=== PATIENT | female | born 1965 | race Caucasian/White ===

== ENCOUNTER 2017-05-15 02:43 | Emergency (ER) | payer MEDICAID, SELFPAY ==
[2017-05-15 02:44] VITALS: BP 109/53; PULSE 74; RESP 19; TEMP 36.7; O2SAT 98; BMI 35.3
--- NOTE | 2017-05-15 02:45 | EKG12_ITS ---
Test Reason : CP, SOB Blood Pressure : / mmHG Vent. Rate : 065 BPM Atrial Rate : 065 BPM P-R Int : 172 ms QRS Dur : 088 ms QT Int : 440 ms P-R-T Axes : 045 036 060 degrees QTc Int : 457 ms Normal sinus rhythm Normal ECG Confirmed by BALTAZAR NULL, GEORGE ([id number]), assistant film editor MARY WANG ([id number]) on 05/16/2017 2:10:57 PM Referred By: TOD Confirmed By:GEORGE LEDESMA MD
--- NOTE | 2017-05-15 02:45 | RAD_ITS ---
STUDY: X-RAY CHEST REASON FOR EXAM: Female, 52 years old. Shortness of breath and chest pain. TECHNIQUE: AP portable chest. COMPARISON: February 24, 2015. FINDINGS: The lungs are clear and expanded. There is no demonstrated pleural abnormality. Normal size heart. Normal mediastinum and nancie. Normal visualized pulmonary arteries. Normal visualized aortic arch and descending thoracic aorta. Normal visualized thoracic spine. Normal visualized ribs, clavicles, and shoulders. There is no demonstrated abnormality of the visualized soft tissue structures of the upper abdomen. RAD/Chest 1 View (Portable) IMPRESSION: No acute cardiopulmonary disease. Electronically Signed: Aryan Field MD at 3:41 EST , Service support ,
[2017-05-15 02:51] VITALS: O2SAT 99
[2017-05-15 02:52] VITALS: O2SAT 100
[2017-05-15 02:57] VITALS: BP 109/53; PULSE 75; RESP 21; O2SAT 98
[2017-05-15 03:01] LABS: Absolute Lymphocyte Count 3.47 X10^3/ul (0.83-4.51); Absolute Neutrophil Count 2.6 X10^3/uL (2.0-7.7); Basophil# 0.06 X10^3/uL; Basophil% 0.9 % (0-1); Eosinophil# 0.17 X10^3/uL; Eosinophils% 2.5 % (0-5); Hematocrit 36.5 % (37-47); Hemoglobin 12.8 g/dl (12.0-15.0); Lymphocyte # 3.47 X10^3/ul (4.0); Lymphocyte % 50.4 % (19-41); Mean Corp Hgb Conc 35.1 g/gl (32-36); Mean Corpuscular Hgb 33.6 pg (27.0-32.0); Mean Corpuscular Volume 95.8 fL (81-99); Monocyte# 0.61 X10^3/uL; Monocyte% 8.9 % (0-10); Neutrophil # 2.57 X10^3/uL (2.7-7.7); Neutrophil % 37.2 % (47-70); POSITIVE COUNT NO; POSITIVE DIFFERENTIAL NO; POSITIVE MORPHOLOGY NO; Platelet Count 321 K/mm3 (150-450); RBC Distribution Width CV 13.3 % (11.6-14.6); RBC Distribution Width SD 44.8 fl (35.1-43.9); Red Blood Count 3.81 M/mm3 (4.2-5.4); White Blood Count 6.9 K/mm3 (4.4-11.0)
--- NOTE | 2017-05-15 03:09 | ED.VISSUMM ---
- ER Visit Summary Date of Service: 05/15/17 Chief Complaint: Chest pain, shortness of breath History of Present Illness: The patient is a 52 F with chest pain shortness of breath. Patient states that she has had a cough for the past few days. She states she cannot find anything that helps the cough go away. She states that now she has begun to have chest pain. She describes it as a heaviness across her chest into her back. Patient states that she was drinking moonshine in an attempt to get the cough to stop. She states that it did not help the pain. Tonight, she was having increasing shortness of breath and called squad. History is hard to gather from the patient. 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 She did follow with Dr. Barrientos, but states she has not seen him in some time. She does smoke daily. She denies any other cardiac risk factor. Physical Examination: Vital signs reviewed General: Well-nourished, well-developed Head: Normocephalic, atraumatic Eyes: Pupils equal and reactive, extraocular muscles intact Neck, supple, no lymphadenopathy Heart: Regular rate and rhythm Respiratory: No distress, clear bilaterally Abdomen: Soft, nontender, nondistended, no peritoneal signs Back: Nontender Extremities: Nontender, no edema, no cords Skin: Normal color no rash Neuro: Alert and oriented, no focal or lateralizing deficits Test Results: EKG was sinus rhythm. There is no acute ischemic change. Screening labs are unremarkable. Emergency Department Course and Treatment: Patient presents with chest pain, cough, shortness of breath. She had clear lungs. Her pain was not reproducible. She does give some history that she may have had a prior KS, but is never had a heart catheterization. Patient was given aspirin. Chest x-ray shows no focal or acute abnormalities. Screening labs including lipase are unremarkable. Initial cardiac enzymes are negative. With the patient's pain in the middle of her chest that goes to her back, I did want to rule out aortic dissection. Patient underwent CTA of the chest and abdomen. The read is currently pending. The patient was very upset that she had to wait so long. Both myself and the nurses did to try to redirect her. She states she does not want to wait any further. I did explain to her with her chest pain and history, it would be important to evaluate this. She states she does not want to stay. Patient is very uncomfortable staying in the room. She states I just have places to go. I have basically begged the patient to stay to complete her workup and she refused. I do feel the patient has capacity to make her own decisions. She understands the risks. I did mental health counselor her that if this is cardiac in nature she can suffer myocardial infarction leading to or permanent disability. She still does not want to stay. I did try to offer her other analgesics to help with her pain. The patient has demanded to leave. At this time, the patient will leave AGAINST MEDICAL ADVICE. She has refused to sign the paperwork. Patient was counseled that if things change that she can return for reevaluation. The patient has left AGAINST MEDICAL ADVICE prior to completion of workup. Treatment Plan: [] Disposition: AGAINST MEDICAL ADVICE Impression: 1. Chest pain This note was generated with [employer] dictation software. It may contain incorrect words, spelling, and punctuation that were not noted in review of the chart prior to signing ED Disposition - Plan for ED Patient: Chief Complaint: Chest Pain Referrals: Renaldo Duran MD [Primary Care Provider] -
[2017-05-15 03:28] LABS: Anion Gap 12 (5-15); BUN 7 mg/dL (7-18); BUN/Creat Ratio 7.7 RATIO (10-20); Calcium,Total 8.4 mg/dL (8.5-10.1); Chloride 99 mmol/L (98-107); Creatinine, Serum 0.91 mg/dL (0.55-1.02); EST Glomerular Filtration Rate 68 mL/min (>60); Est Glom Filt Rate - Afr Amer 83 mL/min (>60); Estimated Creatinine Clearance 61.03 ml/min; Glucose 96 mg/dL (74-106); Potassium 3.7 mmol/L (3.5-5.1); Sodium Level 134 mmol/L (136-145)
--- NOTE | 2017-05-15 03:47 | CT_ITS ---
STUDY: CTA OF THE ABDOMEN AND PELVIS WITH CONTRAST. REASON FOR EXAM: Female, 52 years old. Shortness breath. Chest pain. RADIATION DOSAGE (If Supplied By Facility): CTDIvol = ( 19.68 ) mGy, DLP = ( 896.22 ) mGycm. Individualized dose optimization techniques were used for this CT.? FLUOROSCOPY TIME (if supplied): ( ) minutes/seconds TECHNIQUE: Axial images through the abdomen and pelvis after administration of 100 mL Isovue-370 intravenous contrast with sagittal coronal reconstructions. COMPARISON: Chest x-ray May 15, 2017. FINDINGS: The heart is not enlarged. Lung bases are clear. The liver, gallbladder, pancreas, spleen, adrenal glands, kidneys, ureters, bladder are normal. Uterus absent compatible with hysterectomy. No adnexal masses seen. Stomach is normal. Small intestine is unremarkable. Colon is unremarkable. Postoperative changes suggestive of appendectomy. No intra-abdominal free air. Mild atherosclerotic changes of the abdominal aorta without aneurysmal dilatation. Origins of the celiac axis, superior mesenteric artery, single bilateral renal arteries and inferior mesenteric artery are patent. Mild degenerative changes of the lumbar spine. CT/CT ANGIO ABD&PEL W/O&W/DYE IMPRESSION: No acute findings in the abdomen or pelvis. Mild atherosclerotic calcification of the abdominal aorta without aneurysmal dilatation. Major aortic branch vessels are patent. Electronically Signed: Aryan Field MD at 4:49 EST , Service support ,
--- NOTE | 2017-05-15 03:47 | CT_ITS ---
STUDY: CTA CHEST REASON FOR EXAM: Female, 52 years old. Chest pain. RADIATION DOSAGE (If Supplied By Facility): CTDIvol = ( 11.56 ) mGy, DLP = ( 563.69 ) mGycm TECHNIQUE: The examination was performed with the intravenous administration of 100 ml of Isovue 370 contrast material. Post-processing of the angiographic images was performed, with multiplanar reformation and 3D reconstruction. Individualized dose optimization techniques were used for this CT. COMPARISON: Chest x-ray May 15, 2017. FINDINGS: Normal enhancement of the main pulmonary artery and right and left pulmonary arteries. Normal enhancement of the bilateral peripheral pulmonary arteries. There is no demonstrated pulmonary embolism. Normal thoracic aorta and visualized great vessels. There is no demonstrated aortic dissection. Normal heart and pericardium. Normal mediastinum. Normal hilar regions. Normal visualized trachea and bronchi. The lungs are well expanded. Normal pulmonary parenchyma. Normal pleura. Normal chest wall structures. Mild degenerative changes of the thoracic spine. Normal visualized upper abdomen. CT/CTA Chest W/WO Contrast IMPRESSION: No demonstrated pulmonary embolism or arterial dissection. Electronically Signed: Aryan Field MD at 4:54 EST , Service support ,
[2017-05-15 03:51] LABS: Lipase 168 U/L (73-393)
[2017-05-15 03:53] VITALS: BP 105/81; PULSE 79; RESP 18; O2SAT 98
--- NOTE | 2017-05-15 04:18 | ED.RN ---
WENT TO GIVE PT HER MORPHINE, PT NOT IN ROOM, HER WAS NOT IN THE ROOM EITHER. PT WAS DRESSED AND WITH HER AT THE NURSES STATION. PT WANTED TO LEAVE BECAUSE NOTHING IS WRONG AND I'M NOT GOING TO WAIT THAT LONG. DR. BARON, THIS RN, AND ALFIE RN, EXPLAINED TO PT THAT SHE HER BLOOD WORK LOOKED GOOD BUT THAT IS WHY WE SENT HER FOR THE CT. EXPLAINED TO PT THAT SHE JUST CAME BACK FROM CT AND IT WILL BE 1 HR FOR RESULTS. PT REFUSED TO STAY. IV D/C, PT IS GOING TO CALL A TAXI.
== END 2017-05-15 04:22 | disposition left against medical advice (07) ==
LOC: ED 03:34
PROVIDERS: Emergency Provider Emergency Medicine; Family Provider Family Medicine; PCP Family Medicine
DX: R07.9 Chest pain, unspecified (principal); R06.02 Shortness of breath; R05 Cough; R06.00 Dyspnea, unspecified; R11.0 Nausea; R00.2 Palpitations; F17.200 Nicotine dependence, unspecified, uncomplicated; Z79.899 Other long term (current) drug therapy; I25.2 Old myocardial infarction
CPT/HCPCS: 71045; 71275; 74174; 80048; 80320; 83690; 84484; 85025; 93005; 99285; Q9967; A4216; G0480

== ENCOUNTER 2021-04-05 18:31 | Emergency (ER) | payer MEDICAID, SELFPAY ==
[2021-04-05] VITALS (22 sets, daily range): BP systolic 124–208; BP diastolic 68–110; PULSE 68–86; RESP 11–21; TEMP 36.6–36.8; O2SAT 96–100; BMI 31.8
--- NOTE | 2021-04-05 18:35 | EKG12_ITS ---
Test Reason : DYSRHYTHMIA Blood Pressure : / mmHG Vent. Rate : 072 BPM Atrial Rate : 072 BPM P-R Int : 180 ms QRS Dur : 086 ms QT Int : 412 ms P-R-T Axes : 052 -01 050 degrees QTc Int : 451 ms Normal sinus rhythm Normal ECG Confirmed by BALTAZAR NULL, GEORGE ([id number]), purchase request editor FLORIAN HINSON ([id number]) on 04/06/2021 1:33:37 PM Referred By: EVARISTO Confirmed By:GEORGE LEDESMA MD
--- NOTE | 2021-04-05 18:35 | CT_ITS ---
We are attempting to reach an attending provider to discuss findings. An addendum with communication details will be sent when the communication is complete. EXAM: CT HEAD WITHOUT INTRAVENOUS CONTRAST CLINICAL INDICATION: Neuro deficit, acute, stroke suspected TECHNIQUE: Multiple axial images were obtained of the head without intravenous contrast. This CT exam was performed using one or more of the following dose reduction techniques: automated exposure control, adjustment of the mA and/or kV according to patient size, and/or use of iterative reconstruction technique. This report was created using [employer] report [employer] technology. COMPARISON: None. FINDINGS: BRAIN AND EXTRA-AXIAL SPACES: Unremarkable. No intra- or extra-axial hemorrhage. No evidence of acute infarct. No intracranial mass or mass effect. There is preservation of the albright/white matter interface. Posterior fossa structures are unremarkable. Ventricles are appropriate for age. No hydrocephalus. Basal cisterns are patent. BONES/JOINTS: Unremarkable. No discrete lytic or blastic abnormalities. SINUSES: Unremarkable as visualized. Clear. MASTOID AIR CELLS: Unremarkable. Clear. ORBITS: Visualized globes, extraocular muscles, optic nerves and retrobulbar fat appear unremarkable. CT/STROKE Brain/Head without Cont IMPRESSION: Negative head/brain CT without intravenous contrast. Electronically Signed: Ton Subramanian MD at 18:49 EST , Service support ,
--- NOTE | 2021-04-05 18:36 | CT_ITS ---
We are attempting to reach an attending provider to discuss findings. An addendum with communication details will be sent when the communication is complete. EXAM: CT ANGIOGRAPHY HEAD AND NECK WITH INTRAVENOUS CONTRAST CLINICAL INDICATION: Neuro deficit, acute, stroke suspected TECHNIQUE: [place]/head and neck CT angiography protocol performed with intravenous contrast. This CT exam was performed using one or more of the following dose reduction techniques: automated exposure control, adjustment of the mA and/or kV according to patient size, and/or use of iterative reconstruction technique. This report was created using [employer] report generation technology. MIP reconstructed images were created and reviewed. CONTRAST: IV 100mL Isovue-370 COMPARISON: None. FINDINGS: HEAD: RIGHT ANTERIOR CEREBRAL ARTERY: Unremarkable. No significant stenosis at the visualized segments. Anterior communicating artery is present. No aneurysm. RIGHT MIDDLE CEREBRAL ARTERY: Unremarkable. No significant stenosis at the visualized segments. No aneurysm. RIGHT POSTERIOR CEREBRAL ARTERY: Unremarkable. No occlusion or significant stenosis. No aneurysm. LEFT ANTERIOR CEREBRAL ARTERY: Unremarkable. No significant stenosis at the visualized segments. No aneurysm. LEFT MIDDLE CEREBRAL ARTERY: Unremarkable. No significant stenosis at the visualized segments. No aneurysm. LEFT POSTERIOR CEREBRAL ARTERY: Unremarkable. No occlusion or significant stenosis. No aneurysm. BASILAR ARTERY: Unremarkable. No significant stenosis. No aneurysm. GREAT VESSELS OF AORTIC ARCH: Unremarkable. Normal anatomy, patent. OTHER VASCULATURE: No vascular malformation. NECK: RIGHT COMMON CAROTID ARTERY: Unremarkable. No significant stenosis. No dissection or occlusion. RIGHT INTERNAL CAROTID ARTERY: There is significant soft atherosclerotic plaque formation vs mural thrombus of the origin of the right internal carotid artery with 84% cross sectional diameter stenosis. ALL ABOVE CRITERIA BY NASCET. RIGHT EXTERNAL CAROTID ARTERY: Unremarkable. No occlusion. RIGHT VERTEBRAL ARTERY: The origin of the right vertebral artery is not clearly noted due to motion artifact. It is difficult to exclude underlying stenosis or occlusion. Also the caliber of the right vertebral artery is small making it difficult to note. However, There is distal reconstitution into the distal vertebral artery with possible slow flow and or partial occlusion. Se 2 IM: 278. There is enhancement within the bilateral vertebral arteries with a small right vertebral artery, and a dominant left vertebral artery. LEFT COMMON CAROTID ARTERY: Unremarkable. No significant stenosis. No dissection or occlusion. LEFT INTERNAL CAROTID ARTERY: There is mild atherosclerotic plaque formation of the origin of left internal carotid artery with less than 50% cross sectional diameter stenosis. ALL ABOVE CRITERIA BY NASCET. No dissection or occlusion. LEFT EXTERNAL CAROTID ARTERY: Unremarkable. No occlusion. LEFT VERTEBRAL ARTERY: See above. LUNG APICES: Unremarkable as visualized. SOFT TISSUES: Unremarkable. OTHER FINDINGS: There are no acute findings of the [place] without a demonstrated aneurysm or hemodynamically significant stenosis. ALL ABOVE CRITERIA BY NASCET. CF called. There are degenerative findings of the cervical spine. CAROTID STENOSIS REFERENCE USING NASCET CRITERIA: % ICA stenosis = (1 - narrowest ICA diameter/diameter of distal cervical ICA) x 100. Mild - <50% stenosis. Moderate - 50-69% stenosis. Severe - 70-94% stenosis. Near occlusion - 95-99% stenosis. Occluded - 100% stenosis. CT/STROKE CTA Head AND Neck W/Con IMPRESSION: 1. There is mild atherosclerotic plaque formation of the origin of left internal carotid artery with less than 50% cross sectional diameter stenosis. ALL ABOVE CRITERIA BY NASCET. 2. There is significant soft atherosclerotic plaque formation vs mural thrombus of the origin of the right internal carotid artery with 84% cross sectional diameter stenosis. ALL ABOVE CRITERIA BY NASCET. 3. The origin of the right vertebral artery is not clearly noted due to motion artifact. It is difficult to exclude underlying stenosis or occlusion. Also the caliber of the right vertebral artery is small making it difficult to note. However, There is distal reconstitution into the distal vertebral artery with possible slow flow and or partial occlusion. Se 2 IM: 278. 4. There are no acute findings of the [place] without a demonstrated aneurysm or hemodynamically significant stenosis. ALL ABOVE CRITERIA BY NASCET. Electronically Signed: Ton Subramanian MD at 19:14 EST , Service support ,
--- NOTE | 2021-04-05 18:38 | CASEMGMT ---
Social Work Responding to Stroke Alert. No family present. Patient alert and oriented currently. Will continue to follow. Mustapha WHYTE, HEATHER
[2021-04-05 18:41] LABS: Bedside Glucose 110 mg/dL (70-110)
[2021-04-05] MEDS: Labetalol (Prefilled) 20 MG/4 ML IV (18:49)
[2021-04-05 19:00] LABS: Absolute Lymphocyte Count 2.89 X10^3/uL (0.83-4.51); Absolute Neutrophil Count 4.4 X10^3/uL (2.0-7.7); Basophil# 0.05 X10^3/uL; Basophil% 0.6 % (0-1); Eosinophil# 0.13 X10^3/uL; Eosinophils% 1.6 % (0-5); Hematocrit 45.4 % (37-47); Hemoglobin 15.6 g/dL (12.0-15.0); Lymphocyte # 2.89 X10^3/ul (0.83-4.51); Lymphocyte % 35.3 % (19-41); Mean Corp Hgb Conc 34.4 g/dL (32-36); Mean Corpuscular Hgb 34.9 pg (27.0-32.0); Mean Corpuscular Volume 101.6 fL (81-99); Mean Platelet Vol. 10.6 fl (6.2-12.0); Monocyte# 0.69 X10^3/uL; Monocyte% 8.4 % (0-10); NRBC Flagged by Analyzer 0 % (0-5); Neutrophil # 4.39 X10^3/uL (2.7-7.7); Neutrophil % 53.7 % (47-70); Platelet Count 314 K/mm3 (150-450); RBC Distribution Width CV 13.2 % (11.6-14.6); RBC Distribution Width SD 49.7 fl (35.1-43.9); Red Blood Count 4.47 M/mm3 (4.2-5.4); White Blood Count 8.2 K/mm3 (4.4-11.0)
--- NOTE | 2021-04-05 19:04 | ED.VIS.STROK ---
HPI History of Present Illness Chief Complaint: Numb/Ting Informant: patient Onset/Context/Timing Onset: Today Context: Sudden Onset Timing: Continuous Quality and Location: Positive for Left Face Parasthesia, Left Arm Parasthesia, Left Leg Parasthesia and - (Blurry vision, double vision) Onset: Today at 1700 Worsened by: Nothing Relieved by: Nothing Associated Symptoms Associated Symptoms: Negative for Headache, Nausea, Vomiting and Chest Pain Narrative Narrative: Patient presents with numbness over her left face, arm, and thigh that began today. Patient also admits to some blurred vision and double vision today. Patient states this began around 1700 tonight. Patient states it began rather suddenly. Patient denies any chest pain or shortness of breath. Patient denies any nausea or vomiting. Patient denies any headaches. Patient denies any weakness. Patient states that when she walks she feels like she is leaning to the right. Patient has a history of peripheral arterial disease and hypertension. [facility] Medical History (Updated 04/05/21 @ 20:[address] Frank Multani DO) HTN (hypertension) Mitral valve prolapse Home Medications albuterol sulfate [Ventolin HFA] 2 puff INHALATION Q4H PRN PRN 04/05/21 [History Last Taken Unknown] atenolol 75 mg PO DAILY 04/05/21 [History Last Taken Unknown] famotidine 40 mg PO DAILY 04/05/21 [History Last Taken Unknown] nitroglycerin 0.4 mg SUBLINGUAL Q5M PRN 04/05/21 [History Last Taken Unknown] Allergy/AdvReac Type Severity Reaction Status Date / Time No Known Allergies Allergy Verified 05/15/17 02:53 Surgical History (Updated 04/05/21 @ 20:14 by Eunice Barnes) H/O: hysterectomy History of appendectomy Social History Smoking Status: Current every day smoker tobacco type: cigarettes ROS ROS ED Constitutional Constitutional ED: Denies chills or fever(s) Eyes Eyes: Reports blurry vision and diplopia ENT ENT ED: Denies rhinorrhea or sore throat Cardiovascular Cardiovascular: Denies chest pain or palpitations Respiratory/Chest Respiratory/Chest: Denies cough or dyspnea Gastrointestinal Gastrointestinal: Denies nausea or vomiting Genitourinary Genitourinary ED: Denies dysuria or hematuria Musculoskeletal Musculoskeletal: Denies back pain or neck pain Integumentary Denies abscess or rash Neurologic Neurologic: Reports paresthesias LUE and LLE; Denies headache(s) or weakness Allergic/Immunologic Allergic/Immunologic ED: Denies mouth swelling or urticaria EXAM Physical Exam Const Vital Signs: 04/05/21 18:32 04/05/21 18:35 04/05/21 18:50 Temperature 97.8 F 97.8 F Temperature Source Temporal Temporal Pulse Rate 75 82 Respiratory Rate 15 15 Blood Pressure 208/104 H 179/97 H Blood Pressure Mean 138 124 Blood Pressure Source Blood Pressure Position Blood Pressure Location Pulse Ox 99 99 Oxygen Delivery Method Room Air Room Air 04/05/21 18:56 04/05/21 19:00 04/05/21 19:07 Temperature 97.8 F Temperature Source Temporal Pulse Rate 82 72 Respiratory Rate 13 14 Blood Pressure 201/105 H 205/110 H Blood Pressure Mean 137 141 Blood Pressure Source Monitor Blood Pressure Position Semi-Fowlers Blood Pressure Location Right Arm Pulse Ox 99 99 100 Oxygen Delivery Method Room Air Room Air 04/05/21 19:16 04/05/21 19:20 04/05/21 19:35 Temperature 97.8 F 97.9 F Temperature Source Temporal Temporal Pulse Rate 81 86 Respiratory Rate 11 L 13 Blood Pressure 182/95 H 165/97 H 161/92 H Blood Pressure Mean 119 115 Blood Pressure Source Monitor Monitor Blood Pressure Position Semi-Fowlers Semi-Fowlers Blood Pressure Location Right Arm Right Arm Pulse Ox 98 98 Oxygen Delivery Method Room Air Room Air 04/05/21 19:50 04/05/21 20:00 04/05/21 20:15 Temperature 98.3 F 98.2 F 98 F Temperature Source Temporal Temporal Temporal Pulse Rate 83 81 83 Respiratory Rate 17 17 14 Blood Pressure 157/90 H 148/92 H 149/71 H Blood Pressure Mean 112 110 97 Blood Pressure Source Monitor Monitor Monitor Blood Pressure Position Semi-Fowlers Semi-Fowlers Semi-Fowlers Blood Pressure Location Right Arm Right Arm Right Arm Pulse Ox 97 98 97 Oxygen Delivery Method Room Air Room Air Room Air 04/05/21 20:30 04/05/21 20:45 04/05/21 21:00 Temperature 97.8 F 98 F 98 F Temperature Source Temporal Temporal Temporal Pulse Rate 83 81 85 Respiratory Rate 16 18 14 Blood Pressure 139/89 H 141/87 H 153/95 H Blood Pressure Mean 105 105 114 Blood Pressure Source Monitor Monitor Monitor Blood Pressure Position Semi-Fowlers Supine Semi-Fowlers Blood Pressure Location Right Arm Right Arm Right Arm Pulse Ox 97 99 97 Oxygen Delivery Method Room Air Room Air Room Air 04/05/21 21:15 04/05/21 21:45 04/05/21 22:15 Temperature 97.8 F 97.8 F 97.8 F Temperature Source Temporal Temporal Temporal Pulse Rate 86 82 84 Respiratory Rate 15 17 15 Blood Pressure 155/91 H 136/92 H 141/81 H Blood Pressure Mean 112 106 101 Blood Pressure Source Monitor Monitor Monitor Blood Pressure Position Semi-Fowlers Semi-Fowlers Semi-Fowlers Blood Pressure Location Right Arm Right Arm Right Arm Pulse Ox 97 97 97 Oxygen Delivery Method Room Air Room Air Room Air 04/05/21 22:23 04/05/21 22:45 Temperature Temperature Source Pulse Rate 80 85 Respiratory Rate 12 21 H Blood Pressure 141/81 H 138/102 H Blood Pressure Mean 101 114 Blood Pressure Source Blood Pressure Position Blood Pressure Location Pulse Ox 97 96 Oxygen Delivery Method Room Air Positive well nourished and well developed General Appearance ED: well developed HEENT Reports moist mucous membranes Neck supple and no JVD Resp normal respiratory effort and clear to auscultation bilaterally Cardio regular rate, regular rhythm and no murmurs GI normal to inspection, nondistended, normoactive bowel sounds and non-tender Palpation: soft Extremity normal to inspection General Extremety ED: Negative for edema or tenderness General Extremity: Negative for edema Neuro oriented x3 and CN's II-XII intact bilaterally Neuro Narrative: There is decreased sensation with light touch in the left upper extremity, left thigh, and left face. Megha Coma Scale: document GCS findings Spontaneous Obeys Commands Oriented 15 Sensorium / Orientation: alert Motor Exam: strength 5/5 throughout Psych mental status grossly normal Skin no rashes or lesions noted STROKE Vital Signs/Narrative: Vital Signs Temp Pulse Resp BP Pulse Ox 04/05/21 22:45 85 21 H 138/102 H 96 04/05/21 22:23 80 12 141/81 H 97 04/05/21 22:15 97.8 F 84 15 141/81 H 97 04/05/21 21:45 97.8 F 82 17 136/92 H 97 04/05/21 21:15 97.8 F 86 15 155/91 H 97 04/05/21 21:00 98 F 85 14 153/95 H 97 04/05/21 20:45 98 F 81 18 141/87 H 99 04/05/21 20:30 97.8 F 83 16 139/89 H 97 04/05/21 20:15 98 F 83 14 149/71 H 97 04/05/21 20:00 98.2 F 81 17 148/92 H 98 04/05/21 19:50 98.3 F 83 17 157/90 H 97 04/05/21 19:35 97.9 F 86 13 161/92 H 98 04/05/21 19:20 97.8 F 81 11 L 165/97 H 98 04/05/21 19:16 182/95 H 04/05/21 19:07 97.8 F 72 14 205/110 H 100 04/05/21 19:00 82 13 201/105 H 99 04/05/21 18:56 99 MDM MDM MDM Narrative Medical decision making narrative: Stroke alert was activated. Initial CT scan of the brain was obtained. There is no acute abnormality noted. CTA of the head and neck was obtained. There is some stenosis of the right internal carotid artery and right vertebral artery. There is collateral flow noted. There is no large vessel occlusion. EKG was obtained. On my interpretation, it showed a normal sinus rhythm with a rate of 72. [place] interval, QRS interval, and QTc intervals were all normal. Roca was normal. There are no acute ST or T wave changes. CBC was within normal limits. PT with INR and PTT were normal. Basic metabolic profile was obtained. Initial high-sensitivity troponin was normal. Stroke neurologist from [facility] evaluated the patient. He felt that since the patient was having visual disturbances, he recommended tPA administration despite the low NIH scale. Patient is agreeable with this. Patient's blood pressure initially was 208/104. The blood pressure was treated with labetalol and then started on a Cardene drip. Patient's blood pressure improved with this. Patient's vision was still blurry. Because of this, patient is agreeable to receive tPA. This was ordered and administered. Portable 1 view chest x-ray was obtained. On my interpretation, lung noel are clear. There is normal cardiac silhouette. Bony thorax is normal. There is no acute process noted. Radiologist also interpreted the x-ray and agrees. Case was discussed with the hospitalist. He felt that the patient needed to be transferred to a facility that can manage her stenosis of her right internal carotid artery as well as her vertebral artery stenosis. Patient is agreeable with this. Case was discussed with [facility]. Patient was accepted to be transferred to the emergency department [facility] to the service of Dr. Schuster. Patient understands and is agreeable with the plan. All questions were answered. Lab Data Attestation: I reviewed the patient's lab results. Labs: Laboratory Results - last 24 hr 04/05/21 04/05/21 04/05/21 18:37 18:50 18:50 WBC 8.2 RBC 4.47 Hgb 15.6 H Hct 45.4 MCV 101.6 H MCH 34.9 H MCHC 34.4 RDW Std Deviation 49.7 H RDW Coeff of Frieda 13.2 Plt Count 314 MPV 10.6 Immature Gran % (Auto) 0.400 Neut % (Auto) 53.7 Lymph % (Auto) 35.3 [place] % (Auto) 8.4 Eos % (Auto) 1.6 Baso % (Auto) 0.6 Absolute Neuts (auto) 4.4 Absolute Lymphs (auto) 2.89 Nucleated RBC % 0 PT 12.4 INR 1.0 APTT 26.9 Sodium Potassium Chloride Carbon Dioxide Anion Gap BUN Creatinine Estim Creat Clear Calc Est GFR (MDRD) Af Amer Est GFR (MDRD) Non-Af BUN/Creatinine Ratio Glucose Calcium Troponin I High Sens POC Glucose 110 04/05/21 04/05/21 18:50 20:25 WBC RBC Hgb Hct MCV MCH MCHC RDW Std Deviation RDW Coeff of Frieda Plt Count MPV Immature Gran % (Auto) Neut % (Auto) Lymph % (Auto) [place] % (Auto) Eos % (Auto) Baso % (Auto) Absolute Neuts (auto) Absolute Lymphs (auto) Nucleated RBC % PT INR APTT Sodium 137 Potassium 3.7 Chloride 103 Carbon Dioxide 25.0 Anion Gap 9 BUN 10 Creatinine 1.19 H Estim Creat Clear Calc 48.24 Est GFR (MDRD) Af Amer 60 Est GFR (MDRD) Non-Af 50 L BUN/Creatinine Ratio 8.4 L Glucose 102 Calcium 9.2 Troponin I High Sens 4 3 POC Glucose Radiography Diagnostic Testing: Clinical Impression(s) from Imaging Studies Brain CT 04/05/21 18:35 IMPRESSION: Negative head/brain CT without intravenous contrast. Electronically Signed: Ton Subramanian MD at 18:49 EST , Service support , ADDENDUM: 04/05/21 1900 IMPRESSION: Negative head/brain CT without intravenous contrast. N.B. : The above Results were Read Back by Ton Subramanian MD to Frank Multani DO, DO, and understanding confirmed on 04/05/2021 18:53:37 (ET). Electronically Signed: Ton Subramanian MD at 18:49 EST , Service support , Head/Neck CTA 04/05/21 18:36 IMPRESSION: 1. There is mild atherosclerotic plaque formation of the origin of left internal carotid artery with less than 50% cross sectional diameter stenosis. ALL ABOVE CRITERIA BY NASCET. 2. There is significant soft atherosclerotic plaque formation vs mural thrombus of the origin of the right internal carotid artery with 84% cross sectional diameter stenosis. ALL ABOVE CRITERIA BY NASCET. 3. The origin of the right vertebral artery is not clearly noted due to motion artifact. It is difficult to exclude underlying stenosis or occlusion. Also the caliber of the right vertebral artery is small making it difficult to note. However, There is distal reconstitution into the distal vertebral artery with possible slow flow and or partial occlusion. Se 2 IM: 278. 4. There are no acute findings of the [place] without a demonstrated aneurysm or hemodynamically significant stenosis. ALL ABOVE CRITERIA BY NASCET. Electronically Signed: Ton Subramanian MD at 19:14 EST , Service support , ADDENDUM: 04/05/21 1922 IMPRESSION: 1. There is mild atherosclerotic plaque formation of the origin of left internal carotid artery with less than 50% cross sectional diameter stenosis. ALL ABOVE CRITERIA BY NASCET. 2. There is significant soft atherosclerotic plaque formation vs mural thrombus of the origin of the right internal carotid artery with 84% cross sectional diameter stenosis. ALL ABOVE CRITERIA BY NASCET. 3. The origin of the right vertebral artery is not clearly noted due to motion artifact. It is difficult to exclude underlying stenosis or occlusion. Also the caliber of the right vertebral artery is small making it difficult to note. However, There is distal reconstitution into the distal vertebral artery with possible slow flow and or partial occlusion. Se 2 IM: 278. 4. There are no acute findings of the [place] without a demonstrated aneurysm or hemodynamically significant stenosis. ALL ABOVE CRITERIA BY NASCET. N.B. : The above Results were Read Back by Ton Subramanian MD to Frank Multani DO, DO, and understanding confirmed on 04/05/2021 19:15:42 (ET). Electronically Signed: Ton Subramanian MD at 19:14 EST , Service support , Chest X-Ray 04/05/21 19:44 IMPRESSION: There are no acute findings. Electronically Signed: Ton Subramanian MD at 19:58 EST , Service support , EKG Initial EKG: Attestation: I personally reviewed and interpreted this EKG as follows: Interpretation: Sinus Rhythm (72) and No Acute Injury Pattern Prior EKG tracings: available for review Prior: Unchanged (05/15/2017) Treatment and Re-Evaluation Vital Sign Attestation:: Vital signs were reviewed prior to transfer. They are stable. Stroke Documentation Questions Stroke Team Activated: Yes Reviewed Inclusion/Exclusion criteria: Yes IV Alteplase (t-PA) Administered: Yes No contraindications for IV Alteplase (t-PA) administration.: Yes Alteplase (t-PA) risks, benefits, alternative discussed: Yes Critical Care Time Critical Care Time: Yes Critical care time (excluding procedures): 30-74 minutes (44), Including time spent:, Discussing w/Patient &/or Family/Head Of Store Operations, Discussing w/Consultants, Arranging Admission or Transfer and Performing Direct Patient Care at Bedside Discharge Plan Triage Chief Complaint: Numb/Ting ED Provider: Frank Multani Dx/Rx/DC Orders Clinical Impression: Acute stroke due to ischemia Prescriptions: No Action albuterol sulfate [Ventolin HFA] 90 mcg/actuation HFA aerosol inhaler 2 puff INHALATION Q4H PRN PRN (Reason: Wheezing) RF: 0 atenolol 50 mg tablet 75 mg PO DAILY RF: 0 famotidine 40 mg Tablet 40 mg PO DAILY RF: 0 nitroglycerin 0.4 mg Tablet, Sublingual 0.4 mg SUBLINGUAL Q5M PRN (Reason: Chest Pain) RF: 0 Primary Care Provider: Renaldo Duran Referrals: Renaldo Duran MD [Primary Care Provider] - Disposition Disposition: Acute Care Hospital Discharge Location: [facility]
[2021-04-05 19:07] LABS: Prothrombin Time (Protime)PT. 12.4 SECONDS (11.7-14.9)
[2021-04-05] MEDS: Nicardipine HCl-0.9% Sod Chlor 20 MG/200 ML IV.SOLN 50 MG IV (19:07)
[2021-04-05 19:09] LABS: Partial Thromboplast Time 26.9 Seconds (24.1-36.2)
[2021-04-05 19:14] LABS: Anion Gap 9 (5-15); BUN 10 mg/dL (7-18); BUN/Creat Ratio 8.4 RATIO (10-20); Calcium,Total 9.2 mg/dL (8.5-10.1); Chloride 103 mmol/L (98-107); Creatinine, Serum 1.19 mg/dL (0.55-1.02); EST Glomerular Filtration Rate 50 mL/min (>60); Est Glom Filt Rate - Afr Amer 60 mL/min (>60); Estimated Creatinine Clearance 48.24 ml/min; Glucose 102 mg/dL (74-106); Potassium 3.7 mmol/L (3.5-5.1); Sodium Level 137 mmol/L (136-145); Troponin-I HS 4 pg/mL (3.0-54.0)
--- NOTE | 2021-04-05 19:30 | ED.RN ---
PER [facility], TPA HELD UNTIL BLOOD PRESSURE <185/110 WITH CARDENE DRIP. AFTER BLOOD PRESSURES <185/110, REASSESS VISION, IF ANY VISUAL DEFICITS REMAIN, ADMIN TPA. PT CONTINUED WITH BLURRED VISION AFTER BLOOD PRESSURE <185/110, TPA ADMINISTERED PER DR MORAES.
--- NOTE | 2021-04-05 19:44 | RAD_ITS ---
STUDY: X-RAY CHEST REASON FOR EXAM: Female, 56 years old. CHEST PAIN Technologist Notes VISUAL CHANGES, N/T LEFT SIDE.Neuro deficit, acute, stroke suspected TECHNIQUE: XR Chest 1 View COMPARISON: 05/15/17 FINDINGS: There is no demonstrated pleural abnormality. Normal size heart. Normal mediastinum and nancie. Normal visualized pulmonary arteries. Normal visualized aortic arch and descending thoracic aorta. Normal visualized thoracic spine. Normal visualized ribs, clavicles, and shoulders. There is no demonstrated abnormality of the visualized soft tissue structures of the upper abdomen. RAD/Chest 1 View IMPRESSION: There are no acute findings. Electronically Signed: Ton Subramanian MD at 19:58 EST , Service support ,
[2021-04-05 21:02] LABS: Troponin-I HS 3 pg/mL (3.0-54.0)
== END 2021-04-05 23:32 | disposition short-term general hospital (02) ==
PROVIDERS: Emergency Provider Emergency Medicine; PCP Family Medicine; Visit Provider Emergency Medicine
DX: I63.233 Cerebral infarction due to unspecified occlusion or stenosis of bilateral carotid arteries (principal); F17.210 Nicotine dependence, cigarettes, uncomplicated; I10 Essential (primary) hypertension; Z79.899 Other long term (current) drug therapy
CPT/HCPCS: 70450; 70496; 70498; 71045; 80048; 82962; 84484; 85025; 85610; 85730; 93005; 96361; 96365; 96366; 96367; 96375; 99285; J2997; J7050; Q9967; A4216

== ENCOUNTER 2021-05-05 06:33 | Outpatient (CLI) | payer MEDICAID, SELFPAY ==
--- NOTE | 2021-05-05 13:11 | STRESSREP ---
Stress Test Report Date: 05-05-2021 Procedure: Pharmacologic stress nuclear imaging study Indications: Peripheral arterial occlusive disease/carotid artery disease; preoperative cardiovascular evaluation Consent: Per the patient Procedure: The patient underwent pharmacologic (Regadenoson 0.4mg ) evaluation with a peak heart rate of 98 beats per minute (60%predicted maximal heart rate) and a peak blood pressure of 142/80 mmHg. The baseline ECG demonstrated normal sinus rhythm. The peak pharmacologic ECG demonstrated no obvious ECG changes. There was an isolated PVC during infusion. There was no complaint of chest discomfort during pharmacologic infusion or recovery. The examination was discontinued secondary to completion of protocol. Impression: 1. Pharmacologic (Regadenoson) evaluation 2. Peak pharmacologic ECG with no obvious ECG changes. 3. There was an isolated PVC during infusion. 4. Nuclear images pending Myocardial perfusion imaging study: Technique: The patient was injected with 10.9 millicuries of technetium 99m Cardiolite and subsequently rest SPECT Cardiolite nuclear imaging was obtained in the horizontal long, vertical long, and short axis views. The patient underwent pharmacologic (Regadenoson) evaluation with a peak heart rate of 98 beats per minute (60% percent predicted maximal heart rate) and a peak blood pressure of 142/80 mmHg. The patient was injected with 33.3 millicuries of technetium 99m Cardiolite and subsequently stress SPECT Cardiolite nuclear imaging was obtained in the horizontal long, vertical long, and short axis views. A gated Cardiolite study at peak stress was obtained. Interpretation: Rest and stress SPECT Cardiolite nuclear imaging status post realignment, normalization, and attenuation correction demonstrate the appearance of an element of body motion during image acquisition and otherwise relative uniform tracer uptake and myocardial perfusion appearing within normal limits. There is end systolic thickening and brightening. The gated Cardiolite study demonstrates myocardial thickening and inward wall motion. The reported LVEF is 79%. Impression: 1. Rest and stress SPECT Cardiolite nuclear imaging demonstrate relative uniform tracer uptake and myocardial perfusion appearing within normal limits. 2. The gated Cardiolite study reports an LVEF of 79%. This note was generated with [employer] software. It may contain incorrect words, spelling, and punctuation that were not noted in checking the note before signing.
== END 2021-05-05 23:59 | disposition home or self-care (01) ==
PROVIDERS: PCP Nurse Practitioner Primary Care; Referring Provider Internal Medicine Cardiovascular Disease; Visit Provider Internal Medicine Cardiovascular Disease
DX: Z01.810 Encounter for preprocedural cardiovascular examination (principal); I65.21 Occlusion and stenosis of right carotid artery; I34.1 Nonrheumatic mitral (valve) prolapse; I10 Essential (primary) hypertension; Z86.73 Personal history of transient ischemic attack (TIA), and cerebral infarction without residual deficits
CPT/HCPCS: 78452; 93017; A9500; A4216; J2785

== ENCOUNTER 2021-06-14 11:22 | Outpatient (CLI) | payer MEDICAID, SELFPAY ==
[2021-06-14 15:30] LABS: Hematocrit 36.8 % (37-47); Hemoglobin 12.6 g/dL (12.0-15.0); Mean Corp Hgb Conc 34.2 g/dL (32-36); Mean Corpuscular Hgb 33.3 pg (27.0-32.0); Mean Corpuscular Volume 97.4 fL (81-99); Mean Platelet Vol. 10.5 fl (6.2-12.0); Platelet Count 308 K/mm3 (150-450); RBC Distribution Width CV 12.8 % (11.6-14.6); RBC Distribution Width SD 45.1 fl (35.1-43.9); Red Blood Count 3.78 M/mm3 (4.2-5.4); White Blood Count 7.2 K/mm3 (4.4-11.0)
[2021-06-14 16:03] LABS: Erythrocyte Sedimentation Rate 29 mm/hr (0-30)
[2021-06-16 18:26] LABS: ANTINUCLEAR ANTIBODIES DIRECT Negative (Negative)
[2021-06-22 18:08] LABS: Complement C3 174 mg/dL (82-167); Dilute Prothrombin Time (dPT) 35.6 sec (0.0-47.6); Dilute Russell Viper Venom 51.3 sec (0.0-47.0); PTT-LA 33.8 sec (0.0-51.9); Protein C Antigen 103 % (60-150); Protein S, Free 132 % (61-136); Thrombin Time 15.9 sec (0.0-23.0); dPT Confirm Ratio 1.15 Ratio (0.00-1.34)
[2021-06-22 20:20] LABS: Anti-Cardiolipin Ab, IgA, Qn < 9 APL U/mL (0-11); Anti-Cardiolipin Ab, IgG, Qn < 9 GPL U/mL (0-14); Anti-Cardiolipin Ab, IgM, Qn < 9 MPL U/mL (0-12); Anti-Thrombin 3 AG, Immunol 102 % (72-124); Antithrombin 3 Function 125 % (75-135); Complement CH50 55 U/mL (>41); Interpretation Comment: (.); Protein C, Functional 152 % (73-180); Protein S, Funtional 89 % (63-140); Protein S, Total 116 % (60-150)
== END 2021-06-14 23:59 | disposition home or self-care (01) ==
LOC: MTLAB 11:23
PROVIDERS: PCP Nurse Practitioner Primary Care; Referring Provider Psychiatry & Neurology Neurology; Visit Provider Psychiatry & Neurology Neurology
DX: I63.9 Cerebral infarction, unspecified (principal)
CPT/HCPCS: 36415; 81240; 81241; 85027; 85300; 85301; 85302; 85303; 85305; 85306; 85652; 86038; 86147; 86160; 86162; 86225; 86235

== ENCOUNTER 2021-06-20 11:42 | Outpatient (CLI) | payer MEDICAID, SELFPAY ==
[2021-06-20 16:25] LABS: ALB/GLOB Ratio 0.9 RATIO (0.9-2.4); AST(SGOT) 20 U/L (15-37); Alanine Aminotransfer ALT/SGPT 38 U/L (13-56); Albumin, Serum 3.7 g/dL (3.2-5.0); Alkaline Phosphatase 135 U/L (45-117); Anion Gap 9 (5-15); BUN 13 mg/dL (7-18); BUN/Creat Ratio 13.7 RATIO (10-20); Calcium,Total 8.9 mg/dL (8.5-10.1); Chloride 104 mmol/L (98-107); Cholesterol 126 mg/dL (200); Creatinine, Serum 0.95 mg/dL (0.55-1.02); EST Glomerular Filtration Rate 64 mL/min (>60); Est Glom Filt Rate - Afr Amer 78 mL/min (>60); Glucose 96 mg/dL (74-106); High Density Lipoprotein 47 mg/dL; Potassium 3.8 mmol/L (3.5-5.1); Protein, Total 7.7 g/dL (6.4-8.2); Sodium Level 138 mmol/L (136-145); Triglycerides 89 mg/dL; Very Low Density Lipoprotein 18 mg/dL (5-40)
== END 2021-06-20 23:59 | disposition home or self-care (01) ==
LOC: MTLAB 11:43
PROVIDERS: PCP Nurse Practitioner Primary Care; Referring Provider Psychiatry & Neurology Neurology; Visit Provider Psychiatry & Neurology Neurology
DX: I63.9 Cerebral infarction, unspecified (principal)
CPT/HCPCS: 36415; 80053; 80061

== ENCOUNTER 2021-06-30 10:01 | Outpatient (CLI) | payer MEDICAID, SELFPAY ==
--- NOTE | 2021-06-30 10:04 | ART_ITS ---
Reason For Study: absent pulses L foot and diminished pulses R foot Procedure A bilateral lower extremity continuous wave Doppler with analog waveform analysis and ankle brachial indexes. Left Segmental Pressures Left brachial= 146mmHg. Left posterior tibial artery = 163mmHg. Left dorsalis pedis artery = 147mmHg. The left dorsalis pedis waveforms are triphasic. The left posterior tibial artery waveforms are triphasic. Right Segmental Pressures Right brachial= 141mmHg. Right posterior tibial artery = 162mmHg. Right dorsalis pedis artery = 162mmHg. The right dorsalis pedis waveforms are triphasic. The right posterior tibial artery waveforms are triphasic. Indices The right ankle brachial index by the dorsalis pedis is 1.11. The right ankle brachial index by the posterior tibial artery is 1.11. The left ankle brachial index by the posterior tibial artery is 1.12. The left ankle brachial index by the dorsalis pedis is 1.01. VL/Ankle Brachial Index Interpretation Summary Bilateral lower extremities with no significant occlusive disease at rest with an SLOAN 1.11 and 1.12 with bilateral triphasic flow. Ordering Physician: Carlos Mehta Performed By: Hans Polk RVT
== END 2021-06-30 23:59 | disposition home or self-care (01) ==
LOC: CVS 10:03
PROVIDERS: PCP Nurse Practitioner Primary Care; Referring Provider Psychiatry & Neurology Neurology; Visit Provider Psychiatry & Neurology Neurology
DX: I73.9 Peripheral vascular disease, unspecified (principal)
CPT/HCPCS: 93922

== ENCOUNTER → 2021-09-29 | Outpatient (CLI) | payer MEDICAID, SELFPAY ==
[2021-10-01 14:10] LABS: Dilute Prothrombin Time (dPT) 33.6 sec (0.0-47.6); Dilute Russell Viper Venom 40.6 sec (0.0-47.0); Thrombin Time 16.8 sec (0.0-23.0); dPT Confirm Ratio 1.08 Ratio (0.00-1.34)
[2021-10-01 15:11] LABS: Complement C3 150 mg/dL (82-167); Interpretation Comment: (.)
== END | disposition home or self-care (01) ==
LOC: MTLAB 10:27
PROVIDERS: PCP Nurse Practitioner Primary Care; Referring Provider Psychiatry & Neurology Neurology; Visit Provider Psychiatry & Neurology Neurology
DX: Z86.73 Personal history of transient ischemic attack (TIA), and cerebral infarction without residual deficits (principal)
CPT/HCPCS: 36415; 86160

== ENCOUNTER → 2021-12-30 | Outpatient (CLI) | payer MEDICAID, SELFPAY ==
[2021-12-30 15:53] LABS: AST(SGOT) 16 U/L (15-37); Alanine Aminotransfer ALT/SGPT 32 U/L (13-56); Albumin, Serum 3.6 g/dL (3.2-5.0); Alkaline Phosphatase 120 U/L (45-117); Bilirubin, Direct 0.13 mg/dL (0.00-0.30); Cholesterol 154 mg/dL (200); High Density Lipoprotein 61 mg/dL; Protein, Total 7.6 g/dL (6.4-8.2); Triglycerides 128 mg/dL; Very Low Density Lipoprotein 26 mg/dL (5-40)
== END | disposition home or self-care (01) ==
LOC: MTLAB 13:28
PROVIDERS: PCP Nurse Practitioner Primary Care; Referring Provider Psychiatry & Neurology Neurology; Visit Provider Psychiatry & Neurology Neurology
DX: Z86.73 Personal history of transient ischemic attack (TIA), and cerebral infarction without residual deficits (principal)
CPT/HCPCS: 36415; 80061; 80076

== ENCOUNTER → 2022-01-17 | Outpatient (CLI) | payer MEDICAID, SELFPAY ==
--- NOTE | 2022-01-17 12:44 | CDU_ITS ---
Reason For Study: S/P CEA Rt. Velocities/BP Lt. Velocities/BP Prox CCA 55.1/21.1 cm/sec. Prox CCA 114.6/37.2 cm/sec. Mid CCA 70.2/27.7 cm/sec. Mid CCA 90.0/32.3 cm/sec. Dist CCA 62.6/24.8 cm/sec. Dist CCA 86.3/32.3 cm/sec. Prox ICA 63.9/28.9 cm/sec. Prox ICA 85.0/27.8 cm/sec. Mid ICA 100.2/43.7 cm/sec. Mid ICA 70.7/28.9 cm/sec. Dist ICA 89.1/37.6 cm/sec. Dist ICA 96.0/44.3 cm/sec. Rt. ICA/CCA = 1.4. Lt. ICA/CCA = 1.1. Prox ECA 46.9/13.8 cm/sec. Prox ECA 160.9/42.4 cm/sec. Rt. Vert. 12.9/4.3 cm/sec. Lt. Vert. 71.8/24.5 cm/sec. Right Extracranial There is intimal thickening but no significant atherosclerotic plaque noted in the right common carotid artery. There is heterogeneous, irregular atherosclerotic plaque noted in the right internal carotid artery. No flow could be demonstrated in the prox ECA. Flow is seen in the mid ECA. Antegrade flow is noted in the right vertebral artery. Left Extracranial There is intimal thickening but no significant atherosclerotic plaque noted in the left common carotid artery. There is homogeneous, smooth atherosclerotic plaque noted in the left internal carotid artery. There is homogeneous, smooth atherosclerotic plaque noted in the left external carotid artery. Antegrade flow is noted in the left vertebral artery. Procedure Carotid Duplex 22983. This is a Carotid Duplex examination using B-mode, color flow and specral Doppler. The exam was diagnostic. Exam performed in department. VL/Carotid Duplex Ultrasound Interpretation Summary Mild (<50%) stenosis right extracranial internal carotid. Mild (<50%) stenosis left extracranial internal carotid. Flow within the vertebral arteries is antegrade bilaterally. Ordering Physician: Zeeshan Gamboa Performed By: Hans Polk RVT
== END | disposition home or self-care (01) ==
LOC: CVS 12:44
PROVIDERS: PCP Nurse Practitioner Primary Care; Referring Provider Surgery Vascular Surgery; Visit Provider Surgery Vascular Surgery
DX: I65.23 Occlusion and stenosis of bilateral carotid arteries (principal)
CPT/HCPCS: 93880

== ENCOUNTER → 2022-10-31 | Outpatient (CLI) | payer MEDICAID, SELFPAY ==
[2022-10-31 12:22] LABS: Hematocrit 42.7 % (37-47); Mean Corp Hgb Conc 32.8 g/dL (32-36); Mean Corpuscular Hgb 34.5 pg (27.0-32.0); Mean Corpuscular Volume 105.2 fL (81-99); Platelet Count 327 K/mm3 (150-450); RBC Distribution Width CV 12.2 % (11.6-14.6); RBC Distribution Width SD 47.8 fl (35.1-43.9); Red Blood Count 4.06 M/mm3 (4.2-5.4); White Blood Count 8.3 K/mm3 (4.4-11.0)
[2022-10-31 12:46] LABS: ALB/GLOB Ratio 0.8 RATIO (0.9-2.4); AST(SGOT) 46 U/L (15-37); Alanine Aminotransfer ALT/SGPT 57 U/L (13-56); Albumin, Serum 3.5 g/dL (3.2-5.0); Alkaline Phosphatase 137 U/L (45-117); Anion Gap 9 (5-15); BUN 13 mg/dL (7-18); BUN/Creat Ratio 12.4 RATIO (10-20); Calcium,Total 9.4 mg/dL (8.5-10.1); Chloride 106 mmol/L (98-107); Cholesterol 137 mg/dL (200); Creatinine, Serum 1.05 mg/dL (0.55-1.02); EST Glomerular Filtration Rate 57 mL/min (>60); Est Glom Filt Rate - Afr Amer 69 mL/min (>60); Globulin 4.2 g/dL (2.2-4.2); Glucose 102 mg/dL (74-106); High Density Lipoprotein 64 mg/dL; Potassium 4.1 mmol/L (3.5-5.1); Protein, Total 7.7 g/dL (6.4-8.2); Sodium Level 138 mmol/L (136-145); Triglycerides 138 mg/dL; Very Low Density Lipoprotein 28 mg/dL (5-40)
== END | disposition home or self-care (01) ==
PROVIDERS: PCP Nurse Practitioner Primary Care; Referring Provider Psychiatry & Neurology Neurology; Visit Provider Psychiatry & Neurology Neurology
DX: Z86.73 Personal history of transient ischemic attack (TIA), and cerebral infarction without residual deficits (principal)
CPT/HCPCS: 36415; 80053; 80061; 85027

== ENCOUNTER 2022-11-14 02:36 | Emergency (ER) | payer MEDICAID, SELFPAY ==
[2022-11-14 02:37] VITALS: BP 157/98; PULSE 88; RESP 22; TEMP 36.9; O2SAT 95; BMI 36.3
--- NOTE | 2022-11-14 02:52 | EX.ED.DYSGE1 ---
HPI History of Present Illness Chief Complaint: Mental Health Informant: patient Narrative Narrative: Patient presents with 's deputy after being called for possible suicide attempt. Patient denies that she was trying to hurt herself. She states that she has trouble taking care of herself let alone her . She states tonight he would not leave her alone and she was trying to sleep in the back bedroom. She got up and went to the garage to sit in her car with her blanket thinking that he would leave her alone there. She does admit to having her car running. She states the garage door was closed but the side door was open to allow some ventilation. She states she had to go to the bathroom so she tried to go back in the house but her had locked her out. She states at that time she realized he was on the phone with 911 telling them that she was suicidal. [facility] Medical History Carpal tunnel syndrome Cerebral infarct COPD (chronic obstructive pulmonary disease) Essential hypertension Glaucoma High cholesterol History of stroke HTN (hypertension) Hypoglycemia Migraines Mitral valve prolapse Polycystic ovaries Preoperative cardiovascular examination Stenosis of right carotid artery Home Medications albuterol sulfate 90 mcg/actuation aerosol inhaler (Ventolin HFA) 2 puff inhalation Q4H PRN PRN Wheezing 04/05/21 [History Last Taken Unknown] nitroglycerin 0.4 mg sublingual tablet 0.4 mg sublingual Q5M PRN Chest Pain 04/05/21 [History Last Taken Unknown] atenolol 50 mg tablet 50 mg PO DAILY 06/14/21 [History Last Taken Unknown] famotidine 40 mg tablet 20 mg PO DAILY 06/14/21 [History Last Taken Unknown] aspirin 81 mg tablet,delayed release (Adult Low Dose Aspirin) 81 mg PO DAILY #30 tabs 12/20/21 [Rx Last Taken Unknown] lisinopril 5 mg tablet 5 mg PO QDAY #90 tabs 07/13/22 [Rx Last Taken Unknown] atorvastatin 40 mg tablet 40 mg PO DAILY #30 tabs 09/18/22 [Rx Last Taken Unknown] amlodipine 5 mg tablet 5 mg PO DAILY 10/26/22 [History Last Taken Unknown] folic acid 1 mg tablet 1 mg PO TID 11/14/22 [History Last Taken Unknown] lactobacillus combination no.4 3 billion cell capsule (Probiotic) 3,000 mmu cells PO DAILY 11/14/22 [History Last Taken Unknown] Allergy/AdvReac Type Severity Reaction Status Date / Time No Known Allergies Allergy Verified 11/14/22 02:36 Family History Father Myocardial infarction, Onset Age: 40 CAD (coronary artery disease) Cancer Diabetes Heart disease Hypertension Liver disease Mother Atrial fibrillation Cervical cancer Cancer Diabetes Hypertension Kidney disease Melanoma Daughter Cervical cancer Seizures Sister Thyroid disorder Surgical History Deficient knowledge of leg surgery H/O: hysterectomy History of appendectomy History of carotid endarterectomy History of carpal tunnel surgery Previous section Social History Smoking Status: Current every day smoker tobacco type: cigarettes alcohol intake: current details: occasional substance use type: does not use caffeine: No linda/bahai: None seatbelt use: always do you feel safe at home: Yes ROS ROS ED Constitutional Constitutional ED: Denies chills or fever(s) Eyes Eyes: Denies discharge from eye(s) ENT ENT ED: Denies discharge from eye(s), rhinorrhea or sore throat Cardiovascular Cardiovascular: Denies chest pain Respiratory/Chest Respiratory/Chest: Denies cough or dyspnea Gastrointestinal Gastrointestinal: Denies abdominal pain, nausea or vomiting Musculoskeletal Musculoskeletal: Denies back pain or extremity pain Integumentary Denies Abrasions or rash Neurologic Neurologic: Denies headache(s) or weakness Psychiatric Psychiatric: Reports anxiety; Denies suicidal ideation or suicidal thoughts Allergic/Immunologic Allergic/Immunologic ED: Denies lip swelling or urticaria EXAM Physical Exam Const Vital Signs: 11/14/22 02:37 11/14/22 04:01 Temperature 98.4 F Temperature Source Temporal Pulse Rate 88 Respiratory Rate 22 H 16 Blood Pressure 157/98 H Blood Pressure Mean 117 Pulse Ox 95 Oxygen Delivery Method Room Air Positive well nourished and well developed General Appearance ED: well developed Eyes EOMs intact bilaterally Chest Wall inspection of chest normal and palpation of chest normal Resp normal respiratory effort and clear to auscultation bilaterally Cardio regular rate and regular rhythm GI non-tender Palpation: soft Extremity normal to inspection Neuro oriented x3 Neuro Narrative: No focal neurologic deficits Psych Psych Narrative: Patient frustrated with the situation. She denies suicidal or homicidal ideation. She denies that any of tonight's actions were an attempt to hurt herself or anyone else. Attitude: agitated Skin no rashes or lesions noted MDM MDM MDM Narrative Medical decision making narrative: Labwork obtained to evaluate for leukocytosis, anemia, and electrolyte derangement. Lab Data Attestation: I reviewed the patient's lab results. Labs: Laboratory Results - last 24 hr 11/14/22 11/14/22 03:02 03:10 WBC 7.5 RBC 3.74 L Hgb 12.9 Hct 38.8 MCV 103.7 H MCH 34.5 H MCHC 33.2 RDW Std Deviation 46.4 H RDW Coeff of Frieda 12.2 Plt Count 267 MPV 10.1 Immature Gran % (Auto) 0.100 Neut % (Auto) 54.2 Lymph % (Auto) 33.4 Bent % (Auto) 9.6 Eos % (Auto) 2.3 Baso % (Auto) 0.4 Absolute Neuts (auto) 4.1 Absolute Lymphs (auto) 2.50 Nucleated RBC % 0 Sodium 136 Potassium 3.7 Chloride 104 Carbon Dioxide 24.0 Anion Gap 8 BUN 11 Creatinine 1.11 H Estim Creat Clear Calc 47.12 Est GFR (MDRD) Af Amer 65 Est GFR (MDRD) Non-Af 53 L BUN/Creatinine Ratio 9.9 L Glucose 102 Calcium 9.0 Urine Opiates Screen NEGATIVE Urine Methadone Screen NEGATIVE Ur Barbiturates Screen NEGATIVE Ur Phencyclidine Scrn NEGATIVE Ur Amphetamines Screen NEGATIVE MDMA (Ecstasy) Screen NEGATIVE U Benzodiazepines Scrn NEGATIVE Urine Cocaine Screen NEGATIVE U Cannabinoids Screen NEGATIVE Ur Drug Screen Comment Ethyl Alcohol 128.0 Treatment and Re-Evaluation :: CBC reveals normal white count at 7.5 and normal hemoglobin at 12.9. Chemistry studies are unremarkable. EtOH is elevated at 128. Urine tox screen is negative. Carboxyhemoglobin level is normal at 4.8. Patient was observed in the emergency room for about an hour and a half. She then got up and eloped from the emergency room. Nursing staff did follow her outside where she was ambulating normally and walking toward a local restaurant. Patient denied suicidal thoughts or attempts to me. [facility]'s office that brought her to the emergency room did not feel that she needed a pink slip. I do not feel patient needs to be kept against her wishes for any further testing. Discharge Plan Triage Chief Complaint: Mental Health ED Provider: Velma Deluca Dx/Rx/DC Orders Clinical Impression: Anxiety Prescriptions: No Action aspirin [Adult Low Dose Aspirin] 81 mg tablet,delayed release (DR/EC) 81 mg PO DAILY Qty: 30 6RF atorvastatin 40 mg tablet 40 mg PO DAILY Qty: 30 6RF amlodipine 5 mg tablet 5 mg PO DAILY albuterol sulfate [Ventolin HFA] 90 mcg/actuation HFA aerosol inhaler 2 puff INHALATION Q4H PRN PRN (Reason: Wheezing) nitroglycerin 0.4 mg Tablet, Sublingual 0.4 mg SUBLINGUAL Q5M PRN (Reason: Chest Pain) atenolol 50 mg tablet 50 mg PO DAILY famotidine 40 mg tablet 20 mg PO DAILY folic acid 1 mg tablet 1 mg PO TID Probiotic 3 billion cell capsule 3,000 mmu cells PO DAILY Rx Instructions: administer with a meal lisinopril 5 mg tablet 5 mg PO QDAY Qty: 90 3RF Primary Care Provider: Anival Post NP Referrals: Anival Post CLERICAL STOCK INSPECTOR, CLERICAL STOCK INSPECTOR-C [Primary Care Provider] - Disposition Disposition: Home, Self Care Discharge Date/Time: 11/14/22 04:26
[2022-11-14 03:12] LABS: Absolute Neutrophil Count 4.1 X10^3/uL (2.0-7.7); Basophil# 0.03 X10^3/uL; Basophil% 0.4 % (0-1); Eosinophil# 0.17 X10^3/uL; Eosinophils% 2.3 % (0-5); Hematocrit 38.8 % (37-47); Hemoglobin 12.9 g/dL (12.0-15.0); Lymphocyte % 33.4 % (19-41); Mean Corp Hgb Conc 33.2 g/dL (32-36); Mean Corpuscular Hgb 34.5 pg (27.0-32.0); Mean Corpuscular Volume 103.7 fL (81-99); Mean Platelet Vol. 10.1 fl (6.2-12.0); Monocyte# 0.72 X10^3/uL; Monocyte% 9.6 % (0-10); NRBC Flagged by Analyzer 0 % (0-5); Neutrophil # 4.06 X10^3/uL (2.7-7.7); Neutrophil % 54.2 % (47-70); Platelet Count 267 K/mm3 (150-450); RBC Distribution Width CV 12.2 % (11.6-14.6); RBC Distribution Width SD 46.4 fl (35.1-43.9); Red Blood Count 3.74 M/mm3 (4.2-5.4); White Blood Count 7.5 K/mm3 (4.4-11.0)
[2022-11-14 03:27] LABS: Anion Gap 8 (5-15); BUN 11 mg/dL (7-18); BUN/Creat Ratio 9.9 RATIO (10-20); Chloride 104 mmol/L (98-107); Creatinine, Serum 1.11 mg/dL (0.55-1.02); EST Glomerular Filtration Rate 53 mL/min (>60); Est Glom Filt Rate - Afr Amer 65 mL/min (>60); Estimated Creatinine Clearance 47.12 ml/min; Glucose 102 mg/dL (74-106); Potassium 3.7 mmol/L (3.5-5.1); Sodium Level 136 mmol/L (136-145)
[2022-11-14 03:29] LABS: Carboxyhemoglobin Order 4.8
[2022-11-14 03:33] LABS: Amphetamine Urine VISTA NEGATIVE (<1000 ng/mL); Barbiturate Urine VISTA NEGATIVE (< 200 ng/mL); Benzodiazepine Urine VISTA NEGATIVE (< 200 ng/mL); Cocaine Urine VISTA NEGATIVE (< 300 ng/mL); Ecstacy Urine VISTA NEGATIVE (< 500 ng/mL); Methadone Urine VISTA NEGATIVE (< 300 ng/mL); PCP Urine VISTA NEGATIVE (< 25 ng/mL); THC Urine VISTA NEGATIVE (< 50 ng/mL); Vista UDS pH Range 6
[2022-11-14 04:01] VITALS: RESP 16
--- NOTE | 2022-11-14 04:20 | ED.RN ---
patient noted walking out the room. patient asked several times if she needed help patient refused to answer. patient asked if she was leaving she said yes. patient witnessed walking out the door and the er ramp and across the parking lot without any issues. nursing staff attempted to talk to patient several times and patient refused to answer. Dr. Deluca made aware at this time
== END 2022-11-14 04:26 | disposition home or self-care (01) ==
PROVIDERS: Emergency Provider Emergency Medicine; PCP Nurse Practitioner Primary Care; Visit Provider Emergency Medicine
DX: F41.9 Anxiety disorder, unspecified (principal); J44.9 Chronic obstructive pulmonary disease, unspecified; E78.00 Pure hypercholesterolemia, unspecified; I10 Essential (primary) hypertension; F17.210 Nicotine dependence, cigarettes, uncomplicated; Z79.899 Other long term (current) drug therapy; Z79.82 Long term (current) use of aspirin; Z86.73 Personal history of transient ischemic attack (TIA), and cerebral infarction without residual deficits; Z90.710 Acquired absence of both cervix and uterus; Z90.49 Acquired absence of other specified parts of digestive tract
CPT/HCPCS: 80048; 80307; 82077; 85025; 99282

== ENCOUNTER 2023-01-15 16:30 | Outpatient (RCR) | payer MEDICAID, SELFPAY ==
--- NOTE | 2022-09-29 14:00 | HP.PTEVAL_ITS ---
Patient's Visit Information Visit Information Visit Information: ANA PAULA CEJA is a 57 year old F referred to Physical Therapy by Dr. Carlos Mehta MD with a diagnosis of CEREBRAL INFARCTION ,USPECIFIED ,ABNORMALITIES OF GAIT AND MOBLITY. Date of Evaluation: 09/29/22 Physical Therapist: Elier Infante, PT, Cert MDT, OCS Visit Plan Frequency: 2x /Week Duration: 6 Weeks Plan: PT INTERVENTIONS PROGRESSIVE GAIT TRAINING ,BALANCE TRAINING ,STRENGTHENING BLE( ESPEICIALLY LLE) ,ENDURANCE PROGRAM AND FUNCTIONAL STRENGTHENING Subjective Subjective: This 57 y/o female presents to physical therapy with CVA and gait abnormality. Patient had CVA last year Apr 05 2021 affecting left side with weakness. Patient had carotid surgery on 2021. Patient had 2 CAV and 4 TIA. Patient recently seen Neurologist and recommended PT. Patient reports with difficulty with walking without cane and limiting dragging left foot. Patient gets fatigues with extended walking and standing with SOB. Patient has limitations ADLS and housework task. Patient has no recent falls. Patient has no recent testing. Patient denies paresthesia/tingling. Patient has difficulty with stairs especially descending increases anxiety. [place] one steps Tub/shower with chair and grab bars. Patient goals to walk better. Patient has loop to monitor heart. VOCATION: Retired SOCIAL: Objective Objective: POSTURE: rounded shoulders head forward GAIT: ambulates with cane slow jo with cane 2 point gait( no device slow shuffle steps unsteady) STAIRS: one steps with rails NEURO: denies paresthesia/tingling, reflexes Achilles /patella 1/3 TONE: WNL MMT: ( peak force) quads 12,2,hamstrings 11.2,hip flexion 5.8 ,hip abduction 5.1,ankle 4/5 FLEXABILITY: hamstrings min tight Balance/Special Test Scores Functional Gait Assessment Score: 5 % Disability: 83.3400 CATSIB Score (Max score 120 seconds): 65 Lower Extremity Functional Score: 28 30 Second Chair Rise Test Seconds: 7 Goals Goal 1:: Patient to be I with HEP for balance and strength Goal Time Frame: 4-6 Weeks Goal 2:: Patient to ambulate with improved gait pattern without device Goal Time Frame: 4-6 Weeks Goal 3:: Patient to improve peak strength of right leg by 5-10 # [facility] to improve stairs Goal 4:: Patient improve CATSIB BY 5-10 points to improve function Goal Time Frame: 4-6 Weeks Goal 5:: Patient to improve Functional gait assessment by 5 points > to improve gait and balnce Goal Time Frame: 4-6 Weeks Goal 6:: Patient to improve LFES score by 5-10 points to improve gait and QOL Goal Time Frame: 4-6 Weeks Rehabilitation Potential Physical Therapy Diagnosis: This patient had CVA affecting left side with decrease gait ,balance and weakness impairs function and ADLS thus benefit from skilled PT Rehabilitation Potential: Good Anticipated Interventions Patient/Client Instruction: Educate patient on: Condition and Plan of Care For the Purpose of:: To decrease pain, To improve muscle performance and motor function, To improve ability to perform ADL's, To increase tolerance to activity/condition/position, To improve performance and independence with ADL's, To improve ability of physical actions for home/community/work/leisure, To improve gait and locomotor functions, To improve endurance, To improve balance and To improve tolerance to ADL's Therapeutic Exercise to Include: Strength training, Endurance training, Balance training, Gait and locomotor training and Active ROM For the Purpose of:: To improve muscle performance and motor function, To improve ability to perform ADL's, To increase tolerance to activity/condition/position, To improve ability of physical actions for home/community/work/leisure, To improve balance, To improve safety with gait, To improve self management and To improve tolerance to ADL's Text: Thank you for the opportunity to evaluate your patient. For Medicare and Medicare HMO plans, please review the plan of care and approve it. It will need to be FAXED BACK to us at [phone] for Medicare purposes. For Medicare only, by signing this I certify the plan of care. Please let me know if there are questions or concerns regarding this plan of care. Physician Signatur e: Date:
--- NOTE | 2022-12-29 13:47 | HP.PTREVAL_ITS ---
Re-Evaluation Intro: Dr. Carlos Mehta MD, It has been my pleasure to treat ANA PAULA CEJA over the last 20 visits for CEREBRAL INFARCTION ,USPECIFIED ,ABNORMALITIES OF GAIT AND MOBLITY. Please see the progress note below for an update on the physical therapy plan of care! Subjective Subjective: Doing better ,with walking . Patient reports with dizziness. Objective Objective/Function: rounded shoulders head forward GAIT: ambulates with cane slow jo with cane 2 point gai STAIRS: one steps with rails NEURO: denies paresthesia/tingling, reflexes Achilles /patella 1/3 TONE: WNL MMT: ( peak force) left quads 24,3,hamstrings 31.1,hip flexion 22.8 ,hip abduction 10.1,ankle 4/5 FLEXABILITY: hamstrings min tight Plan Plan Plan: Requesting 8 more session PT INTERVENTIONS AQUATIC THERAPYPROGRESSIVE GAIT TRAINING ,BALANCE TRAINING ,STRENGTHENING BLE (ESPEICIALLY LLE) ,ENDURANCE PROGRAM AND FUNCTIONAL STRENGTHENING Balance/Gait/Functional tests Balance/Special Test Scores Functional Gait Assessment Score: 17 % Disability: 43.3400 CATSIB Score (Max score 120 seconds): 95 Lower Extremity Functional Score: 28 30 Second Chair Rise Test Seconds: 7 Goals Goals Goal 1:: Patient to be I with HEP for balance and strength and Aquatic therapy( new goals) Goal Time Frame: 4-6 Weeks Goal Progress: Progressing Goal 2:: Patient to ambulate with improved gait pattern without device Goal Time Frame: 4-6 Weeks Goal Progress: Progressing Goal 3:: Patient to improve peak strength of right leg by 5-10 # strength to improve stairs( new goals) Goal 4:: Patient improve CATSIB BY 5-10 points to improve function Goal Time Frame: 4-6 Weeks Goal Progress: Progressing Goal 5:: Patient to improve Functional gait assessment by 5 points > to improve gait and balnce Goal Time Frame: 4-6 Weeks Goal Progress: Progressing Goal 6:: Patient to improve LFES score by 5-10 points to improve gait and QOL Goal Time Frame: 4-6 Weeks Goal Progress: Progressing Anticipated Interventions Anticipated Interventions Patient/Client Instruction: Educate patient on: Condition and Plan of Care For the Purpose of:: To decrease pain, To improve muscle performance and motor function, To improve ability to perform ADL's, To increase tolerance to activity/condition/position, To improve performance and independence with ADL's, To improve ability of physical actions for home/community/work/leisure, To improve gait and locomotor functions, To improve endurance, To improve balance and To improve tolerance to ADL's Therapeutic Exercise to Include: Strength training, Endurance training, Balance training, Gait and locomotor training, In an aquatic setting and Active ROM For the Purpose of:: To improve muscle performance and motor function, To improve ability to perform ADL's, To increase tolerance to activity/condition/position, To improve ability of physical actions for home/community/work/leisure, To improve balance, To improve safety with gait, To improve self management and To improve tolerance to ADL's Re-Evaluation Ending Re-evaluation ending: Please do not hesitate to contact me at [phone] by phone or Fax: if you have questions or concerns regarding this new plan of care! Sincerely, Elier Infante, PT, Cert MDT, OCS
== END 2023-01-15 19:00 | disposition home or self-care (01) ==
LOC: PT 16:30
PROVIDERS: PCP Nurse Practitioner Primary Care; Referring Provider Psychiatry & Neurology Neurology; Visit Provider Psychiatry & Neurology Neurology
DX: I63.9 Cerebral infarction, unspecified (principal); R26.9 Unspecified abnormalities of gait and mobility
CPT/HCPCS: 97110; 97113; 97162; 97530

== ENCOUNTER → 2023-03-23 | Outpatient (CLI) | payer MEDICAID, SELFPAY ==
--- NOTE | 2023-03-23 13:54 | CDU_ITS ---
Reason For Study: Follow-up carotid stenosis Rt. Velocities/BP Lt. Velocities/BP Prox CCA 57/21.1 cm/sec. Prox CCA 76.2/25.6 cm/sec. Mid CCA 62.6/23 cm/sec. Mid CCA 85/32.2 cm/sec. Dist CCA 48.5/21.1 cm/sec. Dist CCA 69.6/27.8 cm/sec. Prox ICA 64.5/26.7 cm/sec. Prox ICA 77.3/25.6 cm/sec. Mid ICA 87.2/38.1 cm/sec. Mid ICA 80.6/27.8 cm/sec. Dist ICA 92.5/36 cm/sec. Dist ICA 90.5/37.7 cm/sec. Rt. ICA/CCA = 1.62. Lt. ICA/CCA = 1.19. Rt. Vert. 23/6.9 cm/sec. Prox ECA 106.9/27.8 cm/sec. Lt. Vert. 61.9/22.3 cm/sec. Right Extracranial There is homogeneous, smooth atherosclerotic plaque noted in the right common carotid artery. There is heterogeneous, irregular atherosclerotic plaque noted in the right internal carotid artery. The right external carotid artery is occluded. Antegrade flow is noted in the right vertebral artery. Left Extracranial There is intimal thickening but no significant atherosclerotic plaque noted in the left common carotid artery. There is homogeneous, smooth atherosclerotic plaque noted in the left internal carotid artery. There is homogeneous, smooth atherosclerotic plaque noted in the left external carotid artery. Antegrade flow is noted in the left vertebral artery. Procedure Carotid Duplex [id number]. This is a Carotid Duplex examination using B-mode, color flow and specral Doppler. Exam performed in department. VL/Carotid Duplex Ultrasound Interpretation Summary Mild (<50%) stenosis right extracranial internal carotid. Mild (<50%) stenosis left extracranial internal carotid. Flow within the vertebral arteries is antegrade bilaterally. Ordering Physician: Carlos Mehta Referring Physician: Anival Post Performed By: Shanell Centeno RVT
--- OUTSIDE RECORDS SUMMARY | 2023-03-23 14:24 | XMS RPT_ITS | CCD ---
Author Name Unknown Address [address] [place] [address] Organization [facility] Care Team Providers Care Planner Chief Name Role Phone MEKHI WU Primary Care Physician FORD ALEX Primary Care Physician ([phone] Beronica Haley MD Primary Care Provider Beronica Haley MD Primary Care Provider Beronica Haley MD Primary Care Provider Beronica Haley MD Primary Care Provider AUGOSTINI, JAYLENE Referring Unavailable BERONICA HALEY Primary Care Unavailable AUGOSTINI, JAYLENE Referring Unavailable BERONICA HALEY Primary Care Unavailable AUGOSTINI, JAYLENE Referring Unavailable ELDERBROAUBRIE, BERONICA Marcus Primary Care Unavailable AUGOSTINI, JAYLENE Referring Unavailable ELDERBROCK, BERONICA Marcus Primary Care Unavailable AUGOSTINI, JAYLENE Referring Unavailable ELDERBROCK, BERONICA Marcus Primary Care Unavailable AUGOSTINI, JAYLENE Referring Unavailable ELDERBROCK, BERONICA Angeline Primary Care Unavailable ELDERBROCK, BERONICA Angeline Primary Care Unavailable AUGOSTINI, JAYLENE Referring Unavailable ELDERBROCK, BERONICA Angeline Primary Care Unavailable AUGOSTINI, JAYLENE Referring Unavailable ELDERBROAUBRIE, BERONICA Marcus Primary Care Unavailable AUGOSTINI, JAYLENE Referring Unavailable ELDERBROAUBRIE, BERONICA D Primary Care Unavailable AUGOSTINI, JAYLENE Referring Unavailable AUGOSTINI, JAYLENE Referring Unavailable ELDERBROCK, BERONICA D Primary Care Unavailable AUGOSTINI, JAYLENE Referring Unavailable ELDERBROAUBRIE, BERONICA D Primary Care Unavailable SAMIR NULL, CARRIE Admitting Unavailable LOREN NULL, MIN Attending Unavailable FORD ALEX Primary Care Unavailabl e JANNA DO, CHINO Consulting Unavailable BRENDA NULL, GOLD Consulting Unavailable [employer], FORD Primary Care Unavailabl e [employer], FORD Attending Unavailabl e [employer], FORD Primary Care Unavailabl e [employer], FORD Attending Unavailabl e [employer], FORD Attending Unavailabl e [employer], FORD Primary Care Unavailabl e [employer], FORD Attending Unavailabl e [employer], FORD Primary Care Unavailabl e [employer], FORD Attending Unavailabl e [employer], FORD Primary Care Unavailabl hilaria RIOS MD, CHRISTO A Attending Unavailable [employer], FROD Primary Care Unavailabl e [employer], FORD Primary Care Unavailabl hilaria RIOS MD, CHRISTO A Attending Unavailable GABRIEL NULL, CHRISTO Arlene Attending Unavailable [facility], FORD Primary Care Unavailabl hilaria RIOS MD, CHRISTO A Attending Unavailable [facility], FORD Primary Care Unavailabl e Allergies Allergy Classification Reported Allergen(s) Allergy Type Date of Onset Reaction(s) Facility (8 sources) Lactose Drug Allergy Upset stomach (finding) [facility] Work Phone: Medications Current Medications Medication Drug Class(es) Dates Sig (Normalized) Sig (Original) acetaminophen 500 mg oral tablet (5 sources) Start: 04-13-2021 acetaminophen 500 mg oral tablet Dose : 1,000 mg = 2 tab(s), Oral, TID, PRN pain or fever, 0 Refill(s) Start Date: 04/13/21 Status: Ordered Albuterol (20 sources) beta2-Adrenergic Agonist Start: 04-12-2021 take 1 puff(s) by inhalation four times daily as needed for wheezing Ventolin HFA MDI (90 mcg/inh) inhalation aerosol 1 puff(s), Inhalation, QID, PRN as needed for wheezing, # 18 gram(s), 0 Refill(s) Start Date: 04/12/21 Status: Ordered Completed/Discontinued Medications Medication Drug Class(es) Dates Sig (Normalized) Sig (Original) ALPRAZolam 0.5 mg oral tablet (2 sources) Benzodiazepine Start: 11-01-2018 take 1 tablet by mouth every eight hours as needed for anxiety and anxiety ALPRAZolam (XANAX) 0.5 mg tablet Indications: Anxiety Take 1 tablet by mouth three times daily as needed for Anxiety for up to 10 days. 30 tablet 1 11/01/2018 Active Problems Problem Classification Problem Date Documented Date Episodic/Chronic Abdominal pain (3 sources) Epigastric pain; Translations: [Epigastric pain] 12-22-2009 Episodic Acute cerebrovascular disease (17 sources) Cerebral infarction; Translations: [Cerebrovascular accident] Onset: 04-06-2021 04-13-2021 Chronic Anxiety disorders (3 sources) Anxiety; Translations: [Anxiety disorder, unspecified] Onset: 02-16-2010 02-16-2010 Chronic Asthma (4 sources) Asthma; Translations: [Unspecified asthma, uncomplicated] Onset: 10-31-2017 Chronic Essential hypertension (15 sources) Hypertensive disorder; Translations: [Essential hypertension] Onset: 05-21-2012 04-13-2021 Chronic Genitourinary symptoms and ill-defined conditions (5 sources) Disorder of the urinary system 08-17-2022 Episodic Heart valve disorders (3 sources) Mitral valve prolapse; Translations: [Nonrheumatic mitral (valve) prolapse] Onset: 10-08-2009 10-08-2009 Chronic Late effects of cerebrovascular disease (1 source) Hemiplegia of nondominant side as late effect of cerebrovascular disease; Translations: [Hemiplegia and hemiparesis following cerebral infarction affecting left non-dominant side] Chronic Menstrual disorders (3 sources) Menorrhagia; Translations: [Excessive and frequent menstruation with regular cycle] Onset: 05-02-2012 05-02-2012 Chronic Occlusion or stenosis of precerebral arteries (18 sources) Carotid artery stenosis; Translations: [Carotid artery occlusion] Onset: 04-05-2021 04-13-2021 Chronic Open wounds of extremities (5 sources) Avulsion of toenail 07-14-2022 Episodic Other circulatory disease (5 sources) Disorder of carotid artery 02-10-2022 Chronic Other circulatory disease (5 sources) History of cerebrovascular accident 02-10-2022 Episodic Other circulatory disease (6 sources) History of transient ischemic attack; Translations: [Personal history of transient ischemic attack (TIA), and cerebral infarction without residual deficits] Onset: 10-04-2022 Episodic Other hematologic conditions (4 sources) Macrocytosis 10-04-2022 Chronic Other hematologic conditions (1 source) Disorder of hematopoietic structure; Translations: [Other specified diseases of blood and blood-forming organs] Onset: 11-09-2022 Chronic Other nervous system disorders (5 sources) Peripheral nerve disease 08-17-2022 Chronic Other screening for suspected conditions (not mental disorders or infectious disease) (2 sources) Patient encounter status; Translations: [Encounter for screening for lipoid disorders] Episodic Residual codes; unclassified (5 sources) Family history of malignant neoplasm of ovary; Translations: [Family history of malignant neoplasm of ovary] Onset: 11-09-2022 10-04-2022 Episodic Residual codes; unclassified (1 source) Tobacco user; Translations: [Tobacco use] Onset: 11-09-2022 Episodic Screening and history of mental health and substance abuse codes (4 sources) Tobacco use and exposure - finding 10-04-2022 Chronic Unclassified (5 sources) Cancer cervix screening status 02-10-2022 Unclassified (15 sources) Patient encounter status 02-10-2022 Results Test Name Value Interpretation Reference Range Facil ity Vital Signs Date Time Vital Sign Value Performing Clinician Faci lity 11-20-2022 10:51-0400 Blood Pressure Cuff Size CARRIE DAWSON MD [facility] 11-20-2022 10:51-0400 Blood Pressure Location CARRIE DAWSON MD [facility] 11-20-2022 10:51-0400 Blood Pressure Method CARRIE DAWSON MD [facility] 11-20-2022 10:51-0400 Body temperature 98.06 [degF] CARRIE DAWSON MD [facility] 11-20-2022 10:51-0400 Diastolic Blood Pressure Non-Invasive 73 1 CARRIE DAWSON MD [facility] 11-20-2022 10:51-0400 Heart rate 62 /min CARRIE DAWSON MD [facility] 11-20-2022 10:51-0400 Reason For Taking VItal Signs CARRIE DAWSON MD [facility] 11-20-2022 10:51-0400 Respiratory rate 18 /min CARRIE DAWSON MD [facility] 11-20-2022 10:51-0400 Systolic Blood Pressure Non-Invasive 157 1 CARRIE DAWSON MD [facility] 11-20-2022 06:31-0400 Blood Pressure Cuff Size CARRIE DAWSON MD [address] [place] [address] 11-20-2022 06:31-0400 Blood Pressure Location CARRIE DAWSON MD [address] [place] [address] 11-20-2022 06:31-0400 Blood Pressure Method CARRIE DAWSON MD [address] [place] [address] 11-20-2022 06:31-0400 Body temperature 97.88 [degF] CARRIE DAWSON MD [address] [place] [address] 11-20-2022 06:31-0400 Diastolic Blood Pressure Non-Invasive 81 1 CARRIE DAWSON MD [address] [place] [address] 11-20-2022 06:31-0400 Heart rate 61 /min CARRIE DAWSON MD [address] [place] [address] 11-20-2022 06:31-0400 Systolic Blood Pressure Non-Invasive 156 1 CARRIE DAWSON MD [address] [place] [address] 11-20-2022 03:09-0400 Body temperature 97.7 [degF] CARRIE DAWSON MD [address] [place] [address] 11-20-2022 03:09-0400 Diastolic Blood Pressure Non-Invasive 85 1 CARRIE DAWSON MD [address] [place] [address] 11-20-2022 03:09-0400 Heart rate 64 /min CARRIE DAWSON MD [facility] 11-20-2022 03:09-0400 Reason For Taking VItal Signs CARRIE DAWSON MD [address] [place] [address] 11-20-2022 03:09-0400 Respiratory rate 18 /min CARRIE DAWSON MD [address] [place] [address] 11-20-2022 03:09-0400 Systolic Blood Pressure Non-Invasive 163 1 CARRIE DAWSON MD [address] [place] [address] 11-19-2022 23:09-0400 Blood Pressure Cuff Size CARRIE DAWSON MD [address] 11-19-2022 23:09-0400 Blood Pressure Location CARRIE DAWSON MD [address] 11-19-2022 23:09-0400 Blood Pressure Method CARRIE DAWSON MD [address] 11-19-2022 23:09-0400 Reason For Taking VItal Signs CARRIE DAWSON MD [address] [place] [address] 11-19-2022 23:09-0400 Respiratory rate 18 /min CARRIE DAWSON MD [address] 11-19-2022 11:23-0400 Heart rate 73 /min CARRIE DAWSON MD [address] 11-19-2022 02:55-0400 Heart rate 56 /min CARRIE DAWSON MD [address] [place] [address] 11-18-2022 23:48-0400 Heart rate 55 /min CARRIE DAWSON MD [address] [place] [address] 11-18-2022 21:01-0400 Body height 162.6 cm CARRIE DAWSON MD [address] [place] [address] 11-18-2022 21:01-0400 Body weight 94.9 kg CARRIE DAWSON MD [address] [place] [address] 11-18-2022 21:01-0400 Body weight 35.89 kg/m2 CARRIE DAWSON MD [address] [place] [address] 11-18-2022 15:06-0400 Body height 162.6 cm CARRIE DAWSON MD [facility] 11-18-2022 15:06-0400 Body weight 94.9 kg CARRIE DAWSON MD [facility] 05-13-2021 11:58-0500 Heart rate 46 /min MARTHA MALCOLM MD [facility] 05-13-2021 11:58-0500 Reason For Taking VItal Signs MARTHA MALCOLM MD [facility] 05-13-2021 11:04-0500 Body temperature 97.88 [degF] MARTHA MALCOLM MD [facility] 05-13-2021 11:04-0500 Diastolic Blood Pressure NBP 66 1 MARTHA MALCOLM MD [facility] 05-13-2021 11:04-0500 Heart rate 49 /min MARTHA MALCOLM MD [facility] 05-13-2021 11:04-0500 Mean blood pressure 80 mm[Hg] MARTHA MALCOLM MD [facility] 05-13-2021 11:04-0500 Reason For Taking VItal Signs MARTHA MALCOLM MD [facility] 05-13-2021 11:04-0500 Respiratory rate 16 /min MARTHA MALCOLM MD [facility] 05-13-2021 11:04-0500 Systolic Blood Pressure NBP 111 1 MARTHA MALCOLM MD [facility] 05-13-2021 10:35-0500 Diastolic Blood Pressure NBP 63 1 MARTHA MALCOLM MD [facility] 05-13-2021 10:35-0500 Heart rate 52 /min MARTHA MALCOLM MD [facility] 05-13-2021 10:35-0500 Mean blood pressure 77 mm[Hg] MARTHA MALCOLM MD [facility] 05-13-2021 10:35-0500 Systolic Blood Pressure NBP 110 1 MARTHA MALCOLM MD [facility] 05-13-2021 10:31-0500 Diastolic Blood Pressure NBP 64 1 MARTHA MALCOLM MD [facility] 05-13-2021 10:31-0500 Mean blood pressure 81 mm[Hg] MARTHA MALCOLM MD [facility] 05-13-2021 10:31-0500 Systolic Blood Pressure NBP 117 1 MARTHA MALCOLM MD [facility] 05-13-2021 08:32-0500 Body temperature 98.06 [degF] MARTHA MALCOLM MD [facility] 05-13-2021 08:32-0500 Reason For Taking VItal Signs MARTHA MALCOLM MD [facility] 05-13-2021 08:32-0500 Respiratory rate 18 /min MARTHA MALCOLM MD [facility] 05-13-2021 07:03-0500 Heart rate 61 /min MARTHA MALCOLM MD [facility] 05-13-2021 07:03-0500 Respiratory rate 18 /min MARTHA MALCOLM MD [facility] 05-13-2021 03:38-0500 Body temperature 97.88 [degF] MARTHA MALCOLM MD [facility] 05-12-2021 22:00-0500 Diastolic blood pressure 63 mm[Hg] MARTHA MALCOLM MD [facility] 05-12-2021 22:00-0500 Mean blood pressure 74 mm[Hg] MARTHA MALCOLM MD [facility] 05-12-2021 22:00-0500 Systolic blood pressure 91 mm[Hg] MARTHA MALCOLM MD [facility] 05-12-2021 19:00-0500 Diastolic blood pressure 46 mm[Hg] MARTHA MALCOLM MD [facility] 05-12-2021 19:00-0500 Mean blood pressure 64 mm[Hg] MARTHA MALCOLM MD [facility] 05-12-2021 19:00-0500 Systolic blood pressure 98 mm[Hg] MARTHA MALCOLM MD [facility] 05-12-2021 18:58-0500 Heart rate 45 /min MARTHA MALCOLM MD [facility] 05-12-2021 18:27-0500 Diastolic blood pressure 48 mm[Hg] MARTHA MALCOLM MD [facility] 05-12-2021 18:27-0500 Mean blood pressure 65 mm[Hg] MARTHA MALCOLM MD [facility] 05-12-2021 18:27-0500 Systolic blood pressure 96 mm[Hg] MARTHA MALCOLM MD [facility] 05-12-2021 10:10-0500 Body height 162.6 cm MARTHA MALCOLM MD [facility] 05-12-2021 10:10-0500 Body weight 83.2 kg MARTHA MALCOLM MD [facility] 05-12-2021 10:10-0500 Body weight 31.47 kg/m2 MARTHA MALCOLM MD [facility] 05-12-2021 10:10-0500 diastolic 86 mm[Hg] MARTHA MALCOLM MD [facility] 05-12-2021 10:10-0500 Heart rate 85 /min MARTHA MALCOLM MD [facility] 05-12-2021 10:10-0500 systolic 149 mm[Hg] MARTHA MALCOLM MD [facility] 04-30-2021 11:00-0500 Body temperature 98.24 [degF] JOSÉ LUNA MD [facility] 04-30-2021 11:00-0500 Diastolic blood pressure 81 mm[Hg] JOSÉ LUNA MD [facility] 04-30-2021 11:00-0500 Heart rate 55 /min JOSÉ LUNA MD [facility] 04-30-2021 11:00-0500 Respiratory rate 16 /min JOSÉ LUNA MD [facility] 04-30-2021 11:00-0500 Systolic blood pressure 141 mm[Hg] JOSÉ LUNA MD [facility] 04-30-2021 08:50-0500 Diastolic blood pressure 89 mm[Hg] JOSÉ LUNA MD [facility] 04-30-2021 08:50-0500 Heart rate 66 /min JOSÉ LUNA MD [facility] 04-30-2021 08:50-0500 Systolic blood pressure 137 mm[Hg] JOSÉ LUNA MD [facility] 04-30-2021 07:16-0500 Heart rate 62 /min JOSÉ LUNA MD [facility] 04-30-2021 07:08-0500 Body temperature 98.6 [degF] JOSÉ LUNA MD [facility] 04-30-2021 07:08-0500 Diastolic blood pressure 90 mm[Hg] JOSÉ LUNA MD [facility] 04-30-2021 07:08-0500 Heart rate 62 /min JOSÉ LUNA MD [facility] 04-30-2021 07:08-0500 Respiratory rate 18 /min JOSÉ LUNA MD [facility] 04-30-2021 07:08-0500 Systolic blood pressure 128 mm[Hg] JOSÉ LUNA MD [facility] 04-30-2021 03:51-0500 Body temperature 97.52 [degF] JOSÉ LUNA MD [facility] 04-30-2021 03:51-0500 Heart rate 62 /min JOSÉ LUNA MD [facility] 04-30-2021 03:51-0500 Respiratory rate 18 /min JOSÉ LUNA MD [facility] 04-30-2021 01:16-0500 Reason For Taking VItal Signs JOSÉ LUNA MD [facility] 04-29-2021 20:48-0500 Body height 162.6 cm JOSÉ LUNA MD [facility] 04-29-2021 20:48-0500 Body weight 84.9 kg JOSÉ LUNA MD [facility] 04-29-2021 20:48-0500 Body weight 32.11 kg/m2 JOSÉ LUNA MD [facility] 04-29-2021 20:47-0500 Reason For Taking VItal Signs JOSÉ LUNA MD [facility] 04-29-2021 18:17-0500 Diastolic blood pressure 88 mm[Hg] MYNOR FROMMELT DO [facility] 04-29-2021 18:17-0500 Heart rate 76 /min MYNOR FROMMELT DO [facility] 04-29-2021 18:17-0500 Respiratory rate 18 /min MYNOR FROMMELT DO [facility] 04-29-2021 18:17-0500 Systolic blood pressure 156 mm[Hg] MYNOR FROMMELT DO [facility] 04-29-2021 16:46-0500 Diastolic blood pressure 99 mm[Hg] MYNOR FROMMELT DO [facility] 04-29-2021 16:46-0500 Heart rate 74 /min MYNOR FROMMELT DO [facility] 04-29-2021 16:46-0500 Respiratory rate 18 /min MYNOR FROMMELT DO [facility] 04-29-2021 16:46-0500 Systolic blood pressure 164 mm[Hg] MYNOR FROMMELT DO [facility] 04-29-2021 15:07-0500 Body temperature 98.6 [degF] MYNOR CONNORT DO [facility] 04-29-2021 15:07-0500 Body weight 86.2 kg MYNOR CONNORT DO [facility] 04-29-2021 15:07-0500 Diastolic blood pressure 83 mm[Hg] MYNOR CONNORT DO [facility] 04-29-2021 15:07-0500 Heart rate 78 /min MYNOR CONNORT DO [facility] 04-29-2021 15:07-0500 Respiratory rate 16 /min MYNOR CONNORT DO [facility] 04-29-2021 15:07-0500 Systolic blood pressure 161 mm[Hg] MYNOR CONNROT DO [facility] 04-12-2021 20:16-0500 Diastolic blood pressure 76 mm[Hg] DR URIAH GARCIA DO [facility] 04-12-2021 20:16-0500 Heart rate 67 /min DR URIAH GARCIA DO [facility] 04-12-2021 20:16-0500 Respiratory rate 16 /min DR URIAH GARCIA DO [facility] 04-12-2021 20:16-0500 Systolic blood pressure 135 mm[Hg] DR URIAH GARCIA DO [facility] 04-12-2021 20:03-0500 Diastolic blood pressure 76 mm[Hg] DR URIAH GARCIA DO [facility] 04-12-2021 20:03-0500 Heart rate 72 /min DR URIAH GARCIA DO [facility] 04-12-2021 20:03-0500 Respiratory rate 16 /min DR URIAH GARCIA DO [facility] 04-12-2021 20:03-0500 Systolic blood pressure 135 mm[Hg] DR URIAH GARCIA DO [facility] 04-12-2021 19:32-0500 Diastolic blood pressure 118 mm[Hg] DR URIAH GARCIA DO [facility] 04-12-2021 19:32-0500 Heart rate 56 /min DR URIAH GARCIA DO [facility] 04-12-2021 19:32-0500 Respiratory rate 16 /min DR URIAH GARCIA DO [facility] 04-12-2021 19:32-0500 Systolic blood pressure 138 mm[Hg] DR URIAH GARCIA DO [facility] 04-12-2021 19:15-0500 Mean blood pressure 113 mm[Hg] DR URIAH GARCIA DO [facility] 04-12-2021 19:00-0500 Mean blood pressure 117 mm[Hg] DR URIAH GARCIA DO [facility] 04-12-2021 18:15-0500 Mean blood pressure 128 mm[Hg] DR URIAH GARCIA DO [facility] 04-12-2021 14:15-0500 Body temperature 98.42 [degF] DR URIAH GARCIA DO [facility] 04-12-2021 14:15-0500 Body weight 87.[address] URIAH GARCIA DO [facility] Encounters Encounter Date Encounter Type Care Provider Facility Start: 03-14-2023 ambulatory FORD [facility] [employer] [facility] [facility] Fa cility:[facility] Start: 02-23-2023 End: 02-24-2023 ambulatory FORD [employer] Facility:[facility] Start: 12-08-2022 End: 12-09-2022 ambulatory FORD [employer] Facility:[facility] Start: 12-08-2022 End: 12-08-2022 Patient encounter procedure OFRD [employer] [facility] Start: 12-07-2022 End: 12-08-2022 ambulatory FORD [employer] Facility:A Start: 11-18-2022 End: 11-20-2022 Evaluation and management of inpatient CARRIE DAWSON MD Facility:A Start: 11-18-2022 End: 11-20-2022 Evaluation and management of inpatient CARRIE DAWSON MD [facility] Start: 11-09-2022 End: 11-10-2022 ambulatory CHRISTO RIOS MD Facility:A Start: 11-09-2022 End: 11-09-2022 Patient encounter procedure CHRISTO RIOS MD [facility] Start: 11-02-2022 End: 11-03-2022 ambulatory CHRISTO RIOS MD Facility:A Start: 10-04-2022 End: 10-05-2022 ambulatory CHRISTO RIOS MD Facility:A Start: 10-04-2022 End: 10-04-2022 Patient encounter procedure CHRISTO RIOS MD [facility] Start: 09-30-2022 ambulatory JAYLENE AUGOSTINI Facilit y:[facility] Start: 09-30-2022 End: 09-30-2022 Subsequent hospital visit by physician [facility] Work Phone: [facility] Start: 08-31-2022 ambulatory JAYLENE AUGOSTINI Facilit y:[facility] Start: 08-25-2022 End: 08-26-2022 ambulatory FORD BALDIVINE [employer] Facility:B Start: 08-17-2022 End: 08-18-2022 ambulatory FORD BALDIVINE [employer] Facility:[facility] Start: 08-17-2022 End: 08-17-2022 Patient encounter procedure FORD BENJAMIN [employer] Start: 08-01-2022 ambulatory JAYLENE AUGOSTINI Facilit y:[facility] Start: 07-02-2022 ambulatory JAYLENE AUGOSTINI Facilit y:[facility] Start: 07-02-2022 End: 07-02-2022 Subsequent hospital visit by physician [facility] Work Phone: [facility] Start: 06-02-2022 ambulatory JAYLENE AUGOSTINI Facilit y:[facility] Start: 05-03-2022 ambulatory JAYLENE AUGOSTINI Facilit y:[facility] Start: 05-03-2022 End: 05-03-2022 Subsequent hospital visit by physician [facility] Work Phone: [facility] Start: 04-03-2022 ambulatory JAYLENE FLORES Facilit y:[facility] Start: 03-04-2022 End: 03-04-2022 Subsequent hospital visit by physician [facility] Work Phone: [facility] Procedures Date Procedure Procedure Detail Performing Clinician Start: 09-30-2022 DEVICE EVALUATION Other Other Start: 03-04-2022 DEVICE EVALUATION Other Other Start: 02-02-2022 DEVICE EVALUATION Other Other Start: 12-04-2021 DEVICE EVALUATION Other Other Start: 11-04-2021 DEVICE EVALUATION Other Other Start: 10-05-2021 DEVICE EVALUATION Other Other Start: 09-05-2021 DEVICE EVALUATION Other Other Start: 07-07-2021 DEVICE EVALUATION Other Other Start: 06-07-2021 DEVICE EVALUATION Other Other Start: 05-12-2021 Carotid endarterectomy MARTHA MALCOLM MD Start: 04-06-2021 Lipid 1996 panel - S renata or Plasma [facility] Work Phone: Start: 11-01-2018 Adult depression scr eening assessment Murali Brown [employer] Work Phone: Start: 05-06-2018 Mammography Murali bentley [employer] Work Phone: Start: 03-19-1972 Structure of left lo wer leg (body structure) MARTHA MALCOLM MD Plan of Treatment Date Care Activity Detail Author Start: 04-06-2026 Fasting lipid profile LIPID SCREENIN [facility] Start: 04-06-2026 Lipid panel LIPID SCREENING [facility] Start: 11-17-2022 Influenza vaccination [facility] Start: 03-07-2022 LIPID SCREEN LIPID SCREEN [facility] Start: 11-17-2021 Influenza vaccination [facility] Start: 11-01-2021 DIABETES SCREEN DIABETES SCREEN [facility] Start: 08-31-2021 End: 08-31-2021 Patient encounter procedure 08/31/2021 Office Visit Neurology Abimael Jett, Abhijit Araiza MD [address] [place] [address] [facility] Start: 07-11-2021 End: 09-10-2021 Comprehensive metabolic 2000 panel - Serum or Plasma COMP METABOLIC PANEL Lab Routine Essential hypertension, benign Expected: 07/11/2021, Expires: 09/10/2021 [facility] Work Phone: Immunizations Immunization Date Immunization Notes Care Provider Fa cilisolitario 01-22-2018 influenza virus vacc ine, unspecified formulation DR URIAH GARCIA DO [facility] 02-10-2017 influenza virus vacc ine, unspecified formulation DR URIAH GARCIA DO [facility] 12-31-2012 influenza virus vacc ine, unspecified formulation Murali Declan [employer] Work Phone: [facility] Work Phone: 01-09-2011 influenza virus vacc ine, unspecified formulation Murali Declan [employer] Work Phone: [facility] 08-27-2009 tetanus toxoid, redu carie diphtheria toxoid, and acellular pertussis vaccine, adsorbed Murali Declan [employer] Work Phone: [facility] Work Phone: 12-17-2008 pneumococcal polysaccharide vaccine, 23 valent Murali Declan [employer] Work Phone: [facility] Payers Date Payer Category Payer Medicaid [id number] 2021 Medicaid [id number] 2021 Medicaid [id number] 2016 Medicaid [facility] MEDICAID UHC [facility] MEDICAID [id number] 2016-Present [phone] [address] [place] [address] Medicaid [id number] 1963 Unknown [id number] 2.16.840.1.785904.3.579.2.594 1963 Unknown [id number] 2.16.840.1.661931.3.579.2.594 1963 Unknown [id number] 2.16.840.1.582888.3.579.2.594 1963 Unknown [id number] 2.16.840.1.750615.3.579.2.594 1963 Unknown [id number] 2.16.840.1.869091.3.579.2.594 1963 Unknown [id number] 2.16.840.1.412724.3.579.2.594 1963 Unknown [id number] 2.16.840.1.230376.3.579.2.594 1963 Unknown [id number] 2.16.840.1.275499.3.579.2.594 1963 Unknown [id number] 2.16.840.1.552612.3.579.2.594 1963 Unknown [id number] 2.16.840.1.019688.3.579.2.594 1963 Unknown [id number] 2.16.840.1.785534.3.579.2.594 1963 Unknown [id number] 2.16.840.1.281060.3.579.2.594 1963 Unknown [id number] 2.16.840.1.022962.3.579.2.627 1963 Unknown [id number] 2.16.840.1.204520.3.579.2.627 1963 Unknown [id number] 2.16.840.1.673085.3.579.2.627 1963 Unknown [id number] 2.16.840.1.469634.3.579.2.627 1963 Unknown [id number] 2.16.840.1.506356.3.579.2.627 1963 Unknown [id number] 2.16.840.1.647997.3.579.2.627 1963 Unknown [id number] 2.16.840.1.623694.3.579.2.627 1963 Unknown [id number] 2.16.840.1.220202.3.579.2.627 1963 Unknown [id number] 2.16.840.1.273539.3.579.2.627 1963 Unknown [id number] 2.16.840.1.362785.3.579.2.627 Social History Date Type Detail Facility Start: 04-12-2021 Light tobacco smoker (finding) [facility] Assigned At [facility] Start: 05-12-2021 Heavy tobacco smoker (finding) [facility] Start: 04-06-2021 [facility] Work Phone: History of tobacco use Cigarette Smoker [facility] Work Phone: Start: 12-30-2019 Alcohol intake Current drinke r of alcohol (finding) [facility] Start: 12-30-2019 End: 04-10-2021 Alcohol intake [facility] Start: 1965 Sex Assigned At Not on file [facility] Start: 04-06-2021 Tobacco use and exposure Smokeless tobacco non-user [facility] Start: 03-09-2021 End: 09-12-2021 Exposure to SARS-CoV-2 (event) Unable to assess [facility] Start: 04-10-2021 Tobacco use panel [facility] Medical Equipment Procedure Code Equipment Code Equipment Origin al Text Equipment Identifier Dates System Surgery Tech Insertable Reveal Linq - [id number] Start: 04-08-2021 Functional Status Date Assessment Result Facility 11-20-2022 Functional Status Lunch Percent 75 [facility] 11-20-2022 Functional Status Room check performed [facility] 11-20-2022 Functional Status [facility] 11-20-2022 Functional Status [facility] 11-19-2022 Functional Status Hospital bed [facility] 11-19-2022 Functional Status bilateral knee [place] lied/on [facility] 11-19-2022 Functional Status [facility] 11-19-2022 Functional Status [facility] 11-19-2022 Functional Status 80 [facility] 11-19-2022 Functional Status Pt was going t o outpatient PT at [facility] in [place] 2x/week. Pt also driving there as he also working with outpatient PT on same days/times as her (11/19/22) [facility] 11-18-2022 Functional Status One assist [facility] Mental Status Date Assessment Result Facility 11-20-2022 Mental Status Oriented x 4 [facility] 11-20-2022 Mental Status [facility] 11-19-2022 Mental Status [facility] 11-19-2022 Mental Status [facility] Clinical Notes 12-23-2009 to 11-20-2022 Note Date & Type Note Facility 11-20-2022 Hospital Discharg e instructions Patient Education 11/20/2022 13:35:27 Transient Ischemic Attack, Izlv-dg-Gyth Transient Ischemic Attack A transient ischemic attack (TIA) is a warning stroke that causes stroke-like symptoms that go away quickly. A TIA does not cause lasting damage to the brain. But having a TIA is a sign that you may be at risk for a stroke. Lifestyle changes and medical treatments can help prevent a stroke. It is important to know the symptoms of a TIA and what to do. Get help right away, even if your symptoms go away. The symptoms of a TIA are the same as those of a stroke. They can happen fast, and they usually go away within minutes or hours. They can include: Weakness or loss of feeling in your face, arm, or leg. This often happens on one side of your body. Trouble walking. Trouble moving your arms or legs. Trouble talking or understanding what people are saying. Trouble seeing. Seeing two of one object (double vision). Feeling dizzy. Feeling confused. Loss of balance or coordination. Feeling sick to your stomach (nauseous) and throwing up (vomiting). A very bad headache for no reason. What increases the risk? Certain things may make you more likely to have a TIA. Some of these are things that you can change, such as: Being very overweight (obese). Using products that contain nicotine or tobacco, such as cigarettes and e-cigarettes. Taking control pills. Not being active. Drinking too much alcohol. Using drugs. Other risk factors include: Having an irregular heartbeat (atrial fibrillation). Being or . Having had blood clots, stroke, TIA, or heart attack in the past. Being a woman with a history of high blood pressure in (preeclampsia). Being over the age of 60. Being male. Having family history of stroke. Having the following diseases or conditions: ?High blood pressure. ?High cholesterol. ?Diabetes. ?Heart disease. ?Sickle cell disease. ?Sleep apnea. ?Migraine headache. ?Long-term (chronic) diseases that cause soreness and swelling (inflammation). ?Disorders that affect how your blood clots. Follow these instructions at home: Medicines Take eqlb-erd-mettfcc and prescription medicines only as told by your doctor. If you were told to take aspirin or another medicine to thin your blood, take it exactly as told by your doctor. ?Taking too much of the medicine can cause bleeding. ?Taking too little of the medicine may not work to treat the problem. Eating and drinking Eat 5 or more servings of fruits and vegetables each day. Follow instructions from your doctor about your diet. You may need to follow a certain diet to help lower your risk of having a stroke. You may need to: ?Eat a diet that is low in fat and salt. ?Eat foods that contain a lot of fiber. ?Limit the amount of carbohydrates and sugar in your diet. Limit alcohol intake to 1 drink a day for non women and 2 drinks a day for men. One drink equals 12 oz of beer, 5 oz of wine, or 1 oz of hard liquor. General instructions Keep a healthy weight. Stay active. Try to get at least 30 minutes of activity on all or most days. Find out if you have a condition called sleep apnea. Get treatment if needed. Do not use any products that contain nicotine or tobacco, such as cigarettes and e-cigarettes. If you need help quitting, ask your doctor. Do not abuse drugs. Keep all follow-up visits as told by your doctor. This is important. Get help right away if: You have any signs of stroke. BE FAST is an easy way to remember the main warning signs: ?B - Balance. Signs are dizziness, sudden trouble walking, or loss of balance. ?E - Eyes. Signs are trouble seeing or a sudden change in how you see. ?F - Face. Signs are sudden weakness or loss of feeling of the face, or the face or eyelid drooping on one side. ?A - Arms. Signs are weakness or loss of feeling in an arm. This happens suddenly and usually on one side of the body. ?S - Speech. Signs are sudden trouble speaking, slurred speech, or trouble understanding what people say. ?T - Time. Time to call emergency services. Write down what time symptoms started. You have other signs of stroke, such as: ? A sudden, very bad headache with no known cause. ? Feeling sick to your stomach (nausea). ? Throwing up (vomiting). ?Jerky movements that you cannot control (seizure). These symptoms may be an emergency. Do not wait to see if the symptoms will go away. Get medical help right away. Call your local emergency services (911 in the [place] Do not drive yourself to the hospital. Summary A transient ischemic attack (TIA) is a warning stroke that causes stroke-like symptoms that go away quickly. A TIA is a medical emergency. Get help right away, even if your symptoms go away. A TIA does not cause lasting damage to the brain. Having a TIA is a sign that you may be at risk for a stroke. Lifestyle changes and medical treatments can help prevent a stroke. This information is not intended to replace advice given to you by your health care provider. Make sure you discuss any questions you have with your health care provider. Document Released: 12/12/2008 Document Revised: 11/29/2018 Document Reviewed: 06/06/2017 [employer] [facility] Patient Education 2020 [employer]. Follow Up Care 11/18/2022 14:35:23 With:FORD BENJAMIN Address: [address] [place] [address] [phone] When:5 to 7 days [facility] 11-20-2022 Note Discharge Instructions Thank you for allowing [facility] to assist you with your healthcare needs. The following is important discharge information regarding your hospital visit. Your Care Team FORD BENJAMIN Your Diagnosis Folate deficiency Potential stroke What to do next Scheduled Follow-Up Appointments Appointment Type When With Where Contact InformationHEM ONC OV Follow Up 12/07/2022 04:00 PM EDT [facility] Medicare 02/23/2023 03:00 PM EST FORD BENJAMIN [address] [phone] Follow Up Appointments Follow Up with FORD BENJAMIN When Within 5 to 7 days Where: [address] [place] [address] [phone] The Following Activity and Diet Have Been Ordered for You Discharge Activity - Ordered -- NO activity restrictions, 11/20/22 13:00:00 EDT Discharge Diet - Ordered -- Type of Diet: Regular, 11/20/22 13:00:00 EDT The Following Equipment Has Been Ordered for You No qualifying data available. The Following Treatments Have Been Ordered for You Discharge Labs No qualifying data available. Discharge Radiology No qualifying data available. Other Therapies Discharge Event Monitor Instructions - Ordered -- 11/20/22 13:00:53 EDT, You have been ordered mobile outpatient telemetry. You should receive a device in the mail with further instructions. If you have not received a device within 7 days after discharge, please call [facility] at [phone]. Post Acute Orders No qualifying data available. Someone Will Contact You Regarding These Home Health Referrals No home referrals have been ordered for you. No one will call you. Allergies Lactose (Upset stomach) Medications Please ask your primary doctor or pharmacist before taking any other medication not listed, including over the counter drugs, herbal medications, vitamins and or supplements as they may interact with your home medications. What How Much When Why Instructions Last Dose New clopidogrel (Plavix 75 mg oral tablet) 1 tab(s) by mouth Once a day Duration: 21 Days Pickup at [facility] Unchanged amLODIPine (Norvasc 5 mg oral tablet) 1 tab(s) by mouth Once a day Hypertension Unchanged aspirin (aspirin 81 mg oral tablet, chewable) 1 tab(s) Chewed Once a day History of stroke History of carotid endarterectomy Unchanged atenolol (atenolol 50 mg oral tablet) 1 tab(s) by mouth Every day Hypertension Unchanged atorvastatin (atorvastatin 80 mg oral tablet) 1 tab(s) by mouth Once a day Cerebral infarct Hypertension Unchanged famotidine (famotidine 20 mg oral tablet) 1 tab(s) by mouth Once a day Unchanged folic acid (folic acid 1 mg oral tablet) 3 tab(s) by mouth Once a day Folate deficiency Duration: 90 Days Unchanged herbal/ nutritional product (Probiotic) 1 tab(s) by mouth Once a day Unchanged lisinopril (lisinopril 5 mg oral tablet) 1 tab(s) by mouth Once a day Unchanged multivitamin with minerals (Hair, skin and Nails) 1 tab(s) by mouth Once a day Unchanged nitroGLYcerin (nitroglycerin 0.4 mg sublingual tablet) 1 tab(s) under the tongue Every 5 minutes as needed for as needed for chest pain not to exceed 3 doses/ 15 min--if pain persists, seek medical attention Pharmacy Information [id number]: [address] [place], [place] [phone] Please take this list to your next doctor s visit. Bring all medications you take, including over the counter medications, herbals and other supplements with you to your doctor s visit. Patients and families are reminded to discard old lists and to update any records with all medication providers or retail pharmacies. Education Materials Transient Ischemic Attack A transient ischemic attack (TIA) is a warning stroke that causes stroke-like symptoms that go away quickly. A TIA does not cause lasting damage to the brain. But having a TIA is a sign that you may be at risk for a stroke. Lifestyle changes and medical treatments can help prevent a stroke. It is important to know the symptoms of a TIA and what to do. Get help right away, even if your symptoms go away. The symptoms of a TIA are the same as those of a stroke. They can happen fast, and they usually go away within minutes or hours. They can include: Weakness or loss of feeling in your face, arm, or leg. This often happens on one side of your body. Trouble walking. Trouble moving your arms or legs. Trouble talking or understanding what people are saying. Trouble seeing. Seeing two of one object (double vision). Feeling dizzy. Feeling confused. Loss of balance or coordination. Feeling sick to your stomach (nauseous) and throwing up (vomiting). A very bad headache for no reason. What increases the risk? Certain things may make you more likely to have a TIA. Some of these are things that you can change, such as: Being very overweight (obese). Using products that contain nicotine or tobacco, such as cigarettes and e-cigarettes. Taking control pills. Not being active. Drinking too much alcohol. Using drugs. Other risk factors include: Having an irregular heartbeat (atrial fibrillation). Being or . Having had blood clots, stroke, TIA, or heart attack in the past. Being a woman with a history of high blood pressure in (preeclampsia). Being over the age of 60. Being male. Having family history of stroke. Having the following diseases or conditions: ? High blood pressure. ? High cholesterol. ? Diabetes. ? Heart disease. ? Sickle cell disease. ? Sleep apnea. ? Migraine headache. ? Long-term (chronic) diseases that cause soreness and swelling (inflammation). ? Disorders that affect how your blood clots. Follow these instructions at home: Medicines Take mond-jyt-iflzvft and prescription medicines only as told by your doctor. If you were told to take aspirin or another medicine to thin your blood, take it exactly as told by your doctor. ? Taking too much of the medicine can cause bleeding. ? Taking too little of the medicine may not work to treat the problem. Eating and drinking Eat 5 or more servings of fruits and vegetables each day. Follow instructions from your doctor about your diet. You may need to follow a certain diet to help lower your risk of having a stroke. You may need to: ? Eat a diet that is low in fat and salt. ? Eat foods that contain a lot of fiber. ? Limit the amount of carbohydrates and sugar in your diet. Limit alcohol intake to 1 drink a day for non women and 2 drinks a day for men. One drink equals 12 oz of beer, 5 oz of wine, or 1 oz of hard liquor. General instructions Keep a healthy weight. Stay active. Try to get at least 30 minutes of activity on all or most days. Find out if you have a condition called sleep apnea. Get treatment if needed. Do not use any products that contain nicotine or tobacco, such as cigarettes and e-cigarettes. If you need help quitting, ask your doctor. Do not abuse drugs. Keep all follow-up visits as told by your doctor. This is important. Get help right away if: You have any signs of stroke. BE FAST is an easy way to remember the main warning signs: ? B - Balance. Signs are dizziness, sudden trouble walking, or loss of balance. ? E - Eyes. Signs are trouble seeing or a sudden change in how you see. ? F - Face. Signs are sudden weakness or loss of feeling of the face, or the face or eyelid drooping on one side. ? A - Arms. Signs are weakness or loss of feeling in an arm. This happens suddenly and usually on one side of the body. ? S - Speech. Signs are sudden trouble speaking, slurred speech, or trouble understanding what people say. ? T - Time. Time to call emergency services. Write down what time symptoms started. You have other signs of stroke, such as: ? A sudden, very bad headache with no known cause. ? Feeling sick to your stomach (nausea). ? Throwing up (vomiting). ? Jerky movements that you cannot control (seizure). These symptoms may be an emergency. Do not wait to see if the symptoms will go away. Get medical help right away. Call your local emergency services (911 in the [place] Do not drive yourself to the hospital. Summary A transient ischemic attack (TIA) is a warning stroke that causes stroke-like symptoms that go away quickly. A TIA is a medical emergency. Get help right away, even if your symptoms go away. A TIA does not cause lasting damage to the brain. Having a TIA is a sign that you may be at risk for a stroke. Lifestyle changes and medical treatments can help prevent a stroke. This information is not intended to replace advice given to you by your health care provider. Make sure you discuss any questions you have with your health care provider. Document Released: 12/12/2008 Document Revised: 11/29/2018 Document Reviewed: 06/06/2017 Elsevier Patient Education 2020 [employer] Additional Information VACCINATE! IT SAVES LIVES! Members of the community who have not yet received the COVID-19 vaccine and would like to receive it can visit one of [facility] vaccine clinics. There are many vaccine clinic locations within the [facility]. For locations and available times, please visit https://gettheshot.coronavirus.o hio.gov/. It is important to note that some COVID mobile vaccine clinics are held outdoors and may be canceled in rainy or stormy conditions. To learn more about pediatric vaccinations (ages 5-11), we invite you to visit the [employer] webpage. https://www.Bionanopluss.org/p ages/9780-Eyqlk-Jpjrheczhad-Freq othors-Brxkl-Vplniclld.html To learn more about the COVID-19 vaccine, we invite you to visit the CDC website for a list of frequently asked questions.https://www.cdc.gov/co ronavirus/2019-ncov/vaccines/faq .html [facility] Patient Portal Access Instructions: Stay connected with your healthcare team and access your personal medical information anytime with the [facility] Patient Portal. Please follow the directions below to create your [facility] account: 1.Access the email account you provided upon registration to the hospital/physician office.2.Look for an invitation email from [facility].3.Open the email and access the invitation link: Accept Invitation to [facility].4.Fill in the required cheung to create your account. To access your account, visit [employer]. Click the blue button labeled Access Patient Portal and then log in with the username and password that you created in the steps above. You will be able to view your test results, lab results, a summary of your visits, upcoming appointments and more. There is also a convenient messaging option where you can send secure messages to your provider. In addition, you will have the ability to download any documents or summaries to your computer and/or send the information securely to a physician. Remember that your healthcare information is confidential, so carefully consider who you will allow to register on the [facility] for access to your information. You can also access the [facility] Patient Portal on the [facility] [place]. Simply click on Patient Portal and then log into your account. If you would like to receive a full copy of your medical records, please contact the [facility] Medical Records Department by calling [phone], Sunday through Sunday between 8 a.m. and 4:30 p.m. HOW TO SAFELY DISPOSE OF PRESCRIPTION MEDICATIONS Please use one of the following methods to safely dispose of your unused medications. 1.Use a drug disposal kit: the drug disposal pouch allows you to safely discard your old and unused drugs. Ask your nurse to give you one when you are discharged.2.Visit a local take-back location: Many local pharmacies and police departments have programs that collect old and unwanted prescription drugs. Call your local pharmacy or go to http://[employer].Housebites/8N5Qe2o to find one close to you.3.Make use of household items: Use cat litter or old coffee grounds to dispose medications if other options are not available. Mix your drugs with these household products, seal them in an airtight container and throw it into the garbage. Call [facility]: [phone] to be sure your drugs can be disposed of in this way. Some medicines may require a different approach.4.Never flush your medications down the toilet. IF YOU HAVE BEEN PRESCRIBED AN OPIOID FOR PAIN If you have been prescribed an opioid (such as hydrocodone, oxycodone or morphine), it is critical to understand the possible side effects and risks of opioid pain medications. Even when taken as directed, opioids can have several side effects including: Tolerance, meaning you might need to take more of a medication for the same pain relief. Nausea, vomiting and/or constipation. Sleepiness, dizziness, dry mouth, confusion, depression or itching. Physical dependence, meaning you have withdrawal symptoms when a medication is stopped, can develop within a few days. KNOW YOUR RESPONSIBILITIES It is important to know exactly how much and how often to take the opioid pain medications you are prescribed. Never take opioids in higher amounts or more often than prescribed. Do not combine opioids with alcohol or other drugs that cause drowsiness, such as benzodiazepines, also known as benzos, including diazepam and alprazolam, muscle relaxants or sleep aids. Never sell or share prescription opioids. This is illegal. Store opioids in a secure place and out of reach of others (including children, family, friends and visitors). The last page of this document has been signed and retained as a CHART COPY. Signatures Patient Education Materials Transient Ischemic Attack, [id number] Medication Leaflets My discharge plan and instructions have been reviewed and explained to me and I,ANA PAULA CEJA understand my current condition and have read and understand these discharge instructions. I have received a written copy of the plan/instructions. If I have questions, I am aware that I should contact my doctor. Patient/Physician General Practice Signature: Date/Time: Relationship to Patient: Witness Name/Signature: Date/Time: [facility] 11-20-2022 Discharge summary Date of Service 11/20/22 Discharge Diagnosis TIA HTN Carotid stenosis GERD AYESHA Hospital Course 57 years old female with past medical history significant for multiple TIAs and stroke, carotid artery disease status post right-sided carotid endarterectomy, hypertension, GERD presented to the [facility] ER on November 18, 2022 with chief concern of right-sided weakness and numbness that started around 1:30 PM on the day of presentation, now symptoms improved. MRI showed no acute CVA, 2D echo EF 60-65%, all presenting symptoms are resolved ,Neurology on consult, recommended to be on dual anti platelet therapy for 21 days, then to continue ASA. need 30 days events monitoring after discharge. Allergies Lactose (Upset stomach) Consults Consult to Physician (Physician Consult) - Ordered -- 11/18/22 16:31:00 EDT, GOLD GUTIERREZ MD, Routine, Acute CVA Consult to Rehabilitation - Ordered -- 11/18/22 16:31:00 EDT, Inpatient Rehabilitation Unit Evaluation Objective Vitals and Measurements T: 36.7 C (Oral) TMIN: 36.4 C (Oral) TMAX: 37.0 C (Oral) HR: 62 RR: 18 BP: 157/73 SpO2: 99% Weight Dosing Weight: 94.9 kg (11/18/22) Dosing Weight: 94.9 kg (11/18/22) Gen: Appears comfortable, not in distress. HEENT: No pallor, no icterus, neck supple. Lungs: CTA, good air entry, diminished breath sounds. CVS: S1-S2 regular rate and rhythm, no murmur noted Abd: Nontender, bowel sounds noted, no organomegaly Ext: Pulses symmetric, no edema Skin: No rash, no nodules Neuro: Alert, no focal deficit Code Status Code Status - Ordered -- 11/18/22 16:32:00 EDT, Full Code, Constant Order Admission Date 11/18/22 Discharge Date 11/20/22 Medications New Prescription clopidogrel (Plavix 75 mg oral tablet)1 tab(s) by mouth once a day for 21 Days. Refills: 0. Unchanged amLODIPine (Norvasc 5 mg oral tablet)1 tab(s) by mouth once a day. Refills: 3. aspirin (aspirin 81 mg oral tablet, chewable)1 tab(s) Chewed once a day. Refills: 3. atenolol (atenolol 50 mg oral tablet)1 tab(s) by mouth every day. Refills: 3. atorvastatin (atorvastatin 80 mg oral tablet)1 tab(s) by mouth once a day. Refills: 0. famotidine (famotidine 20 mg oral tablet)1 tab(s) by mouth once a day. folic acid (folic acid 1 mg oral tablet)3 tab(s) by mouth once a day for 90 Days. Refills: 1. herbal/nutritional product (Probiotic)1 tab(s) by mouth once a day. lisinopril (lisinopril 5 mg oral tablet)1 tab(s) by mouth once a day. multivitamin with minerals (Hair, skin and Nails)1 tab(s) by mouth once a day. nitroGLYcerin (nitroglycerin 0.4 mg sublingual tablet)1 tab(s) under the tongue every 5 minutes as needed as needed for chest pain. not to exceed 3 doses/15 min--if pain persists, seek medical attention. Follow Up Appointments No qualifying data available. Follow Up Labs/Studies Discharge Labs No Follow-up Labs Discharge Studies No Follow-up Studies Discharge Diet Discharge Diet - Ordered -- Type of Diet: Regular, 11/20/22 13:00:00 EDT Discharge Activity Discharge Activity - Ordered -- NO activity restrictions, 11/20/22 13:00:00 EDT Condition on Discharge stable Readmission Risk/Palliative Score No qualifying data available. Discharge Disposition Home Time Spent 33 minutes Digitally Signed by ANTONIO PIMENTEL MD on 11/21/2022 01:12 AM [facility] 09-03-2023 Note Date of Service 11/19/22 Subjective 57 years old female with past medical history significant for multiple TIAs and stroke, carotid artery disease status post right-sided carotid endarterectomy, hypertension, GERD presented to the [facility] ER on November 18, 2022 with chief concern of right-sided weakness and numbness that started around 1:30 PM on the day of presentation, now symptoms improved. MRI no acute CVA, 2D echo pending Objective Vitals and Measurements T: 36.4 C (Oral) TMIN: 36.4 C (Oral) TMAX: 37.0 C (Oral) HR: 57 RR: 18 BP: 159/85 SpO2: 96% Intake and Output 7AM Yesterday to 7AM Today Intake and Output (Last 24 hours) Intake Oral Intake 520.00 Output Total Summary Total Intake 520.00 Total Output 0.00 Fluid Balance 520.00 Physical Exam Gen: Appears comfortable, not in distress. HEENT: No pallor, no icterus, neck supple. Lungs: CTA, good air entry, diminished breath sounds. CVS: S1-S2 regular rate and rhythm, no murmur noted Abd: Nontender, bowel sounds noted, no organomegaly Ext: Pulses symmetric, no edema Skin: No rash, no nodules Neuro: Alert, right side slightly weak Weight Dosing Weight: 94.9 kg (11/18/22) Dosing Weight: 94.9 kg (11/18/22) Medications Medications (11) Active Scheduled: (5) aspirin 81 mg EC 81 mg 1 tab(s), Oral, qDayM clopidogrel 75 mg Tablet 75 mg 1 tab(s), Oral, qDay famotidine 20 mg tablet 20 mg 1 tab(s), Oral, qDay folic acid 1 mg tablet 3 mg 3 tab(s), Oral, qDay heparin 5,000 units/mL (1 mL) vial 5,000 unit(s) 1 mL, Subcutaneous, q8h Continuous: (1) NS (0.9% nacl) 1,000 mL 1,000 mL, Intravenous, 100 mL/hr PRN: (5) acetaminophen 325 mg Tablet 650 mg 2 tab(s), Oral, q4h acetaminophen 325 mg Tablet 650 mg 2 tab(s), Oral, q6hr acetaminophen 650 mg Suppository 650 mg 1 supp, Rectal, q4h hydralazine 20 mg/mL (1mL) vial 10 mg 0.5 mL, IV Push, q4h melatonin 3 mg tablet 3 mg 1 tab(s), Oral, qHS Lab Results 11/19 05:47 WBC: 5.4 Hgb: 11.6 L Hct: 34.7 Platelet: 245 Neutrophil %: 53.6 Glucose Level: 91 Sodium Level: 143 Potassium Level: 4.2 BUN: 17.0 Creatinine Lvl (s): 1.07 11/18 15:03 WBC: 7.4 Hgb: 13.2 Hct: 39.0 Platelet: 274 Neutrophil %: 64.7 Protime: 11.9 PT International Ratio: 1.0 Glucose Level: 132 H Sodium Level: 134 L Potassium Level: 4.4 BUN: 17.0 Creatinine Lvl (s): 1.25 H EKG No qualifying data available. Assessment/Plan TIA, on ASA +Plavix, Neurology on consult, MRI of brain no acute CVA, 2D echo pending. HTN, not in control. monitor closely. Carotid stenosis, on ASA Plvs GERD on H2 blockade AYESHA resolved. sq Heparin for DVT prophylaxis Digitally Signed by ANTONIO PIMENTEL MD on 11/19/2022 11:48 PM [id number] Nurse Progress note Patient left the floor a total of three times today the first time the patient stated she was goingto the cafeteria after coming back on the floor. Charge nurse was notified and bed alarm was placedon. The patient and family was turning the alarm off and disconnecting the patient from her IV pumpto leave the floor. The second time the nurse tracked her down the patient in the [place] building exiting the main entrance. Security was called and explained the situation she has a telemonitor on and IV access and keeps sneaking out to smoke. Security stated they will handle it. Multiple security guards were radioed and they did not stop the patient nor talk to the patient. The electronic systems security assessment turns around and told the nurse that she is not a pink slip so we can not stop her from leaving the building regardless the reason. There was a third time the patient left the floor again and the nursing supervisor tile and mottle was contacted. They spoke with the patient and the family stating she can not leave, we offered a nicotine patch and the patient refused. Patient stating she is leaving regardless tomorrow. Digitally Signed by Megan Ortiz RN on 11/19/2022 08:06 PM [id number] Note ORIGINAL EXAMINATION: MRI OF THE BRAIN WITHOUT CONTRAST11/19/2022 3:20 pm TECHNIQUE: Multiplanar multisequence MRI of the brain was performed without the administration of intravenous contrast. Sagittal T1, axial FLAIR, T2 and diffusion-weighted images of the brain with ADC maps. COMPARISON: CT head 11/18/2022, CTA head 11/18/2022 HISTORY: ORDERING SYSTEM PROVIDED HISTORY: Reason for Exam: Dizziness, blurred vision, right-sided weakness since Sunday, possible stroke FINDINGS: Diffusion imaging shows no hyperacute, acute, or early subacute infarction. There is no mass, mass effect, or abnormal extra-axial fluid collection. No abnormal brain parenchymal signal is identified. The ventricles are normal in size, shape, and position. There are normal flow voids within the larger intracranial vessels. Noted in the left sphenoid sinus. There is mild ethmoid fluid. Small volume of fluid noted within the mastoid air cells. The marrow signal pattern is within normal limits. IMPRESSION: No evidence of hyperacute, acute, or early subacute infarction on diffusion imaging. No other acute intracranial abnormality or mass effect. Paranasal sinus disease as above. Nonspecific mastoid effusions. I have personally reviewed the images of this examination and agree with the resident's findings and interpretation. Interpreted by: Giacomo Vargas MD Preliminary Report By: Bigg Peterson Electronically signed By Giacomo Vargas MD Dictated Date: 11/19/2022 3:25:23 PM Prelim Date: 11/19/2022 3:31:44 PM Sign Date: 11/19/2022 3:39:40 PM Ordering Provider: [facility]09-03-2023 Neurology Progress note Date of Service 11/19/22 Chief Complaint Stroke Subjective Patient seen and examined with daughter present. Bedside RN reports no acute events overnight. However nurse reports that patient is anxious about leaving and going home that she is her 's editor in chief and no one else in the family can help take care of him while she is in the hospital so she continues to tell staff that if she does not get her MRI done today she is going to leave AGAINST MEDICAL ADVICE. Nurse reports patient keeps going off unit with daughter throughout the hospital even after advised not to do so in which security found her in the parking lot and there was concerns thatshe had been smoking cigarettes. Again she was advised not to leave the floor by staff. Upon examina tion patient looks alert, oriented x3, following commands. She reports she continues to have decreased sensation in her right leg that is unchanged however decreased sensation in her right arm has subsided. She states that her weakness on the right side is unchanged from when she came in. It is noted that she does have some residual left-sided weakness from chronic stroke in the past, confirmed today that her weakness is at her baseline. Observed her walk in swain with daughter she did fairly well appearing steady not leaning to any particular side. States her blurred vision in both eyes are unchanged from yesterday. She denies any complaints of lightheadedness, dizziness, headache, nausea, vomiting, speech disturbances. No new focal neuro findings today on exam. Objective Vitals and Measurements T: 37.0 C (Oral) TMIN: 36.6 C (Oral) TMAX: 37.0 C (Oral) HR: 73(Monitored) RR: 18 BP: 125/79 SpO2: 96% HT: 162.6 cm WT: 94.9 kg BMI: 35.89 Intake and Output 7AM Yesterday to 7AM Today Intake and Output (Last 24 hours) Intake Oral Intake 400.00 Output Stool Count 0.00 Urine Count 1.00 Total Summary Total Intake 400.00 Total Output 0.00 Fluid Balance 400.00 Physical Exam Neurologic Exam Mental Status: Orientation: Oriented to person, [facility], and month Language: Normal fluency, normal simple comprehension Speech: Non-dysarthric Cranial Nerves: Pupils: 4mm -> 2mm bilaterally Visual Cheung: full to confrontation bilaterally CN III, IV, : EOMI. No nystagmus CN V: intact sensation to light touch and temp CN VII: face symmetric at rest. Facial muscle strength intact CN VIII: auditory acuity intact to bedside testing Sensation: Light touch: intact in all but RLE, RUE subsided. Motor: Involuntary movements: none Strength: LUE: 5/-5 proximally, 5-/5 distally (chronic baseline weakness from prev CVA) RUE: 5-/5 proximally, 5-/5 distally (New weakness) LLE: 5-/5 proximally, 5-/5 distally (chronic baseline weakness from prev CVA) RLE: 5-/5 proximally, 5-/5 distally (New weakness) Coordination: [id number]-[id number] movements: RUE ataxia Reflexes: R: L B 2 2 BR 2 2 P 2 2 Toes touch down Weight Dosing Weight: 94.9 kg (11/18/22) Dosing Weight: 94.9 kg (11/18/22) Medications Medications (11) Active Scheduled: (5) aspirin 81 mg EC 81 mg 1 tab(s), Oral, qDayM clopidogrel 75 mg Tablet 75 mg 1 tab(s), Oral, qDay famotidine 20 mg tablet 20 mg 1 tab(s), Oral, qDay folic acid 1 mg tablet 3 mg 3 tab(s), Oral, qDay heparin 5,000 units/mL (1 mL) vial 5,000 unit(s) 1 mL, Subcutaneous, q8h Continuous: (1) NS (0.9% nacl) 1,000 mL 1,000 mL, Intravenous, 100 mL/hr PRN: (5) acetaminophen 325 mg Tablet 650 mg 2 tab(s), Oral, q4h acetaminophen 325 mg Tablet 650 mg 2 tab(s), Oral, q6hr acetaminophen 650 mg Suppository 650 mg 1 supp, Rectal, q4h hydralazine 20 mg/mL (1mL) vial 10 mg 0.5 mL, IV Push, q4h melatonin 3 mg tablet 3 mg 1 tab(s), Oral, qHS Lab Results 11/19 05:47 WBC: 5.4 Hgb: 11.6 L Hct: 34.7 Platelet: 245 Neutrophil %: 53.6 Glucose Level: 91 Sodium Level: 143 Potassium Level: 4.2 BUN: 17.0 Creatinine Lvl (s): 1.07 11/18 15:03 WBC: 7.4 Hgb: 13.2 Hct: 39.0 Platelet: 274 Neutrophil %: 64.7 Protime: 11.9 PT International Ratio: 1.0 Glucose Level: 132 H Sodium Level: 134 L Potassium Level: 4.4 BUN: 17.0 Creatinine Lvl (s): 1.25 H Imaging Results and Diagnostics XR Chest 1 View Result Date: November 18, 2022 Verified By: RICCARDO LEWIS MD CLINICAL STATEMENT: IMPRESSION: No acute abnormality is identified. CT Angiography Neck w/ Contrast Result Date: November 18, 2022 Verified By: CAMERON CORONADO DO CLINICAL STATEMENT: IMPRESSION: 1. No intracranial large vessel occlusion.2. No occlusion or ICA stenosis per NASCET criteria. CT Angiography Head w/ Contrast Result Date: November 18, 2022 Verified By: CAMERON CORONADO DO CLINICAL STATEMENT: IMPRESSION: 1. No intracranial large vessel occlusion.2. No occlusion or ICA stenosis per NASCET criteria. CT Head or Brain w/o Contrast Result Date: November 18, 2022 Verified By: CAMERON CORONADO DO CLINICAL STATEMENT: IMPRESSION: No acute intracranial abnormality. Paranasal sinus disease as above. I have personally reviewed the images of this examination and agree with theresident's findings and interpretation. Assessment/Plan IMPRESSION Stroke H/o stroke A 57 years old female with past medical history significant for multiple TIAs and stroke, carotid artery disease status post right-sided carotid endarterectomy, hypertension, tobacco abuse. Her presentation is concerning for small stroke. Stroke workup underway. Per a recent Hematology visit she does not have a hypercoagulable disorder which had been considered in the past after her initial stroke. PLAN: -Ordered MRI brain w/o contrast -TTE ordered -CTA neck/head reviewed. -Labs reviewed. Hemoglobin A1c 5.4%, cholesterol 111, LDL 63. General guidelines for long-term vascular risk factor modification in the setting of a stroke: SBP goal: < 130 as tolerated Goal Total cholesterol: < LDL: 70 HbA1c: < 7 -Continue 21day dual anti-platelet therapy ASA and plavix 75mg daily, then after 21days then ASA. Pt educated on bleeding risks, understood. -Discussed stroke education/risk factors and modification plans to minimize her risks. Encourage smoking cessation as well. -GI/DVT prophylaxis per primary team -PT/OT/ST -Fall precautions -Further medical management per medical team -Case discussed with hospitalist medical team -Follow up with her Neurology located in [place] in 4 weeks as outpatient Discussed this plan with collaborating physician who agrees with plan Independently spent 50 minutes with the patient Will peripherally follow test but tentatively sign off. Please call with questions if any. Thank you for allowing us to participate in patients care and management. All questions were answered Digitally Signed by CATHLEEN PECK on 11/19/2022 02:37 PM [id number] History and physical note Date of Service November 18, 2022 Chief Complaint pt sts she was watching her grandchild ride a ride at the fair had a sudden onset of dizziness, facial numbness and rt sided weakness, sts it took an hour to get [facility] medics to respond, +n/v and sweating initially History of Present Illness A 57 years old female with past medical history significant for multiple TIAs and stroke, carotid artery disease status post right-sided carotid endarterectomy, hypertension, GERD presented to the [facility] ER on November 18, 2022 with chief concern of right-sided weakness and numbness that s tarted around 1:30 PM on the day of presentation NIH of 2 on presentation, did report some blurry vision in the right visual field. Patient has left-sided weakness at baseline due to prior stroke. Evaluated by neurology in the ER, CT head and CT angio head and neck did not show any acute abnormalities or evidence of LVO or significant carotid artery stenosis. Not a candidate for tPA per neurology on admission. Vitally stable on my evaluation, labs on admission were significant for macrocytosis, hyponatremia sodium 134, mild bump in creatinine of 1.25 with baseline around 0.91. Troponin is negative. CT headand CT angio head and neck as above. EKG on admission demonstrated sinus rhythm with QTc of 444 ms. There is questionable history of hypercoagulable state and patient is following up with hematology in outpatient basis, genetic work-up was sent recently Review of Systems Review of systems are negative except as mentioned in HPI. Physical Exam Vitals and Measurements T: 36.6 C (Oral) HR: 67(Monitored) RR: 17 BP: 117/65 SpO2: 98% HT: 162.6 cm WT: 94.9 kg Weight Dosing Weight: 94.9 kg (11/18/22) General Appearance: Appears to be stable and in no acute distress Head: Atraumatic and normocephalic EENT: EOMI, PERRLA, no oropharyngeal erythema, no tonsillar exudates, no conjunctival injection. sclera anicteric. Neck: No thyromegaly, no cervical lymphadenopathy, trachea midline Cardiac: S1 and S2 normal. RRR. No murmurs, rubs, or gallops. No JVD. No hepatojugular reflex. Lungs: Good air entry bilaterally. No increased work for breathing. No wheezes, rhonchi, or rales. Abdomen: Soft, nontender, nondistended. Normoactive bowel sounds. No rebound or guarding. Negative Dalton's sign. No hepatosplenomegaly. Musculoskeletal: Full range of motion upper and lower extremities. No CVA tenderness. Extremities: No lower extremity pitting edema. 2+ radial and pedal pulses bilaterally. Neurological: Decreased/blurry vision in the right visual field, decreased sensation in the right upper and right lower extremity, power 4-5 out of 5 bilateral upper and bilateral lower extremities, Babinski equivocal Skin: No abrasions, scars, or hematomas on visible skin. No cyanosis. No purulent discharge. Psychiatric: Alert and oriented, well groomed, euthymic. cooperative Lab Results 11/18 15:03 WBC: 7.4 Hgb: 13.2 Hct: 39.0 Platelet: 274 Neutrophil %: 64.7 Protime: 11.9 PT International Ratio: 1.0 Glucose Level: 132 H Sodium Level: 134 L Potassium Level: 4.4 BUN: 17.0 Creatinine Lvl (s): 1.25 H WBC: 7.4 10^3/mcL (11/18/22 15:03:00) RBC: 3.79 10^6/mcL Low (11/18/22 15:03:00) Hgb: 13.2 G/dL (11/18/22 15:03:00) Hct: 39 % (11/18/22 15:03:00) MCV: 103.1 fL High (11/18/22 15:03:00) MCH: 34.9 pg High (11/18/22 15:03:00) MCHC: 33.8 G/dL (11/18/22 15:03:00) RDW: 12.5 % (11/18/22 15:03:00) Platelet: 274 10^3/mcL (11/18/22 15:03:00) MPV: 8.8 fL (11/18/22 15:03:00) Monocyte Distribution Width: 19.96 (11/18/22 15:03:00) Neutrophil %: 64.7 % (11/18/22 15:03:00) Lymphocyte %: 24.7 % (11/18/22 15:03:00) Monocyte %: 8 % (11/18/22 15:03:00) Eosinophil %: 1.6 % (11/18/22 15:03:00) Basophil %: 1 % (11/18/22 15:03:00) Neutrophil, Absolute: 4.8 10^3/mcL (11/18/22 15:03:00) Lymphocyte, Absolute: 1.8 10^3/mcL (11/18/22 15:03:00) Monocyte, Absolute: 0.6 10^3/mcL (11/18/22 15:03:00) Eosinophil, Absolute: 0.1 10^3/mcL (11/18/22 15:03:00) Basophil, Absolute: 0.1 10^3/mcL (11/18/22 15:03:00) Heparin dose (APTT): Unknown (11/18/22 15:03:00) APTT: 29.9 seconds (11/18/22 15:03:00) Protime: 11.9 seconds (11/18/22 15:03:00) PT International Ratio: 1 ratio (11/18/22 15:03:00) Glucose Level: 132 mg/dL High (11/18/22 15:03:00) Sodium Level: 134 mEq/L Low (11/18/22 15:03:00) Potassium Level: 4.4 mEq/L (11/18/22 15:03:00) Chloride: 107 mEq/L (11/18/22 15:03:00) CO2: 24 mEq/L (11/18/22 15:03:00) Electrolyte Balance: 3 mEq/L Low (11/18/22 15:03:00) BUN: 17 mg/dL (11/18/22 15:03:00) Creatinine Lvl (s): 1.25 mg/dL High (11/18/22 15:03:00) BUN/Creatinine Ratio: 13.6 ratio (11/18/22 15:03:00) Calcium Lvl: 9.4 mg/dL (11/18/22 15:03:00) GFR Non-: 44 ml/min/1.73sqm (11/18/22 15:03:00) GFR : 53 ml/min/1.73sqm (11/18/22 15:03:00) Troponin I High Sensitivity: 2.91 ng/L (11/18/22 15:03:00) Imaging Results and Diagnostics CT Angiography Neck w/ Contrast Result Date: November 18, 2022 Verified By: CAMERON CORONADO DO CLINICAL STATEMENT: IMPRESSION: 1. No intracranial large vessel occlusion.2. No occlusion or ICA stenosis per NASCET criteria. CT Angiography Head w/ Contrast Result Date: November 18, 2022 Verified By: CAMERON CORONADO DO CLINICAL STATEMENT: IMPRESSION: 1. No intracranial large vessel occlusion.2. No occlusion or ICA stenosis per NASCET criteria. CT Head or Brain w/o Contrast Result Date: November 18, 2022 Verified By: CAMERON CORONADO DO CLINICAL STATEMENT: IMPRESSION: No acute intracranial abnormality. Paranasal sinus disease as above. I have personally reviewed the images of this examination and agree with theresident's findings and interpretation. EKG EC11/18/22: SINUS RHYTHM LOW VOLTAGE, EXTREMITY AND PRECORDIAL LEADS Compared to ECG at 04/29/2021 15:48:27 Electronic Signature: YAIMA PALMA DO 11/18/2022 15:51:11 Assessment/Plan Acute CVA: Presented with right-sided weakness and numbness Does have left-sided weakness at baseline due to prior stroke Is on aspirin and Plavix at home CT head and CT angio head and neck did not show acute abnormalities Not a tPA candidate on admission per neurology Did pass bedside swallow evaluation Cardiac diet, aspirin, Plavix and statin Permissive hypertension PT/OT Neurology consulted MRI brain, echocardiogram ordered Hypertension: Permissive hypertension for now, avoid scheduled antihypertensives IV hydralazine 10 mg as needed for systolic more than 220 and diastolic more than 110 Carotid artery disease: Prior carotid artery disease status post right-sided endarterectomy several years ago No significant carotid artery stenosis on CT angio neck Hyponatremia: Sodium 134 on admission Likely due to hypovolemia NS 100 mL per hour Elevated creatinine: Creatinine of 1.25 on admission with baseline around 1.9 on Does not meet AYESHA criteria IV fluids GERD: Resume famotidine once med rec is done DVT prophylaxis: Heparin subcu Medication reconciliation was not done at the time of this dictation as medication history was not completed and home medications were not verified by pharmacy. Note was written using [employer] nurse staff software. Some of the meaning of the words and sentences might have changed during nurse staff, if there was ever some confusion about the meaning of some sentences, please do not hesitate to contact me. Problem List/Past Medical History Ongoing Avulsed toenail Breast cancer screening Carotid arterial disease Cervical cancer screening Colon cancer screening Family history of ovarian cancer History of carotid endarterectomy History of CVA in adulthood History of TIAs Hypertension Macrocytosis Peripheral neuropathy Tobacco use Urinary problem Well adult exam Historical Carotid stenosis Cerebral infarct Procedure/Surgical History Carotid endarterectomy: 05/12/21 Left le Left elbow Hysterectomy Appendectomy Carpal tunnel Medications Home Medications (11) Active aspirin 81 mg oral tablet, chewable 81 mg = 1 tab(s), Chewed, qDay atenolol 50 mg oral tablet 50 mg = 1 tab(s), Oral, Daily atorvastatin 80 mg oral tablet 80 mg = 1 tab(s), Oral, qDay biotin 1 tab(s), Oral, qDay folic acid 1 mg oral tablet 3 mg = 3 tab(s), Oral, qDay lisinopril 5 mg oral tablet 5 mg = 1 tab(s), Oral, qDay nitroglycerin 0.4 mg sublingual tablet 0.4 mg = 1 tab(s), PRN, Sublingual, q5min Norvasc 5 mg oral tablet 5 mg = 1 tab(s), Oral, qDay Pepcid 40 mg oral tablet 20 mg = 0.5 tab(s), Oral, BID Probiotic 1 tab(s), Oral, Daily Ventolin HFA MDI (90 mcg/inh) inhalation aerosol 1 puff(s), PRN, Inhalation, QID Allergies Lactose (Upset stomach) Social History Alcohol Use: Current. Type: Liquor. Frequency: 1-2 times per week., 05/12/2021 Home/Environment Primary [place] Sorter: self., 04/13/2021 Nutrition/Health Type of diet: Regular, only eats twice daily. Appetite Good. Eating Difficulties None, LACTOSE Intolerant. Caffeine intake amount: none., 05/11/2021 Sexual Self described orientation: Straight or heterosexual., 05/12/2021 Substance Abuse Use: Never., 04/12/2021 Tobacco Nicotine Use: 10 or more cigarettes (1/2 pack or more)/day in last 30 days. Type: Cigarettes., 05/12/2021 Family History Diabetes: Mother. Heart disease: Father and Grandparent. Kidney disease: Mother. Malignant neoplasm of liver: Father. Malignant tumor of uterus: Mother. Multiple sclerosis: Daughter. Thyroid disease: Sister. Immunizations No qualifying data available. Code Status Code Status - Ordered -- 11/18/22 16:32:00 EDT, Full Code, Constant Order Digitally Signed by CARRIE DAWSON MD on 11/18/2022 05:08 PM [id number] History and physical note Date of Service November 18, 2022 Chief Complaint pt sts she was watching her grandchild ride a ride at the fair had a sudden onset of dizziness, facial numbness and rt sided weakness, sts it took an hour to get [facility] medics to respond, +n/v and sweating initially History of Present Illness A 57 years old female with past medical history significant for multiple TIAs and stroke, carotid artery disease status post right-sided carotid endarterectomy, hypertension, GERD presented to the [facility] ER on November 18, 2022 with chief concern of right-sided weakness and numbness that s tarted around 1:30 PM on the day of presentation NIH of 2 on presentation, did report some blurry vision in the right visual field. Patient has left-sided weakness at baseline due to prior stroke. Evaluated by neurology in the ER, CT head and CT angio head and neck did not show any acute abnormalities or evidence of LVO or significant carotid artery stenosis. Not a candidate for tPA per neurology on admission. Vitally stable on my evaluation, labs on admission were significant for macrocytosis, hyponatremia sodium 134, mild bump in creatinine of 1.25 with baseline around 0.91. Troponin is negative. CT headand CT angio head and neck as above. EKG on admission demonstrated sinus rhythm with QTc of 444 ms. There is questionable history of hypercoagulable state and patient is following up with hematology in outpatient basis, genetic work-up was sent recently Review of Systems Review of systems are negative except as mentioned in HPI. Physical Exam Vitals and Measurements T: 36.6 C (Oral) HR: 67(Monitored) RR: 17 BP: 117/65 SpO2: 98% HT: 162.6 cm WT: 94.9 kg Weight Dosing Weight: 94.9 kg (11/18/22) General Appearance: Appears to be stable and in no acute distress Head: Atraumatic and normocephalic EENT: EOMI, PERRLA, no oropharyngeal erythema, no tonsillar exudates, no conjunctival injection. sclera anicteric. Neck: No thyromegaly, no cervical lymphadenopathy, trachea midline Cardiac: S1 and S2 normal. RRR. No murmurs, rubs, or gallops. No JVD. No hepatojugular reflex. Lungs: Good air entry bilaterally. No increased work for breathing. No wheezes, rhonchi, or rales. Abdomen: Soft, nontender, nondistended. Normoactive bowel sounds. No rebound or guarding. Negative Dalton's sign. No hepatosplenomegaly. Musculoskeletal: Full range of motion upper and lower extremities. No CVA tenderness. Extremities: No lower extremity pitting edema. 2+ radial and pedal pulses bilaterally. Neurological: Decreased/blurry vision in the right visual field, decreased sensation in the right upper and right lower extremity, power 4-5 out of 5 bilateral upper and bilateral lower extremities, Babinski equivocal Skin: No abrasions, scars, or hematomas on visible skin. No cyanosis. No purulent discharge. Psychiatric: Alert and oriented, well groomed, euthymic. cooperative Lab Results 11/18 15:03 WBC: 7.4 Hgb: 13.2 Hct: 39.0 Platelet: 274 Neutrophil %: 64.7 Protime: 11.9 PT International Ratio: 1.0 Glucose Level: 132 H Sodium Level: 134 L Potassium Level: 4.4 BUN: 17.0 Creatinine Lvl (s): 1.25 H WBC: 7.4 10^3/mcL (11/18/22 15:03:00) RBC: 3.79 10^6/mcL Low (11/18/22 15:03:00) Hgb: 13.2 G/dL (11/18/22 15:03:00) Hct: 39 % (11/18/22 15:03:00) MCV: 103.1 fL High (11/18/22 15:03:00) MCH: 34.9 pg High (11/18/22 15:03:00) MCHC: 33.8 G/dL (11/18/22 15:03:00) RDW: 12.5 % (11/18/22 15:03:00) Platelet: 274 10^3/mcL (11/18/22 15:03:00) MPV: 8.8 fL (11/18/22 15:03:00) Monocyte Distribution Width: 19.96 (11/18/22 15:03:00) Neutrophil %: 64.7 % (11/18/22 15:03:00) Lymphocyte %: 24.7 % (11/18/22 15:03:00) Monocyte %: 8 % (11/18/22 15:03:00) Eosinophil %: 1.6 % (11/18/22 15:03:00) Basophil %: 1 % (11/18/22 15:03:00) Neutrophil, Absolute: 4.8 10^3/mcL (11/18/22 15:03:00) Lymphocyte, Absolute: 1.8 10^3/mcL (11/18/22 15:03:00) Monocyte, Absolute: 0.6 10^3/mcL (11/18/22 15:03:00) Eosinophil, Absolute: 0.1 10^3/mcL (11/18/22 15:03:00) Basophil, Absolute: 0.1 10^3/mcL (11/18/22 15:03:00) Heparin dose (APTT): Unknown (11/18/22 15:03:00) APTT: 29.9 seconds (11/18/22 15:03:00) Protime: 11.9 seconds (11/18/22 15:03:00) PT International Ratio: 1 ratio (11/18/22 15:03:00) Glucose Level: 132 mg/dL High (11/18/22 15:03:00) Sodium Level: 134 mEq/L Low (11/18/22 15:03:00) Potassium Level: 4.4 mEq/L (11/18/22 15:03:00) Chloride: 107 mEq/L (11/18/22 15:03:00) CO2: 24 mEq/L (11/18/22 15:03:00) Electrolyte Balance: 3 mEq/L Low (11/18/22 15:03:00) BUN: 17 mg/dL (11/18/22 15:03:00) Creatinine Lvl (s): 1.25 mg/dL High (11/18/22 15:03:00) BUN/Creatinine Ratio: 13.6 ratio (11/18/22 15:03:00) Calcium Lvl: 9.4 mg/dL (11/18/22 15:03:00) GFR Non-: 44 ml/min/1.73sqm (11/18/22 15:03:00) GFR : 53 ml/min/1.73sqm (11/18/22 15:03:00) Troponin I High Sensitivity: 2.91 ng/L (11/18/22 15:03:00) Imaging Results and Diagnostics CT Angiography Neck w/ Contrast Result Date: November 18, 2022 Verified By: CAMERON CORONADO DO CLINICAL STATEMENT: IMPRESSION: 1. No intracranial large vessel occlusion.2. No occlusion or ICA stenosis per NASCET criteria. CT Angiography Head w/ Contrast Result Date: November 18, 2022 Verified By: CAMERON CORONADO DO CLINICAL STATEMENT: IMPRESSION: 1. No intracranial large vessel occlusion.2. No occlusion or ICA stenosis per NASCET criteria. CT Head or Brain w/o Contrast Result Date: November 18, 2022 Verified By: CAMERON CORONADO DO CLINICAL STATEMENT: IMPRESSION: No acute intracranial abnormality. Paranasal sinus disease as above. I have personally reviewed the images of this examination and agree with theresident's findings and interpretation. EKG EC11/18/22: SINUS RHYTHM LOW VOLTAGE, EXTREMITY AND PRECORDIAL LEADS Compared to ECG at 04/29/2021 15:48:27 Electronic Signature: YAIMA PALMA DO 11/18/2022 15:51:11 Assessment/Plan Acute CVA: Presented with right-sided weakness and numbness Does have left-sided weakness at baseline due to prior stroke Is on aspirin and Plavix at home CT head and CT angio head and neck did not show acute abnormalities Not a tPA candidate on admission per neurology Did pass bedside swallow evaluation Cardiac diet, aspirin, Plavix and statin Permissive hypertension PT/OT Neurology consulted MRI brain, echocardiogram ordered Hypertension: Permissive hypertension for now, avoid scheduled antihypertensives IV hydralazine 10 mg as needed for systolic more than 220 and diastolic more than 110 Carotid artery disease: Prior carotid artery disease status post right-sided endarterectomy several years ago No significant carotid artery stenosis on CT angio neck Hyponatremia: Sodium 134 on admission Likely due to hypovolemia NS 100 mL per hour Elevated creatinine: Creatinine of 1.25 on admission with baseline around 1.9 on Does not meet AYESHA criteria IV fluids GERD: Resume famotidine once med rec is done DVT prophylaxis: Heparin subcu Medication reconciliation was not done at the time of this dictation as medication history was not completed and home medications were not verified by pharmacy. Note was written using [employer] nurse staff software. Some of the meaning of the words and sentences might have changed during nurse staff, if there was ever some confusion about the meaning of some sentences, please do not hesitate to contact me. Problem List/Past Medical History Ongoing Avulsed toenail Breast cancer screening Carotid arterial disease Cervical cancer screening Colon cancer screening Family history of ovarian cancer History of carotid endarterectomy History of CVA in adulthood History of TIAs Hypertension Macrocytosis Peripheral neuropathy Tobacco use Urinary problem Well adult exam Historical Carotid stenosis Cerebral infarct Procedure/Surgical History Carotid endarterectomy: 05/12/21 Left le Left elbow Hysterectomy Appendectomy Carpal tunnel Medications Home Medications (11) Active aspirin 81 mg oral tablet, chewable 81 mg = 1 tab(s), Chewed, qDay atenolol 50 mg oral tablet 50 mg = 1 tab(s), Oral, Daily atorvastatin 80 mg oral tablet 80 mg = 1 tab(s), Oral, qDay biotin 1 tab(s), Oral, qDay folic acid 1 mg oral tablet 3 mg = 3 tab(s), Oral, qDay lisinopril 5 mg oral tablet 5 mg = 1 tab(s), Oral, qDay nitroglycerin 0.4 mg sublingual tablet 0.4 mg = 1 tab(s), PRN, Sublingual, q5min Norvasc 5 mg oral tablet 5 mg = 1 tab(s), Oral, qDay Pepcid 40 mg oral tablet 20 mg = 0.5 tab(s), Oral, BID Probiotic 1 tab(s), Oral, Daily Ventolin HFA MDI (90 mcg/inh) inhalation aerosol 1 puff(s), PRN, Inhalation, QID Allergies Lactose (Upset stomach) Social History Alcohol Use: Current. Type: Liquor. Frequency: 1-2 times per week., 05/12/2021 Home/Environment Primary [place] Sorter: self., 04/13/2021 Nutrition/Health Type of diet: Regular, only eats twice daily. Appetite Good. Eating Difficulties None, LACTOSE Intolerant. Caffeine intake amount: none., 05/11/2021 Sexual Self described orientation: Straight or heterosexual., 05/12/2021 Substance Abuse Use: Never., 04/12/2021 Tobacco Nicotine Use: 10 or more cigarettes (1/2 pack or more)/day in last 30 days. Type: Cigarettes., 05/12/2021 Family History Diabetes: Mother. Heart disease: Father and Grandparent. Kidney disease: Mother. Malignant neoplasm of liver: Father. Malignant tumor of uterus: Mother. Multiple sclerosis: Daughter. Thyroid disease: Sister. Immunizations No qualifying data available. Code Status Code Status - Ordered -- 11/18/22 16:32:00 EDT, Full Code, Constant Order Digitally Signed by CARRIE DAWSON MD on 11/18/2022 05:08 PM [id number] Note ORIGINAL EXAMINATION: ONE XRAY VIEW OF THE CHEST 11/18/2022 4:33 pm COMPARISON: April 29, 2021 HISTORY: ORDERING SYSTEM PROVIDED HISTORY: Reason for Exam: chest pain/SOB FINDINGS: The cardiomediastinal silhouette appears stable. Cardiac device noted. There is no focal consolidation. There is no pulmonary edema. There is no evidence of pleural effusion. There is no evidence of pneumothorax. No fracture is identified. IMPRESSION: No acute abnormality is identified. Interpreted by: Riccardo Lewis Preliminary Report By: Riccardo Lewis Electronically signed By Riccardo Lewis Dictated Date: 11/18/2022 5:10:32 PM Prelim Date: 11/18/2022 5:13:14 PM Sign Date: 11/18/2022 5:13:14 PM Ordering Provider: [facility]09-02[facility]2023 Neurology Consult note Date of Service November 18, 2022 Reason for Consultation ED stroke alert Referring Physician ED History of Present Illness 57-year-old female with a history of multiple strokes. [place] when at approximately 1:30pm she had sudden onset of right-sided numbness and heaviness. She presented to the emergency room as a stroke alert and I evaluated her urgently. She denies any severe headache. She herself did not notice any other symptoms. She has a history of a stroke and resultant very mild left-sided weakness, she is status post right CEA, and she apparently has had a positive lupus anticoagulant in the past however on repeat it was negative, and has been on aspirin and a high dose statin. Review of Systems Aside from what is mentioned in the HPI, there were no other pertinent positives in the patient's review of systems. Physical Exam Vitals and Measurements No qualifying data available. NIH Stroke Scale: 1a. Level of Consciousness: 0 1b. Level of Consciousness Questions: 0 1c. LOC Commands: 0 2. Best Gaze: 0 3. Visual Deficits: 1 (partial HH) (reports blur in the right hemifield but no true loss of vision,able to count fingers. This also improved when her glasses were placed) 4. Facial Palsy: 0 5a. Left Motor Arm: 0 5b. Right Motor Arm: 0 6a. Left Motor Le 6b. Right Motor Le 7. Limb Ataxia: 0 8. Sensory Deficits: 1 9. Best Language: 0 10. Dysarthria: 0 11. Extinction/Inattention: 0 Total: 2 She was also able to ambulate without significant difficulty beyond baseline Lab Results No 36 Hour Lab Data Imaging Results and Diagnostics CT Head or Brain w/o Contrast Result Date: November 18, 2022 Verified By: CLINICAL STATEMENT: IMPRESSION: [prelim. NAP] CTA H/N: pending EKG Pending Assessment/Plan Stroke Likely small stroke. Benefits and risks of tenecteplase were reviewed in detail with the patient, including all definite and relative contraindications, and the risk of bleeding both into the brain and systemically. Given the risk was likely higher than the benefit due to mild/non-disabling symptoms, I suggested we hold the medication, which the patient was in agreement with. Barring any unexpected findings on CTA which would warrant a change in plans, would suggest a standard stroke admission including starting dual anti-platelet therapy. Records indicate she is already on high dose Lipitor. Records also indicate she has a Loop recorder in place. Per a recent Hematology visit she does not have a hypercoagulable disorder which had been considered in the past after her initial stroke. Will follow-up; please page our service with any issues or concerns in the meantime. >30 minutes of critical care time was spent on this case, including urgent assessment of the patient (who is at high risk of a critical neurologic condition and/or imminent deterioration), assistance with/coordination of acute care in the ED, rapid imaging interpretation, and discussion with theED team. Problem List/Past Medical History Ongoing Avulsed toenail Breast cancer screening Carotid arterial disease Cervical cancer screening Colon cancer screening Family history of ovarian cancer History of carotid endarterectomy History of CVA in adulthood History of TIAs Hypertension Macrocytosis Peripheral neuropathy Tobacco use Urinary problem Well adult exam Historical Carotid stenosis Cerebral infarct Procedure/Surgical History Carotid endarterectomy: 05/12/21 Left le Left elbow Hysterectomy Appendectomy Carpal tunnel Medications Inpatient No active inpatient medications Home aspirin 81 mg oral tablet, chewable, 81 mg= 1 tab(s), Chewed, qDay, 3 refills atenolol 50 mg oral tablet, 50 mg= 1 tab(s), Oral, Daily, 3 refills atorvastatin 80 mg oral tablet, 80 mg= 1 tab(s), Oral, qDay biotin, 1 tab(s), Oral, qDay folic acid 1 mg oral tablet, 3 mg= 3 tab(s), Oral, qDay, 1 refills lisinopril 5 mg oral tablet, 5 mg= 1 tab(s), Oral, qDay nitroglycerin 0.4 mg sublingual tablet, 0.4 mg= 1 tab(s), Sublingual, q5min, PRN Norvasc 5 mg oral tablet, 5 mg= 1 tab(s), Oral, qDay, 3 refills Pepcid 40 mg oral tablet, 20 mg= 0.5 tab(s), Oral, BID Probiotic, 1 tab(s), Oral, Daily Ventolin HFA MDI (90 mcg/inh) inhalation aerosol, 1 puff(s), Inhalation, QID, PRN Allergies Lactose (Upset stomach) Social History Alcohol Use: Current. Type: Liquor. Frequency: 1-2 times per week., 05/12/2021 Home/Environment Primary [place] Sorter: self., 04/13/2021 Nutrition/Health Type of diet: Regular, only eats twice daily. Appetite Good. Eating Difficulties None, LACTOSE Intolerant. Caffeine intake amount: none., 05/11/2021 Sexual Self described orientation: Straight or heterosexual., 05/12/2021 Substance Abuse Use: Never., 04/12/2021 Tobacco Nicotine Use: 10 or more cigarettes (1/2 pack or more)/day in last 30 days. Type: Cigarettes., 05/12/2021 Family History Diabetes: Mother. Heart disease: Father and Grandparent. Kidney disease: Mother. Malignant neoplasm of liver: Father. Malignant tumor of uterus: Mother. Multiple sclerosis: Daughter. Thyroid disease: Sister. Digitally Signed by GOLD GUTIERREZ MD on 11/18/2022 03:19 PM [id number] Note ORIGINAL EXAMINATION: CTA OF THE HEAD WITH CONTRAST; CTA OF THE NECK11/18/2022 3:18 pm; 11/18/2022 3:21 pm TECHNIQUE: CTA of the head/brain was performed with the administration of intravenous contrast. Multiplanar reformatted images are provided for review. MIP images are provided for review. Automated exposure control, iterative reconstruction, and/or weight based adjustment of the mA/kV was utilized to reduce the radiation dose to as low as reasonably achievable.; CTA of the neck was performed with the administration of intravenous contrast. Multiplanar reformatted images are provided for review. MIP images are provided for review. Stenosis of the internal carotid arteries measured using NASCET criteria. Automated exposure control, iterative reconstruction, and/or weight based adjustment of the mA/kV was utilized to reduce the radiation dose to as low as reasonably achievable. COMPARISON: None. HISTORY: ORDERING SYSTEM PROVIDED HISTORY: Reason for Exam: RIGHT SIDED NUMBNESS. HX STROKE 03/2021. ON PLAVIX, HTN. stroke; ORDERING SYSTEM PROVIDED HISTORY: Reason for Exam: RIGHT SIDED NUMBNESS. HX STROKE 03/2021. ON PLAVIX, HTN. Stroke, emergency patient FINDINGS: HEAD: The petrous, cavernous, and supraclinoid segments of the bilateral internal carotid arteries demonstrate no stenosis. The ophthalmic artery origins are visualized and normal. The anterior and middle cerebral arteries are patent bilaterally. The anterior communicating artery is patent. The posterior communicating arteries are patent bilaterally. There is circulation bilaterally. Posterior cerebral arteries appear patent.. The vertebral arteries are widely patent. The basilar artery and origins of the superior cerebellar arteries are normal. No saccular aneurysm is demonstrated. While the study was optimized for arterial evaluation, the dural venous sinuses demonstrates no evidence of thrombosis. NECK: The innominate and LEFT common carotid arteries share an origin from the aortic arch, a normal variant. There is moderate stenosis of the left subclavian arterial origin secondary new noncalcified atherosclerosis. There is no significant ICA stenosis. The bilateral external carotid arteries are patent. The cervical vertebral arteries are patent left dominant. The right vertebral artery is diminutive along its course. There is no evidence of arterial dissection, occlusion, extravasation of contrast material, arteriovenous fistula, or pseudoaneurysm. Multilevel degenerative changes of the spine. Lung apices demonstrate emphysema, but are otherwise clear. IMPRESSION: 1. No intracranial large vessel occlusion. 2. No occlusion or ICA stenosis per NASCET criteria. Interpreted by: Cameron Coronado DO Preliminary Report By: Cameron Coronado DO Electronically signed By Cameron Coronado DO Dictated Date: 11/18/2022 3:26:04 PM Prelim Date: 11/18/2022 3:32:46 PM Sign Date: 11/18/2022 3:32:46 PM Ordering Provider: YAIMA [facility]09-02-2023 Note ORIGINAL EXAMINATION: CTA OF THE HEAD WITH CONTRAST; CTA OF THE NECK11/18/2022 3:18 pm; 11/18/2022 3:21 pm TECHNIQUE: CTA of the head/brain was performed with the administration of intravenous contrast. Multiplanar reformatted images are provided for review. MIP images are provided for review. Automated exposure control, iterative reconstruction, and/or weight based adjustment of the mA/kV was utilized to reduce the radiation dose to as low as reasonably achievable.; CTA of the neck was performed with the administration of intravenous contrast. Multiplanar reformatted images are provided for review. MIP images are provided for review. Stenosis of the internal carotid arteries measured using NASCET criteria. Automated exposure control, iterative reconstruction, and/or weight based adjustment of the mA/kV was utilized to reduce the radiation dose to as low as reasonably achievable. COMPARISON: None. HISTORY: ORDERING SYSTEM PROVIDED HISTORY: Reason for Exam: RIGHT SIDED NUMBNESS. HX STROKE 03/2021. ON PLAVIX, HTN. stroke; ORDERING SYSTEM PROVIDED HISTORY: Reason for Exam: RIGHT SIDED NUMBNESS. HX STROKE 03/2021. ON PLAVIX, HTN. Stroke, emergency patient FINDINGS: HEAD: The petrous, cavernous, and supraclinoid segments of the bilateral internal carotid arteries demonstrate no stenosis. The ophthalmic artery origins are visualized and normal. The anterior and middle cerebral arteries are patent bilaterally. The anterior communicating artery is patent. The posterior communicating arteries are patent bilaterally. There is circulation bilaterally. Posterior cerebral arteries appear patent.. The vertebral arteries are widely patent. The basilar artery and origins of the superior cerebellar arteries are normal. No saccular aneurysm is demonstrated. While the study was optimized for arterial evaluation, the dural venous sinuses demonstrates no evidence of thrombosis. NECK: The innominate and LEFT common carotid arteries share an origin from the aortic arch, a normal variant. There is moderate stenosis of the left subclavian arterial origin secondary new noncalcified atherosclerosis. There is no significant ICA stenosis. The bilateral external carotid arteries are patent. The cervical vertebral arteries are patent left dominant. The right vertebral artery is diminutive along its course. There is no evidence of arterial dissection, occlusion, extravasation of contrast material, arteriovenous fistula, or pseudoaneurysm. Multilevel degenerative changes of the spine. Lung apices demonstrate emphysema, but are otherwise clear. IMPRESSION: 1. No intracranial large vessel occlusion. 2. No occlusion or ICA stenosis per NASCET criteria. Interpreted by: Cameron Coronado DO Preliminary Report By: Cameron Coronado DO Electronically signed By Cameron Coronado DO Dictated Date: 11/18/2022 3:26:04 PM Prelim Date: 11/18/2022 3:32:46 PM Sign Date: 11/18/2022 3:32:46 PM Ordering Provider: YAIMA [facility]09-02-2023 NoteSINUS RHYTHM LOW VOLTAGE, EXTREMITY AND PRECORDIAL LEADS Compared to ECG at 04/29/2021 15:48:27 Electronic Signature: ZORAIDAYAIMA LFORES 11/18/[facility]22 15:[facility] Note ORIGINAL EXAMINATION: CT OF THE HEAD WITHOUT CONTRAST11/18/2022 2:58 pm TECHNIQUE: Axial CT images from skull base to vertex without IV contrast. This exam was performed according to our departmental dose optimization program, and includes the following measures where applicable: automated exposure control, adjustment of the mAs and/or kVp according to patient size and/or exam, and an iterative reconstruction algorithm. COMPARISON: CT head 04/29/2021 HISTORY: ORDERING SYSTEM PROVIDED HISTORY: Reason for Exam: RIGHT SIDED NUMBNESS. HX STROKE 03/2021. ON PLAVIX, HTN. change in mental status/weakness/aphasia FINDINGS: There is no intracranial hemorrhage, mass, mass effect or abnormal extra-axial fluid collection. No CT evidence for acute infarction. Scattered foci of white matter hypoattenuation are noted in the cerebral white matter, nonspecific but compatible with mild chronic microvascular angiopathy. Atherosclerotic calcifications are present in the cavernous carotid arteries bilaterally. The ventricles are unremarkable. The skull base and calvarium demonstrate no acute abnormality. Mild mucosal thickening of the anterior ethmoid air cells bilaterally and left sphenoid sinus. There are aerated secretions within the left sphenoid sinus, which can be seen with acute sinusitis. The remainder of the included paranasal sinuses and mastoid air cells are predominantly clear. IMPRESSION: No acute intracranial abnormality. Paranasal sinus disease as above. I have personally reviewed the images of this examination and agree with the resident's findings and interpretation. Interpreted by: Cameron Coronado DO Preliminary Report By: Bigg Peterson Electronically signed By Cameron Coronado DO Dictated Date: 11/18/2022 3:04:31 PM Prelim Date: 11/18/2022 3:09:05 PM Sign Date: 11/18/2022 3:21:17 PM Ordering Provider: [id number] Evaluation + Plan noteExtracted from: Title:History and Physical Author:CARRIE DAWSON MD Date:11/18/22 Acute CVA: Presented with right-sided weakness and numbness Does have left-sided weakness at baseline due to prior stroke Is on aspirin and Plavix at home CT head and CT angio head and neck did not show acute abnormalities Not a tPA candidate on admission per neurology Did pass bedside swallow evaluation Cardiac diet, aspirin, Plavix and statin Permissive hypertension PT/OT Neurology consulted MRI brain, echocardiogram ordered Hypertension: Permissive hypertension for now, avoid scheduled antihypertensives IV hydralazine 10 mg as needed for systolic more than 220 and diastolic more than 110 Carotid artery disease: Prior carotid artery disease status post right-sided endarterectomy several years ago No significant carotid artery stenosis on CT angio neck Hyponatremia: Sodium 134 on admission Likely due to hypovolemia NS 100 mL per hour Elevated creatinine: Creatinine of 1.25 on admission with baseline around 1.9 on Does not meet AYESHA criteria IV fluids GERD: Resume famotidine once med rec is done DVT prophylaxis: Heparin subcu Medication reconciliation was not done at the time of this dictation as medication history was not completed and home medications were not verified by pharmacy. Note was written using [employer] nurse staff software. Some of the meaning of the words and sentences might have changed during nurse staff, if there was ever some confusion about the meaning of some sentences, please do not hesitate to contact me. Addendum by CARRIE DAWSON MD on November 18, 2022 19:35:57 EDT CPK of 356 on admission, hold statin for now, IV fluids have been ordered. Future Appointments Appointment Date:12/07/2022 04:00:00 PM Scheduled Provider: Location:HEM ONC Appointment Type:HEM ONC OV Follow Up Appointment Date:02/23/2023 03:00:00 PM Scheduled Provider:FORD BENJAMIN Location:[facility] Appointment Type:PC Wellness Medicare Future Scheduled Tests Laboratory* Thyroid Stimulating Hormone 08/17/22 [facility] 06-02-2023 Note. MICRO - Microbiology PROCEDURE: Urine Culture [*1] SOURCE: Urine, Clean Catch BODY SITE: COLLECTED DATE/TIME: 08/17/2022 15:33 EDT RECEIVED DATE/TIME: 08/17/2022 18:59 EDT START DATE/TIME: 08/17/2022 18:59 EDT FREE TEXT SOURCE: FINAL REPORTS Final Report [] Verified Date/Time/Personnel: 08/18/2022 14:22 EDT >100,000 cfu/ml Multiple bacterial morphotypes present. Probable Contamination. Suggest recollection if clinically indicated. Performing Locations *1: This test was performed at: [facility], [facility] [place] [address], [id number] , [facility] ([place])09-14-2021 NotePatient Outreach (INTMMN) ANA PAULA CEJA ([id number]) 1965 F Date Time Provider Department 09/14/21 BERONICA HALEY INTMMN During your visit today, we recorded the following information about you: Allergies As of Date: 09/14/2021 (No Known Allergies) Date Reviewed: 01/13/2020 Reviewed by: Adia Mcrae Ma - Fully Assessed Visit Diagnosis:Encounter for screening mammogram for breast cancer [Z12.31] Order(s):[facility] SCREENING [[id number]] Order #: [id number] FUTURE Prescriptions as of 09/19/2021 - atenolol (TENORMIN) 50 mg tablet Take 1.5 tablets by mouth once daily. - albuterol HFA (VENTOLIN HFA) 90 mcg/actuation inhaler Inhale 2 Puffs as instructed every 4 hours as needed. For shortness of breath or wheezing. - famotidine (PEPCID) 20 mg tablet Take 1 tablet by mouth twice daily. - ALPRAZolam (XANAX) 0.5 mg tablet Take 1 tablet by mouth three times daily as needed for Anxiety for up to 10 days. - Cholecalciferol, Vitamin D3, (VITAMIN D-3) 2,000 unit cap Take 1 capsule by mouth once daily. - montelukast (SINGULAIR) 10 mg tablet Take 1 tablet by mouth daily at bedtime. - beclomethasone (QVAR REDIHALER) 40 mcg/actuation inhaler Inhale 1 Puff as instructed twice daily. - tiZANidine (ZANAFLEX) 4 mg tablet Take 1 tablet by mouth every 8 hours as needed (muscle spasms). - naproxen (NAPROSYN) 500 mg tablet Take 1 tablet by mouth twice daily with meals. Take with food. - fluticasone (FLONASE) 50 mcg/actuation nasal spray Use 2 Sprays in each nostril once daily. Rinse mouth after use. - nitroglycerin sublingual (NITROQUICK) 0.4 mg SL tablet Dissolve 1 tablet under the tongue as needed. FOR CHEST PAIN. IF NO RELIEF CALL 911 Problem List As Of Date 09/14/2021 Noted Resolved Mitral Valve Prolapse [I34.1] 10/08/2009 Abdominal pain, epigastric [R10.13] Duodenitis without mention of hemorrhage [K29.8*12/23/2009 02/16/2010 Acute gastritis without mention of hemorrhage [*12/23/2009 01/09/2011 Anxiety [F41.9] 02/16/2010 Menorrhagia [N92.0] 05/02/2012 Essential hypertension, benign [I10] 05/21/2012 Reactive airway disease [J45.909] 10/31/2017 Encounter Status:Closed by QuikCycleR on 09/19/21[facility] 07-11-2021 NoteHNO ID: [id number] Author: Marni Jordan Ma Service: ? Author Type: ? Type: Progress Notes Filed: 07/11/2021 2:03 PM Note Text: POPULATION HEALTH NAVIGATION OUTREACH Action/FYI Pt was left a vm to return call. Pt identified by name and : YES, via phone Outreach Outcome/Action Unable to reach patient: Left message Reason for Outreach Care Gap or Scheduling/Wellness visits Payer: Payor: [facility] MEDICAID / Plan: [facility] [employer] MEDICAID / Product Type: Medicaid / Care Gap Reviewed:: Follow-up appointment Reminder: Reminder note to check Health Maintenance for items below Health Maintenance items due: COVID-19 VACCINE(1) Never done HIV SCREENING Never done BP CONTROLLED (<130/80) Never done COLORECTAL CANCER SCREENING Never done SHINGRIX VACCINE(1 of 2) Never done MAMMOGRAM due on 05/06/2019 DTAP,TDAP,TD(2 - Td or Tdap) due on 08/28/2019 ANNUAL PCP TEAM CHRONIC DISEASE VISIT due on 11/02/2019 DEPRESSION SCREENING due on 11/02/2019 Message Sent to Practice: Yes Navigation Signature: Marni Jordan Ma July 11, 2021 1:56 [facility]04-25-2022 NoteHNO ID: [id number] Author: Marni Jordan Ma Service: ? Author Type: ? Type: Progress Notes Filed: 07/11/2021 1:55 PM Note Text: See outreach enc.[facility]04-25-2022 NotePatient Outreach (ABBYWS) ANA PAULA CEJA ([id number]) 1965 F Date Time Provider Department 07/11/21 MURALI BROWN During your visit today, we recorded the following information about you: Murali Brown APRN.CNP 07/11/2021 1:55 PM Signed STAMP Please reach out to patient for overdue appointment for chronic disease management with myself, Dr. Haley, or Cathleen Kern. Labs are ordered. If he/she is no longer following with Dr. Haley, please remove name from PCP field. NOMI Arredondo Ma 07/11/2021 1:55 PM Signed See outreach enc. Allergies As of Date: 07/11/2021 (No Known Allergies) Date Reviewed: 01/13/2020 Reviewed by: Adia Mcrae Ma - Fully Assessed Primary Visit Diagnosis:Essential hypertension, benign [I10] Other Visit Diagnosis:Screening for lipid disorders [Z13.220] Order(s):COMP METABOLIC PANEL [SQCMP] Order #: [id number] FUTURE LIPID PANEL BASIC [SQLIPB] Order #: [id number] FUTURE Prescriptions as of 07/11/2021 - atenolol (TENORMIN) 50 mg tablet Take 1.5 tablets by mouth once daily. - albuterol HFA (VENTOLIN HFA) 90 mcg/actuation inhaler Inhale 2 Puffs as instructed every 4 hours as needed. For shortness of breath or wheezing. - famotidine (PEPCID) 20 mg tablet Take 1 tablet by mouth twice daily. - ALPRAZolam (XANAX) 0.5 mg tablet Take 1 tablet by mouth three times daily as needed for Anxiety for up to 10 days. - Cholecalciferol, Vitamin D3, (VITAMIN D-3) 2,000 unit cap Take 1 capsule by mouth once daily. - montelukast (SINGULAIR) 10 mg tablet Take 1 tablet by mouth daily at bedtime. - beclomethasone (QVAR REDIHALER) 40 mcg/actuation inhaler Inhale 1 Puff as instructed twice daily. - tiZANidine (ZANAFLEX) 4 mg tablet Take 1 tablet by mouth every 8 hours as needed (muscle spasms). - naproxen (NAPROSYN) 500 mg tablet Take 1 tablet by mouth twice daily with meals. Take with food. - fluticasone (FLONASE) 50 mcg/actuation nasal spray Use 2 Sprays in each nostril once daily. Rinse mouth after use. - nitroglycerin sublingual (NITROQUICK) 0.4 mg SL tablet Dissolve 1 tablet under the tongue as needed. FOR CHEST PAIN. IF NO RELIEF CALL 911 Problem List As Of Date 07/11/2021 Noted Resolved Mitral Valve Prolapse [I34.1] 10/08/2009 Abdominal pain, epigastric [R10.13] Duodenitis without mention of hemorrhage [K29.8*12/23/2009 02/16/2010 Acute gastritis without mention of hemorrhage [*12/23/2009 01/09/2011 Anxiety [F41.9] 02/16/2010 Menorrhagia [N92.0] 05/02/2012 Essential hypertension, benign [I10] 05/21/2012 Reactive airway disease [J45.909] 10/31/2017 Encounter Status:Closed by MARNI JORDAN MA on 07/11/21[facility]04-25-2022 NotePatient Outreach (FAMPWS) ANA PAULA CEJA ([id number]) 1965 F Date Time Provider Department 07/11/21 MARNI JORDAN During your visit today, we recorded the following information about you: Marni Jordan Ma 07/11/2021 2:03 PM Signed POPULATION HEALTH NAVIGATION OUTREACH Action/FYI Pt was left a vm to return call. Pt identified by name and : YES, via phone Outreach Outcome/Action Unable to reach patient: Left message Reason for Outreach Care Gap or Scheduling/Wellness visits Payer: Payor: [facility] MEDICAID / Plan: [facility] [employer] MEDICAID / Product Type: Medicaid / Care Gap Reviewed:: Follow-up appointment Reminder: Reminder note to check Health Maintenance for items below Health Maintenance items due: COVID-19 VACCINE(1) Never done HIV SCREENING Never done BP CONTROLLED (<130/80) Never done COLORECTAL CANCER SCREENING Never done SHINGRIX VACCINE(1 of 2) Never done MAMMOGRAM due on 05/06/2019 DTAP,TDAP,TD(2 - Td or Tdap) due on 08/28/2019 ANNUAL PCP TEAM CHRONIC DISEASE VISIT due on 11/02/2019 DEPRESSION SCREENING due on 11/02/2019 Message Sent to Practice: Yes Navigation Signature: Marni Jordan Ma July 11, 2021 1:56 PM Allergies As of Date: 07/11/2021 (No Known Allergies) Date Reviewed: 01/13/2020 Reviewed by: Adia Mcrae Ma - Fully Assessed Reason for Visit: PHMA/Care Gap Outreach [[id number]] Prescriptions as of 07/11/2021 - atenolol (TENORMIN) 50 mg tablet Take 1.5 tablets by mouth once daily. - albuterol HFA (VENTOLIN HFA) 90 mcg/actuation inhaler Inhale 2 Puffs as instructed every 4 hours as needed. For shortness of breath or wheezing. - famotidine (PEPCID) 20 mg tablet Take 1 tablet by mouth twice daily. - ALPRAZolam (XANAX) 0.5 mg tablet Take 1 tablet by mouth three times daily as needed for Anxiety for up to 10 days. - Cholecalciferol, Vitamin D3, (VITAMIN D-3) 2,000 unit cap Take 1 capsule by mouth once daily. - montelukast (SINGULAIR) 10 mg tablet Take 1 tablet by mouth daily at bedtime. - beclomethasone (QVAR REDIHALER) 40 mcg/actuation inhaler Inhale 1 Puff as instructed twice daily. - tiZANidine (ZANAFLEX) 4 mg tablet Take 1 tablet by mouth every 8 hours as needed (muscle spasms). - naproxen (NAPROSYN) 500 mg tablet Take 1 tablet by mouth twice daily with meals. Take with food. - fluticasone (FLONASE) 50 mcg/actuation nasal spray Use 2 Sprays in each nostril once daily. Rinse mouth after use. - nitroglycerin sublingual (NITROQUICK) 0.4 mg SL tablet Dissolve 1 tablet under the tongue as needed. FOR CHEST PAIN. IF NO RELIEF CALL 911 Problem List As Of Date 07/11/2021 Noted Resolved Mitral Valve Prolapse [I34.1] 10/08/2009 Abdominal pain, epigastric [R10.13] Duodenitis without mention of hemorrhage [K29.8*12/23/2009 02/16/2010 Acute gastritis without mention of hemorrhage [*12/23/2009 01/09/2011 Anxiety [F41.9] 02/16/2010 Menorrhagia [N92.0] 05/02/2012 Essential hypertension, benign [I10] 05/21/2012 Reactive airway disease [J45.909] 10/31/2017 Encounter Status:Closed by MARNI JORDAN MA on 07/11/21[facility]04-25-20[facility] History of Present illness Narrative* Marni Jordan Ma - 07/11/2021 1:56 PM EDT POPULATION HEALTH NAVIGATION OUTREACH Action/FYI Pt was left a vm to return call. Pt identified by name and : YES, via phone Outreach Outcome/Action Unable to reach patient: Left message Reason for Outreach Care Gap or Scheduling/Wellness visits Payer: Payor: [facility] MEDICAID / Plan: [facility] [employer] MEDICAID / Product Type: Medicaid / Care Gap Reviewed:: Follow-up appointment Reminder: Reminder note to check Health Maintenance for items below Health Maintenance items due: COVID-19 VACCINE(1) Never done HIV SCREENING Never done BP CONTROLLED (<130/80) Never done COLORECTAL CANCER SCREENING Never done SHINGRIX VACCINE(1 of 2) Never done MAMMOGRAM due on 05/06/2019 DTAP,TDAP,TD(2 - Td or Tdap) due on 08/28/2019 ANNUAL PCP TEAM CHRONIC DISEASE VISIT due on 11/02/2019 DEPRESSION SCREENING due on 11/02/2019 Message Sent to Practice: Yes Navigation Signature: Marni Jordan Ma July 11, 2021 1:56 PM [facility] History of Present illness Narrative* Marni Jordan Ma - 07/11/2021 1:55 PM EDT See outreach enc. * Murali Brown APRN.CNP - 07/11/2021 11:37 AM EDT STAMP Please reach out to patient for overdue appointment for chronic disease management with myself, , or Cathleen Kern. Labs are ordered. If he/she is no longer following with Dr. Haley, please remove name from PCP field. Murali Brown APRN.CNP documented in this encounterCleveland [facility]04-25-2022 NoteHNO ID: [id number] Author: Murali Brown APRN.CNP Service: ? Author Type: Nurse Practitioner Type: Progress Notes Filed: 07/11/2021 1:55 PM Note Text: STAMP Please reach out to patient for overdue appointment for chronic disease management with myself, Dr. Haley, or Cathleen Kern. Labs are ordered. If he/she is no longer following with Dr. Haley, please remove name from PCP field. Murali Brown APRN.CNPOhio[facility] Hospital02-[facility]-2022 Hospital Discharge instructions Patient Education 05/13/2021 14:25:09 Carotid Endarterectomy, Care After Carotid Endarterectomy, Care After This sheet gives you information about how to care for yourself after your procedure. Your health care provider may also give you more specific instructions. If you have problems or questions, contact your health care provider. What can I expect after the procedure? After the procedure, it is common to have some pain or an ache in your neck for up to 2 weeks. Thisis normal. Follow these instructions at home: Medicines Take lmqc-dze-bxylwrm and prescription medicines only as told by your health care provider. If you are given a blood thinner (anticoagulant) after surgery, take it exactly as told. Do not drive for 24 hours if you were given a sedative during your procedure. Do not drive or use heavy machinery while taking prescription pain medicine. Incision care Follow instructions from your health care provider about how to take care of your incision. Make sure you: ?Wash your hands with soap and water before and after you change your bandage (dressing). If soap and water are not available, use hand sandblaster paint sprayer. ?Change your dressing as told by your health care provider. ?Leave stitches (sutures), skin glue, or adhesive strips in place. These skin closures may need to stay in place for 2 weeks or longer. If adhesive strip edges start to loosen and curl up, you may trim the loose edges. Do not remove adhesive strips completely unless your health care provider tells you to do that. Check your incision area every day for signs of infection. Check for: ?Redness, swelling, or pain. ?Fluid or blood. ?Warmth. ?Pus or a bad smell. Do not take baths, swim, or use a hot tub until your health care provider approves. Ask your healthcare provider if you may take showers. You may only be allowed to take sponge baths. Activity Do not lift anything that is heavier than 10 lb (4.5 kg), or the limit that you are told, until your health care provider says that it is safe. Return to your normal activities as told by your health care provider. Ask your health care provider what activities are safe for you. ?Recovery time varies depending on your age, general health, and other factors. You will likely be able to return to a normal lifestyle within a few weeks. While you recover, you may need help with some activities, such as cleaning the house or shopping. Exercise regularly, or as told by your health care provider. Eating and drinking Follow instructions from your health care provider about eating or drinking restrictions. Drink enough fluid to keep your urine pale yellow. Eat a heart-healthy diet. This includes foods like fresh fruits and vegetables, whole grains, low-fat dairy products, and low-fat (lean) meats. Avoid foods that are: ?High in salt, saturated fat, or sugar. ?Canned or highly processed. ?Fried. Lifestyle If you drink alcohol: ?Limit how much you use to: ?0 1 drink a day for women. ?0 2 drinks a day for men. ?Be aware of how much alcohol is in your drink. In the [place] one drink equals one 12 oz bottle of beer (355 mL), one 5 oz glass of wine (148 mL), or one 1 oz glass of hard liquor (44 mL). Maintain a healthy weight. General instructions Avoid wearing tight clothing around your neck and your sutures. Work with your health care provider to keep your blood pressure under control. Do not use any products that contain nicotine or tobacco, such as cigarettes, e- cigarettes, and chewing tobacco. If you need help quitting, ask your health care provider. Keep all follow-up visits as told by your health care provider. This is important. Contact a health care provider if you have: Signs of infection, such as: ?Redness, swelling, or pain around your incision. ?Fluid or blood coming from your incision. ?Your incision feeling warm to the touch. ?Pus or a bad smell coming from your incision. ?A fever. A rash. Difficulty speaking or you have changes in your voice. Get help right away if you have: Difficulty breathing. Chest pain or shortness of breath. Any symptoms of a stroke. Certain factors may put you at risk for a stroke even after this procedure. These may include chronic lung disease, chronic kidney disease, narrowed arteries (peripheral arterial disease), previous history of a stroke, and being 60 years of age or older. BE FAST is an easy way to remember the main warning signs of a stroke: ?B - Balance. Signs are dizziness, sudden trouble walking, or loss of balance. ?E - Eyes. Signs are trouble seeing or a sudden change in vision. ?F - Face. Signs are sudden weakness or numbness of the face, or the face or eyelid drooping on oneside. ?A - Arms. Signs are weakness or numbness in an arm. This happens suddenly and usually on one side of the body. ?S - Speech. Signs are sudden trouble speaking, slurred speech, or trouble understanding what people say. ?T - Time. Time to call emergency services. Write down what time symptoms started. Other signs of a stroke, such as: ? A sudden, severe headache with no known cause. ?Nausea or vomiting. ?Seizure. These symptoms may represent a serious problem that is an emergency. Do not wait to see if the symptoms will go away. Get medical help right away. Call your local emergency services (911 in the [place] Do not drive yourself to the hospital. Summary After the procedure, it is common to have some pain or an ache in your neck for up to 2 weeks. Follow instructions from your health care provider about how to take care of your incision. Take nyrv-mgb-imxvtqn and prescription medicines only as told by your health care provider. Do not use any products that contain nicotine or tobacco, such as cigarettes, e- cigarettes, and chewing tobacco. If you need help quitting, ask your health care provider. Keep all follow-up visits as told by your health care provider. This is important. This information is not intended to replace advice given to you by your health care provider. Make sure you discuss any questions you have with your health care provider. Document Released: 09/22/2005 Document Revised: 04/14/2019 Document Reviewed: 11/12/2018 [employer] Patient Education 2019 [employer]. Follow Up Care 05/06/2021 14:02:16 With:MARTHA MALCOLM MD, [facility], Surgery, Vascular Surgeons Address: [facility] [address] [place] [phone] When:1-2 days Comments:Call and schedule follow-up appointment [facility] 02-12-2022 Hospital Discharge instructions Patient Education 04/30/2021 11:49:51 Hypertension, Cvnf-su-Pewa Hypertension Hypertension is another name for high blood pressure. High blood pressure may mean that your heart needs to work harder to pump blood. Blood pressure consists of two numbers, which includes a higher number over a lower number (example: 110/72). HOME CARE Make lifestyle changes as told by your doctor. This may include weight loss and exercise. Take your blood pressure medicine every day. Limit how much salt you use. Stop smoking if you smoke. Do not use drugs. Talk to your doctor if you are using decongestants or control pills. These medicines might make blood pressure higher. Females should not drink more than 1 alcoholic drink per day. Males should not drink more than 2 alcoholic drinks per day. See your doctor as told. GET HELP RIGHT AWAY IF: You have a blood pressure reading with a top number of 180 or higher. You get a very bad headache. You get blurred or changing vision. You feel confused. You feel weak, numb, or faint. You get chest or belly (abdominal ) pain. You throw up (vomit ). You cannot breathe very well. MAKE SURE YOU: Understand these instructions. Will watch your condition. Will get help right away if you are not doing well or get worse. Document Released: 08/21/2008 Document Revised: 02/22/2012 Document Reviewed: 08/21/2008 [facility] Patient Information 2012 [employer]. Follow Up Care 04/29/2021 18:21:29 With:[facility] Address: When:05/28/2021 With:FORD BENJAMIN [facility] Address: [id number] When:5 to 7 days With:MARTHA MALCOLM MD, [facility], Surgery, Vascular Surgeons Address: When:2-4 days With:DIEGO WASHINGTON [facility] Address: [id number] When:2-4 days Comments:Cardiac Clearance [facility] 02-11-2022 Evaluation + Plan noteExtracted from: Title:History and Physical Author:NASIM LOPEZ MD Date:04/29/21 Transient right high vision loss. 3 separate episodes of right eye vision loss followed by headaches. Recent CVA s/p TPA at [facility]. Records unavailable at this time, requested. Per patient, ophthalmology has evaluated her and she had no abnormality which would account for her symptoms. Persistent mild left-sided weaknes but no numbness. Cranial nerves II through XII grossly normal. Symptoms have resolved at this time. She is already on DAPT, statin. Will seek neurology input for suspected vascular phenomenon. Other considerations include complex migraine. -MRI brain -Echo with bubble -Lipid profile, A1c -Neurology consult. CAD. CTA showing 75% right-sided ICA stenosis. -Follow-up [facility] records. If patient has not seen a vascular surgeon, this may be considered. HTN. BP is mildly elevated. We will continue her home medications. Medications were not verified by pharmacy at the time of this dictation. Reconciliation to be completed once medications are verified; will address additional chronic medical problems at that time. DVT prophylaxis: SCDs Note dictated using voice recognition software and may contain typographical errors. Future Appointments Appointment Date:05/11/2021 01:30:00 PM Scheduled Provider:FORD BENJAMIN Location:[facility] Appointment Type:[facility] 01-25-2022 Hospital Discharge instructions Patient Education 04/12/2021 18:53:19 Weakness (Uncertain Cause) Weakness with Uncertain Cause Based on your exam today, the exact cause of your weakness is not certain. But your weakness does not seem to be a sign of a serious illness at this time. Keep an eye on your symptoms and get medicaladvice as instructed below. Home care Rest at home today. Don't over-exert yourself. Take any medicine as prescribed. For the next few days, drink extra fluids (unless your healthcare provider wants you to restrict fluids for other reasons). Don't skip meals. Unless otherwise directed, continue to take any prescription medicines. Contact your healthcare provider if you have any questions or concerns. Follow-up care Follow up with your healthcare provider, or as advised. When to seek medical advice Call your healthcare provider right away for any of the following: Symptoms get worse Symptoms don't start getting better within 2 days Fever of 100.4 F (38 C) or higher, or as directed by your healthcare provider Call 911 Call 911 for any of these: Chest, arm, neck, jaw, or upper back pain Trouble breathing Numbness or weakness of the face, one arm, or one leg Slurred speech, confusion, or trouble speaking, walking, or seeing Blood in vomit or stool (black or red color) Loss of consciousness Severe headache [id number] [employer]. [address] [place] [address]. All rights reserved. This information is not intended as a substitute for professional medical care. Always follow yourhealthcare professional's instructions. Follow Up Care 04/12/2021 14:03:05 With:MONO HUI Address: When:2-4 days With:AJIT CHAPA MD, [facility], Surgery, Vascular Surgeons Address: [id number] When:2-4 days [facility] Address: [id number] When:2-4 days [facility] 07-23-2021 NotePatient Outreach (INTMMN) ANA PAULA CEJA ([id number]) 1965 F Date Time Provider Department 10/08/20 BERONICA HALEY During your visit today, we recorded the following information about you: Allergies As of Date: 10/08/2020 (No Known Allergies) Date Reviewed: 01/13/2020 Reviewed by: Adai Mcrae Ma - Fully Assessed Visit Diagnosis:Encounter for screening mammogram for breast cancer [Z12.31] Order(s):[facility] SCREENING [[id number]] Order #: [id number] FUTURE Prescriptions as of 10/11/2020 - famotidine (PEPCID) 20 mg tablet Take 1 tablet by mouth twice daily. - atenolol (TENORMIN) 50 mg tablet Take 1.5 tablets by mouth once daily. - ALPRAZolam (XANAX) 0.5 mg tablet Take 1 tablet by mouth three times daily as needed for Anxiety for up to 10 days. - albuterol HFA (VENTOLIN HFA) 90 mcg/actuation inhaler Inhale 2 Puffs as instructed every 4 hours as needed. For shortness of breath or wheezing. - Cholecalciferol, Vitamin D3, (VITAMIN D-3) 2,000 unit cap Take 1 capsule by mouth once daily. - montelukast (SINGULAIR) 10 mg tablet Take 1 tablet by mouth daily at bedtime. - beclomethasone (QVAR REDIHALER) 40 mcg/actuation inhaler Inhale 1 Puff as instructed twice daily. - tiZANidine (ZANAFLEX) 4 mg tablet Take 1 tablet by mouth every 8 hours as needed (muscle spasms). - naproxen (NAPROSYN) 500 mg tablet Take 1 tablet by mouth twice daily with meals. Take with food. - fluticasone (FLONASE) 50 mcg/actuation nasal spray Use 2 Sprays in each nostril once daily. Rinse mouth after use. - nitroglycerin sublingual (NITROQUICK) 0.4 mg SL tablet Dissolve 1 tablet under the tongue as needed. FOR CHEST PAIN. IF NO RELIEF CALL 911 Problem List As Of Date 10/08/2020 Noted Resolved Mitral Valve Prolapse [I34.1] 10/08/2009 Abdominal pain, epigastric [R10.13] Duodenitis without mention of hemorrhage [K29.8*12/23/2009 02/16/2010 Acute gastritis without mention of hemorrhage [*12/23/2009 01/09/2011 Anxiety [F41.9] 02/16/2010 Menorrhagia [N92.0] 05/02/2012 Essential hypertension, benign [I10] 05/21/2012 Reactive airway disease [J45.909] 10/31/2017 Encounter Status:Closed by [employer], PRODUSER on 10/11/20[facility] 12-23-2009 History of Past illness Narrative* Problem Noted Date Resolved Date Duodenitis without mention of hemorrhage 010 02/16/2010 Acute gastritis without mention of hemorrhage 01/09/2011 documented as of this encounter (statuses as of 07/11/2021) [facility]10-07-2010 History of Past illness Narrative* Problem Noted Date Resolved Date Duodenitis without mention of hemorrhage 010 02/16/2010 Acute gastritis without mention of hemorrhage 01/09/2011 documented as of this encounter (statuses as of 09/19/2021) [facility] Future Appointments Appointment Date:04/13/2021 09:00:00 AM Scheduled Provider:FORD BENJAMIN Location:[facility] Appointment Type:PC PHOTO FINISHER Unassigned Hospital Follow Up [facility] Evaluation + Plan note Future Appointments Appointment Date:05/11/2021 01:30:00 PM Scheduled Provider:FORD BENJAMIN Location:[facility] Appointment Type:PC OV [facility] Evaluation + Plan note Future Appointments Appointment Date:08/11/2021 01:30:00 PM Scheduled Provider:FORD BENJMAIN Location:[facility] Appointment Type:PC OV [facility] Evaluation + Plan note Future Appointments Appointment Date:06/02/2021 02:30:00 PM Scheduled Provider: Location:[facility] Appointment Type:PT Paty Noel/[place] Appointment Date:08/11/2021 01:30:00 PM Scheduled Provider:FORD BENJAMIN Location:[facility] Appointment Type:PC OV [facility] Evaluation + Plan note Future Appointments Appointment Date:02/10/2022 02:00:00 PM Scheduled Provider:FORD BENJAMIN Location:[facility] Appointment Type:PC Wellness Annual [facility] Evaluation + Plan note Future Appointments Appointment Date:02/16/2023 03:00:00 PM Scheduled Provider:FORD BENJAMIN Location:[facility] Appointment Type:PC Wellness Medicare Diagnostic Tests Pending * Urine Culture 08/17/22 Future Scheduled Tests Laboratory* Thyroid Stimulating Hormone 08/17/22 Radiology* US Bladder 08/17/22 * US Renal 08/17/22 [facility] Evaluation + Plan note Future Appointments Appointment Date:11/02/2022 02:30:00 PM Scheduled Provider: Location:HEM ONC Appointment Type:HEM ONC OV Follow Up Appointment Date:02/16/2023 03:00:00 PM Scheduled Provider:FORD BENJAMIN Location:[facility] Appointment Type:PC Wellness Medicare Diagnostic Tests Pending * Methylmalonic Acid 10/04/22 * Circulating Anticoagulants - Panel 10/04/22 Future Scheduled Tests Laboratory* Thyroid Stimulating Hormone 08/17/22 [facility] Evaluation + Plan note Future Appointments Appointment Date:12/07/2022 04:00:00 PM Scheduled Provider: Location:HEM ONC Appointment Type:HEM ONC OV Follow Up Appointment Date:02/23/2023 03:00:00 PM Scheduled Provider:FORD BENJAMIN Location:[facility] Appointment Type:PC Wellness Medicare Future Scheduled Tests Laboratory* Thyroid Stimulating Hormone 08/17/22 [facility] evaluation + Plan note Future Appointments Appointment Date:02/23/2023 03:00:00 PM Scheduled Provider:FORD BENJAMIN Location:[facility] Appointment Type:PC Wellness Medicare Future Scheduled Tests Laboratory* Thyroid Stimulating Hormone 08/17/22 [facility] Evaluation note* Diagnosis Essential hypertension, benign- Primary Screening for lipid disorders documented in this encounter [facility] note* Diagnosis Encounter for screening mammogram for breast cancer documented in this encounter [facility] course Narrative No data available for this section [facility] Hospital Discharge instructions No data available for this section [facility] Progress note No data available for this section [facility] Reason for referral (narrative)* Diagnostic Procedure Only (Routine) - Pending Review Specialty Diagnoses / Procedures Referred By Contjoni t Referred To Contact [facility] Diagnoses Encounter for screening mammogram for breast cancer Procedures GRACIELA SCREENING SCREENING MAMMOGRAPHY BI 2-VIEW BREAST INC Beronica Wong MD [address] [place] [address] [facility] [address] [place] [address] Referral ID Status Reason Start Date Expiration Date Visits Requested Visits Authorized [id number] Pending Review Auto-Generat ed Referral 09/14/2021 10/14/2022 1 1 [facility] Summary Purpose Family History No Family History Records FoundNo Family History Records Found No data available for this section No Family History Records Found No data available for this section No data available for this section No data available for this section No Family History Records Found Advance Directives No Advanced Directives Records FoundDocuments on File Type Date Recorded Patient Physician General Practice Expl anation Advance Directive(s) Latest Code Status on File Code Status Date Activated Date Inactivated Comments Full Code 04/06/2021 2:11 AM Documents on File Type Date Recorded Patient Physician General Practice Expl anation Advance Directive(s) Latest Code Status on File Code Status Date Activated Date Inactivated Comments Full Code 04/06/2021 2:11 AM Additional Source Comments INFORMATION SOURCE (unrecogn ized section and content) DATE CREATED AUTHOR AUTHOR'S ORGANIZ ATION 09/19/2021 [facility] DATE CREATED AUTHOR AUTHOR'S ORGANIZ ATION 10/17/2022 [facility] DATE CREATED AUTHOR AUTHOR'S ORGANIZ ATION 03/15/2023 [facility] Source Comments (unrecognize d section and content) In the event this informatio n is protected by the Federal Confidentiality of Alcohol and Drug Abuse Patient Records regulations: The Federal rules restrict any use of the information to criminally investigate or prosecute any alcohol or drug abuse patient.[facility] Rehabilitation[facility] the event this information is protected by the Federal Confidentiality of Alcohol and Drug Abuse Patient Records regulations: The Federal rules restrict any use of the information to criminally investigate or prosecute any alcohol or drug abuse patient.[facility] Rehabilitation[facility] the event this information is protected by the Federal Confidentiality of Alcohol and Drug Abuse Patient Records regulations: The Federal rules restrict any use of the information to criminally investigate or prosecute any alcohol or drug abuse patient.[facility] Care Teams (unrecognized sec tion and content) Planner Chief Relationship Specialty Start Date End Date Beronica Haley MD [address], [place] [phone] PCP - General Family Practice 01/06/10 Planner Chief Relationship Specialty Start Date End Date Beronica Haley MD [address] [place] [phone] PCP - General Family Medicine 04/05/21 Planner Chief Relationship Specialty Start Date End Date Beronica Haley MD [address] [place] [phone] PCP - General Family Medicine 04/05/21 Planner Chief Relationship Specialty Start Date End Date Beronica Haley MD [address], [place] [phone] PCP - General Family Practice 01/06/10 Planner Chief Relationship Specialty Start Date End Date Beronica Haley MD [address] [place] [phone] PCP - General Family Medicine 04/05/21 Planner Chief Relationship Specialty Start Date End Date Beronica Haley MD [address] [place] [phone] PCP - General Family Medicine 04/05/21 Planner Chief Relationship Specialty Start Date End Date Beronica Haley MD [address] [place] [phone] PCP - General Family Medicine 04/05/21 Reason for Visit (unrecogniz ed section and content) FOR RECORDS PERTAINING TO PATIENTS WHO ARE OR HAVE BEEN ENROLLED IN A CHEMICAL DEPENDENCY/SUBSTANCEABUSE PROGRAM, SOME INFORMATION MAY BE OMITTED. This clinical summary was aggregated from multiple sources. Caution should be exercised in using it in the provision of clinical care. This summary normalizes information from multiple sources, and as a consequence, information in this document may materially change the coding, format and clinical context of patient data. In addition, data may be omitted in some cases. CLINICAL DECISIONS SHOULD BE BASED ON THE PRIMARY CLINICAL RECORDS. [facility] [employer] [facility]. provides no warranty or guarantee of the accuracy or completeness of information in this document.
== END | disposition home or self-care (01) ==
PROVIDERS: PCP Nurse Practitioner Primary Care; Referring Provider Psychiatry & Neurology Neurology; Visit Provider Psychiatry & Neurology Neurology
DX: Z86.73 Personal history of transient ischemic attack (TIA), and cerebral infarction without residual deficits (principal); Z98.890 Other specified postprocedural states
CPT/HCPCS: 93880

== ENCOUNTER 2023-07-24 14:26 | Outpatient (RCR) | payer MEDICAID, SELFPAY ==
--- NOTE | 2023-07-24 15:43 | HP.PTEVAL ---
Patient's Visit Information Visit Information Visit Information: ANA PAULA CEJA is a 58 year old F referred to Physical Therapy by PARMINDER Davis with a diagnosis of LOW BACK PAIN WITH RADIATION. Date of Evaluation: 07/24/23 Physical Therapist: Elier Infante, PT, Cert MDT, OCS Visit Plan Frequency: 2x /Week Duration: 4 Weeks Plan: PATIENT IS HIGHLY IRRITABLE PT INTERVENTIONS AQUATIC THERAPY WITH DLS,POSTURAL EX'S ,LE FLEXABILITY , GRADE LUMBAR ROM JAG AND ACTIVITY MODIFICATION Subjective Subjective: This 58 y/o female presents to physical therapy with lumbar radiculopathy . Patient has had lumbar pain with radicular symptoms for ~ 5 months. Patient symptoms occurred with insidious onset of leg symptoms . Seen Dr and did x-rays and prescribed flexeril. Also plan to see Spine surgeon . Patient pain located left lumbar buttock hamstrings calf to toes ,described as shooting pain . Patient has tingling in leg. Aggravating factors bending ,lifting ,sitting ,walking and standing. Alleviating factors rest. Coughing/sneezing +. Bowel/bladder - . Patient pain affects sleeping. Patient has no prior treatment or interventions. Patient has no abnormal night pain. 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 Patient pain affects QOL and function and ADLS's. Patient goals to decrease pain improve function. SOCIAL: single VOCATION: unemployed Pain Left Back: Pain Intensity (Out of 10): 9 Pain Intensity Range: 10 Objective Objective: POSTURE: mild forward posture GAIT : reciprocal pattern antalgic gait with straight cane forward posture PALAPTION: tender Left SI/LS left side NEURO: c/o tingling left leg ,reflexes L3-4,L4-5,L5-S1 LUMBAR ROM: flexion mod loss pain ,extension mod/severe loss pain ,side glides mod loss pain FLEXABILITY: hamstrings mod tight Special Tests L/S Slump test left side: Positive L/S Slump test right side: Negative L/S Left Straight Leg Raise: Positive L/S Right Straight Leg Raise: Negative Lumbar Standing: Flexion - Mechanical Response: No effect Lumbar Standing: Flexion - Symptoms During Testing: Increases Lumbar Standing: Flexion - Symptoms After Testing: Worse Lumbar Standing: Extension - Mechanical Response: No effect Lumbar Standing: Extension - Symptoms During Testing: Increases Lumbar Standing: Extension - Symptoms After Testing: Worse Lumbar Standing: Right Side Glides - Mechanical Response: No effect Lumbar Standing: Right Side [place] - Symptoms During Testing: Increases Lumbar Standing: Right Side [place] - Symptoms After Testing: Worse Lumbar Standing: Left Side [place] - Mechanical Response: No effect Lumbar Standing: Left Side [place] - Symptoms During Testing: Increases Lumbar Standing: Left Side [place] - Symptoms After Testing: Worse Balance/Special Test Scores Oswestry Low Back Score: 34 Goals Goal 1:: Patient to be I with Aquatic therapy Goal Time Frame: 4-6 Weeks Goal 2:: Patient to demonstrate 40% improvement with decrease pain and improved function Goal Time Frame: 4-6 Weeks Goal 3:: Patient to improve lumbar ROM for function of recovery for ADL's and put on shoes. Goal Time Frame: 4-6 Weeks Goal 4:: Patient to improve back oswestry score by 3-5 points to improve QOL and function Goal Time Frame: 4-6 Weeks Goal 5:: Patient be able to walk or stand with less pain to perform housework tasks Goal Time Frame: 4-6 Weeks Rehabilitation Potential Physical Therapy Diagnosis: This patient has lumbar radiculopathy with possible disc vs stenosis left side with pain with motion testing and positioning .Worse with walking standing ,bending ,lifting. No preference of direction decreases symptoms thus benefit from skilled PT and Aquatic therapy Rehabilitation Potential: Good Anticipated Interventions Patient/Client Instruction: Educate patient on: Condition and Plan of Care For the Purpose of:: To decrease pain, To increase ROM, To improve muscle performance and motor function, To improve ability to perform ADL's, To increase tolerance to activity/condition/position, To improve ability of physical actions for home/community/work/leisure, To improve health of tissue, To decrease soft tissue restriction, To increase flexibility/ROM, To improve balance, To reduce risk of recurrence, To prevent re-injury and To improve tolerance to ADL's Therapeutic Exercise to Include: Strength training, Body mechanics, Postural training, Flexibilty training, In an aquatic setting and Dynamic Lumbar Stabilization For the Purpose of:: To decrease pain, To increase ROM, To improve muscle performance and motor function, To increase tolerance to activity/condition/position, To improve ability of physical actions for home/community/work/leisure, To improve gait and locomotor functions, To improve health of tissue, To decrease soft tissue restriction, To increase flexibility/ROM, To reduce risk of recurrence, To facilitate caregiver knowledge and To prevent re-injury TENS: Yes IF ES: Yes Cryotherapy (ice pack, ice massage): Yes Thermo therapy (hot pack): Yes Ultrasound (thermal/non thermal): Yes For the Purpose of:: To decrease pain, To increase ROM, To improve nutrient delivery to tissue, To increase oxygenation perfusion, To improve health of tissue and To decrease soft tissue restriction Text: Thank you for the opportunity to evaluate your patient. For Medicare and Medicare HMO plans, please review the plan of care and approve it. It will need to be FAXED BACK to us at [phone] for Medicare purposes. For Medicare only, by signing this I certify the plan of care. Please let me know if there are questions or concerns regarding this plan of care. Physician Signature: Date:
--- NOTE | 2023-10-04 18:28 | HP.PTDCSUM ---
Discharge Summary D/C summary: It has been my pleasure to treat ANA PAULA CEJA referred by Anival Post NP-C, with the diagnosis of LOW BACK PAIN WITH RADIATION for a total of 1 visit(s). Discharge Date: Please see the following information for a summary of their discharge status. Pain Left Back: Pain Intensity (Out of 10): 9 Goals Goal 1:: Patient to be I with Aquatic therapy Goal 2:: Patient to demonstrate 40% improvement with decrease pain and improved function Goal 3:: Patient to improve lumbar ROM for function of recovery for ADL's and put on shoes. Goal 4:: Patient to improve back oswestry score by 3-5 points to improve QOL and function Goal 5:: Patient be able to walk or stand with less pain to perform housework tasks Plan Plan: PATIENT IS HIGHLY IRRITABLE PT INTERVENTIONS AQUATIC THERAPY WITH DLS,POSTURAL EX'S ,LE FLEXABILITY , GRADE LUMBAR ROM JAG AND ACTIVITY MODIFICATION D/C Information d/c sentence: If there are questions or concerns regarding this patient's physical therapy, please feel free to call me at [phone]. Thank you for the referral of this patient. Sincerely, Elier Infante, PT, Cert MDT, OCS Balance/Gait/Functional tests Balance/Special Test Scores Oswestry Low Back Score: 34
== END 2023-07-24 19:00 | disposition home or self-care (01) ==
LOC: PT 14:26
PROVIDERS: PCP Nurse Practitioner Primary Care; Referring Provider Nurse Practitioner Primary Care; Visit Provider Nurse Practitioner Primary Care
DX: M54.50 Low back pain, unspecified (principal)
CPT/HCPCS: 97162

== ENCOUNTER → 2024-01-09 | Outpatient (CLI) | payer MEDICAID, SELFPAY ==
[2024-01-09 12:18] LABS: Hematocrit 43.9 % (37-47); Hemoglobin 15.1 g/dL (12.0-15.0); Mean Corp Hgb Conc 34.4 g/dL (32-36); Mean Corpuscular Hgb 34.7 pg (27.0-32.0); Mean Corpuscular Volume 100.9 fL (81-99); Mean Platelet Vol. 10.2 fl (6.2-12.0); Platelet Count 310 K/mm3 (150-450); RBC Distribution Width SD 45.1 fl (35.1-43.9); Red Blood Count 4.35 M/mm3 (4.2-5.4); White Blood Count 4.8 K/mm3 (4.4-11.0)
[2024-01-09 12:41] LABS: Vitamin B12 348 pg/mL (211-911)
[2024-01-09 13:24] LABS: ALB/GLOB Ratio 0.9 RATIO (0.9-2.4); AST(SGOT) 24 U/L (15-37); Alanine Aminotransfer ALT/SGPT 32 U/L (13-56); Albumin, Serum 3.6 g/dL (3.2-5.0); Alkaline Phosphatase 107 U/L (45-117); Anion Gap 8 (5-15); BUN 14 mg/dL (7-18); BUN/Creat Ratio 14.7 RATIO (10-20); Calcium,Total 9.4 mg/dL (8.5-10.1); Chloride 108 mmol/L (98-107); Cholesterol 225 mg/dL (200); Creatinine, Serum 0.95 mg/dL (0.55-1.02); EST Glomerular Filtration Rate 63 mL/min (>60); Est Glom Filt Rate - Afr Amer 77 mL/min (>60); Globulin 4.2 g/dL (2.2-4.2); Glucose 86 mg/dL (74-106); High Density Lipoprotein 66 mg/dL; Potassium 4.3 mmol/L (3.5-5.1); Protein, Total 7.8 g/dL (6.4-8.2); Sodium Level 139 mmol/L (136-145); Triglycerides 224 mg/dL; Very Low Density Lipoprotein 45 mg/dL (5-40)
[2024-01-14 21:06] LABS: Vitamin B1, Thiamine 79.9 nmol/L (66.5-200.0)
== END | disposition home or self-care (01) ==
LOC: MTLAB 09:47
PROVIDERS: PCP Nurse Practitioner Primary Care; Referring Provider Psychiatry & Neurology Neurology; Visit Provider Psychiatry & Neurology Neurology
DX: M54.16 Radiculopathy, lumbar region (principal); Z86.73 Personal history of transient ischemic attack (TIA), and cerebral infarction without residual deficits
CPT/HCPCS: 36415; 80053; 80061; 82607; 82746; 84425; 84443; 85027

== ENCOUNTER 2024-02-22 10:33 | Day surgery (SDC) | payer MEDICAID, SELFPAY ==
[2024-02-18 16:00] LABS: Anion Gap 5 (5-15); BUN 17 mg/dL (7-18); BUN/Creat Ratio 15.6 RATIO (10-20); Calcium,Total 9.1 mg/dL (8.5-10.1); Chloride 105 mmol/L (98-107); Creatinine, Serum 1.09 mg/dL (0.55-1.02); EST Glomerular Filtration Rate 54 mL/min (>60); Est Glom Filt Rate - Afr Amer 66 mL/min (>60); Glucose 91 mg/dL (74-106); Potassium 4.4 mmol/L (3.5-5.1); Sodium Level 138 mmol/L (136-145)
[2024-02-21 09:19] VITALS: BMI 34.0
--- NOTE | 2024-02-22 12:52 | CL.IE_ITS ---
Patient: ANA PAULA CEJA Study Date: 02/22/2024 Performing: Gibson Phillips MD : 1965 Age: 59 Gender: female PROCEDURES PERFORMED [id number])REMOVAL OF LOOP RECORDER INDICATIONS PROCEDURE DETAILS The patient was brought to the Catheterization Lab in the postabsorptive nonsedated state. Informed consent was obtained prior to the procedure. Local anesthetic was given subcutaneously to the left upper chest area with Lidocaine 2%. Incision was made to the left subclavicular area. ICM Loop Recorder was removed. Steri-strips applied to Lt chest area. The patient tolerated the procedure well. Estimated Blood Loss: 5 ml's IMPLANTED / EX-PLANTED DEVICES DEVICE PARAMETERS CONCLUSIONS / RECOMMENDATIONS PROCEDURE MEDICATIONS Versed 1 mg IV Oxygen: 2 L/min via nasal cannula Ancef 2 Gm IV @ 02/22/2024 12:07:45 Signed By Gibson Phillips MD On 02/22/2024 12:51:40 Gibson Phillips MD
== END 2024-02-22 13:43 | disposition home or self-care (01) ==
PROVIDERS: Physician Assistant Medical; PCP Nurse Practitioner Primary Care; Referring Provider Internal Medicine Cardiovascular Disease; Visit Provider Internal Medicine Cardiovascular Disease
DX: Z45.2 Encounter for adjustment and management of vascular access device (principal); J44.9 Chronic obstructive pulmonary disease, unspecified; I10 Essential (primary) hypertension; Z86.73 Personal history of transient ischemic attack (TIA), and cerebral infarction without residual deficits; I65.21 Occlusion and stenosis of right carotid artery; E78.00 Pure hypercholesterolemia, unspecified; F17.210 Nicotine dependence, cigarettes, uncomplicated; Z98.890 Other specified postprocedural states
CPT/HCPCS: 33286; 36415; 80048

== ENCOUNTER 2024-02-28 15:00 | Outpatient (RCR) | payer MEDICAID, SELFPAY | END 2024-02-28 19:00 | disposition home or self-care (01) | LOC: PT 15:00 | PROVIDERS: PCP Nurse Practitioner Primary Care; Referring Provider Orthopaedic Surgery; Visit Provider Orthopaedic Surgery | DX: M54.16 Radiculopathy, lumbar region (principal); M47.896 Other spondylosis, lumbar region; M48.061 Spinal stenosis, lumbar region without neurogenic claudication | CPT/HCPCS: 97113; 97162; 97530 ==

== ENCOUNTER → 2024-05-08 | Outpatient (CLI) | payer MEDICAID, SELFPAY ==
--- NOTE | 2024-05-08 13:48 | CDU_ITS ---
Reason For Study Reason For Study: S/P RT ENDARTERECTOMY Rt. Velocities/BP Lt. Velocities/BP Prox CCA 58.2/21.4 cm/sec. Prox CCA 105.2/26.7 cm/sec. Mid CCA 59.1/15.7 cm/sec. Mid CCA 60.9/21.6 cm/sec. Dist CCA 46.9/19.5 cm/sec. Dist CCA 62.1/21.6 cm/sec. Prox ICA 79.3/30.2 cm/sec. Prox ICA 56.3/23.2 cm/sec. Mid ICA 90.6/34.0 cm/sec. Mid ICA 78.7/34.7 cm/sec. Dist ICA 92.4/39.5 cm/sec. Dist ICA 91.6/40.0 cm/sec. Rt. ICA/CCA = 1.6. Lt. ICA/CCA = 1.5. Prox ECA 29.5/8.4 cm/sec. Prox ECA 107.0/15.7 cm/sec. Rt. Vert. 84.2/21.6 cm/sec. Lt. Vert. 56.0/27.8 cm/sec. Right Extracranial There is heterogeneous, irregular atherosclerotic plaque noted in the right common carotid artery. There is heterogeneous, irregular atherosclerotic plaque noted in the right internal carotid artery. There is heterogeneous, irregular atherosclerotic plaque noted in the right external carotid artery. Antegrade flow is noted in the right vertebral artery. Left Extracranial There is homogeneous, smooth atherosclerotic plaque noted in the left common carotid artery. There is heterogeneous, irregular atherosclerotic plaque noted in the left internal carotid artery. There is intimal thickening but no significant atherosclerotic plaque noted in the left external carotid artery. Antegrade flow is noted in the left vertebral artery. Procedure Carotid Duplex [id number]. This is a Carotid Duplex examination using B-mode, color flow and specral Doppler. Exam performed in department. VL/Carotid Duplex Ultrasound Interpretation Summary Mild (<50%) stenosis right extracranial internal carotid. Mild (<50%) stenosis left extracranial internal carotid. Patent and antegrade vertebrals bilaterally. Ordering Physician: Carlos Mehta Referring Physician: Carlos Mehta Performed By: Shanell Centeno RVT and Student
== END | disposition home or self-care (01) ==
LOC: CVS 13:45
PROVIDERS: PCP Nurse Practitioner Primary Care; Referring Provider Psychiatry & Neurology Neurology; Visit Provider Psychiatry & Neurology Neurology
DX: I65.23 Occlusion and stenosis of bilateral carotid arteries (principal)
CPT/HCPCS: 93880

== ENCOUNTER → 2024-12-17 | Outpatient (CLI) | payer MEDICAID, SELFPAY ==
--- NOTE | 2024-12-17 14:51 | CDU_ITS ---
Reason For Study Reason For Study: Lt CarotidBruit Rt. Velocities/BP Lt. Velocities/BP Prox CCA 92.8/21.6 cm/sec. Prox CCA 92.8/26.5 cm/sec. Mid CCA 58.2/25.1 cm/sec. Mid CCA 96.5/27.8 cm/sec. Dist CCA 57.2/21.4 cm/sec. Dist CCA 66.6/17.1 cm/sec. Prox ICA 90.4/32.7 cm/sec. Prox ICA 71.4/23.2 cm/sec. Mid ICA 103.4/32.1 cm/sec. Mid ICA 77.6/27.0 cm/sec. Dist ICA 107.0/41.3 cm/sec. Dist ICA 92.8/37.6 cm/sec. Rt. ICA/CCA = 1.8. Lt. ICA/CCA = 1.0. Prox ECA 145.4/43.1 cm/sec. Prox ECA 103.9/21.6 cm/sec. Rt. Vert. 39.3/7.3 cm/sec. Lt. Vert. 44.0/24.2 cm/sec. Right Extracranial There is homogeneous, smooth atherosclerotic plaque noted in the right common carotid artery. There is heterogeneous, irregular atherosclerotic plaque noted in the right internal carotid artery. There is heterogeneous, irregular atherosclerotic plaque noted in the right external carotid artery. The right external carotid artery is not well visualized. The right external carotid artery is tortuous. Antegrade flow is noted in the right vertebral artery. Left Extracranial There is homogeneous, smooth atherosclerotic plaque noted in the left common carotid artery. There is heterogeneous, irregular atherosclerotic plaque noted in the left internal carotid artery. HX CEA. There is homogeneous, smooth atherosclerotic plaque noted in the left external carotid artery. Antegrade flow is noted in the left vertebral artery. Procedure Carotid Duplex [id number]. This is a Carotid Duplex examination using B-mode, color flow and specral Doppler. The exam was diagnostic. This is a venous duplex using B-mode, color flow and spectral Doppler. VL/Carotid Duplex Ultrasound Interpretation Summary Normal right extracranial internal carotid. Normal left extracranial internal c arotid. Patent and antegrade vertebrals bilaterally. Ordering Physician: Carlos Mehta Referring Physician: Aniavl Post Performed By: Arun Lopez RVT
== END | disposition home or self-care (01) ==
PROVIDERS: PCP Nurse Practitioner Primary Care; Referring Provider Psychiatry & Neurology Neurology; Visit Provider Psychiatry & Neurology Neurology
DX: R09.89 Other specified symptoms and signs involving the circulatory and respiratory systems (principal)
CPT/HCPCS: 93880

== ENCOUNTER → 2025-02-04 | Outpatient (CLI) | payer MEDICAID, SELFPAY ==
--- NOTE | 2025-02-04 13:18 | NEURO ---
NCS and/or EMG Patient Report Ordering Doctor: Carlos Mehta DATE OF SERVICE: 02/04/25 Emilie presents with complaints of numbness below the left knee since a previous CVA. Electrodiagnostic findings: Left peroneal motor nerve demonstrates normal distal latency, amplitude and conduction velocity. Left tibial motor response within normal limits. Normal left tibial and left peroneal F?wave. Borderline prolonged H?reflex bilaterally. Sensory responses are normal. Needle EMG testing was performed in the left lower limb. All muscles tested showed no evidence of denervation with normal motor unit action potentials. Electrodiagnostic impression: This is a normal electrodiagnostic study of the left lower limb. There is no electrodiagnostic evidence for peripheral neuropathy or lumbosacral radiculopathy. Multi Select Codes Neurology Neurology Interp Codes: 23222-47 Musc test done w/n test comp (interp) and 77366-48 Nrv cndj tst 5-6 studies (interp)
== END | disposition home or self-care (01) ==
LOC: PSN 12:04
PROVIDERS: PCP Nurse Practitioner Primary Care; Referring Provider Psychiatry & Neurology Neurology; Visit Provider Psychiatry & Neurology Neurology
DX: R20.2 Paresthesia of skin (principal); M54.50 Low back pain, unspecified; M54.16 Radiculopathy, lumbar region
CPT/HCPCS: 95886; 95909